=== PATIENT | female | born 1940 | race Caucasian/White ===

== ENCOUNTER → 2020-07-12 09:18 | Outpatient (BNVA) | payer MEDICARE, SELFPAY | PROVIDERS: PCP Internal Medicine; Visit Provider Surgery | DX: E11.622 Type 2 diabetes mellitus with other skin ulcer (principal); E11.69 Type 2 diabetes mellitus with other specified complication; L89.154 Pressure ulcer of sacral region, stage 4; M86.9 Osteomyelitis, unspecified; D64.9 Anemia, unspecified; Z79.84 Long term (current) use of oral hypoglycemic drugs; Z79.899 Other long term (current) drug therapy | CPT/HCPCS: 99213 ==

== ENCOUNTER 2020-07-18 14:15 | Outpatient (RCR) | payer MEDICARE, SELFPAY | END 2020-11-01 13:23 | disposition home or self-care (01) | LOC: HO.WCC 14:15 | PROVIDERS: PCP Internal Medicine; Visit Provider Physician Assistant Surgical | DX: E11.622 Type 2 diabetes mellitus with other skin ulcer (principal); L89.154 Pressure ulcer of sacral region, stage 4; E11.69 Type 2 diabetes mellitus with other specified complication; M86.18 Other acute osteomyelitis, other site; I10 Essential (primary) hypertension; Z86.19 Personal history of other infectious and parasitic diseases; Z79.899 Other long term (current) drug therapy; Z79.891 Long term (current) use of opiate analgesic | CPT/HCPCS: 11042; 11043; 11044; 11045; 11046; 11047; 87071; 87077; 87147; 87186; 87205; 88304; 88305; 88311 ==

== ENCOUNTER 2020-09-11 15:32 | Inpatient (IN) | payer MEDICARE, SELFPAY ==
[2020-09-11] VITALS (7 sets, daily range): BP systolic 89–106; BP diastolic 41–62; PULSE 74–90; RESP 12–17; TEMP 36.4–36.7; O2SAT 99–100; BMI 19.5
--- NOTE | 2020-09-11 15:38 | ECG_ITS ---
Test Reason : SOB Blood Pressure : / mmHG Vent. Rate : 075 BPM Atrial Rate : 075 BPM P-R Int : 142 ms QRS Dur : 076 ms QT Int : 418 ms P-R-T Axes : 068 066 073 degrees QTc Int : 466 ms Normal sinus rhythm Normal ECG When compared with ECG of 22-FEB-2020 16:03, T wave amplitude has increased in Inferior leads Nonspecific T wave abnormality no longer evident in Lateral leads Referred By: Haley Mcmahon Electronically Signed By:MAURICE HERNANDEZ MD
--- NOTE | 2020-09-11 15:39 | XR_ITS ---
EXAMINATION: CHEST AND PELVIS CLINICAL INFORMATION: Pneumonia. Weakness. Wound. Evaluate for osteo COMPARISON: None TECHNIQUE: AP portable chest. Single limited oblique view of the pelvis. FINDINGS: Rotated AP view of the chest demonstrates some parenchymal disease within the mid right lung. No pneumothorax or pleural effusion. Heart normal size. No evidence of pulmonary edema. Limited AP view of the pelvis which is oblique demonstrate patient be status post what appears to be previous instrumentation L5-S1 with pedicle screw and van fixation. On the provided views no definite acute fracture or diastases is seen. Evaluation for possible osteomyelitis is extremely limited and if better evaluation is necessary CT to look for bony destruction or MRI or tagged white blood cell nuclear medicine study may give more information. XR/XR chest 1V IMPRESSION: Right lung disease. Extremely limited pelvic view as described.
--- NOTE | 2020-09-11 15:41 | ED.RECABL ---
HPI - Recheck/Abnormal Lab/Rx General Chief Complaint: Recheck/Abnormal Lab/Rx <Haley Mcmahon NP - Last Filed: 09/11/20 21:23> Stated Complaint: sepsis <Haley Mcmahon NP - Last Filed: 09/11/20 21:23> Time Seen by Provider: 09/11/20 15:38 <Haley Mcmahon NP - Last Filed: 09/11/20 21:23> Source: EMS <Haley Mcmahon NP - Last Filed: 09/11/20 21:23> Mode of arrival: EMS <Haley Mcmahon NP - Last Filed: 09/11/20 21:23> Limitations: no limitations <Haley Mcmahon NP - Last Filed: 09/11/20 21:23> History of Present Illness HPI narrative: 80-year-old female coming from [facility] with a past medical history of stage IV pressure ulcer with history of osteomyelitis (02/09/20, MRSA/enterococcal) followed by the [facility] and surgery, diabetes, high cholesterol, hypertension, anemia, DJD, chronic venous stasis ulcers dermatitis, CAD, anxiety here with abnormal WBC count. Per report from EMS patient had labs drawn today which showed a white blood cell count of 16,000. Per report the patient has been more confused from baseline. EMS who knows the patient well as a transfer her weekly to her wound care appointment tell me that it to them her mental status seems to be at baseline. Patient complaining of some abdominal upset, and nausea. She denies any vomiting, diarrhea, cough, shortness of breath, chest pain, fevers, chills, body aches <Haley Mcmahon NP - Last Filed: 09/11/20 21:23> MD complaint: abnormal lab <Haley Mcmahon NP - Last Filed: 09/11/20 21:23> Returns today for: called because of abnormal lab/test <Haley Mcmahon NP - Last Filed: 09/11/20 21:23> Symptoms since prior visit: no new symptoms <Haley Mcmahon NP - Last Filed: 09/11/20 21:23> Related Data Home Medications: Home Medications Medication Instructions Recorded Confirmed Lactobacillus rhamnosus GG 10 1 cap PO BID PRN 07/12/20 09/11/20 billion cell capsule acetaminophen 325 mg capsule 650 mg PO Q6H PRN 07/12/20 09/11/20 ammonium lactate 12 % lotion 1 applic TOPICAL DAILY 07/12/20 09/11/20 bisacodyl 5 mg tablet,delayed 5 mg PO BEDTIME PRN 07/12/20 09/11/20 release diclofenac sodium 1 % topical gel 4 g TOPICAL BID g 07/12/20 09/11/20 metformin 1,000 mg tablet,extended 1,000 mg PO DAILY 07/12/20 09/11/20 release 24hr metoprolol tartrate 50 mg tablet 50 mg PO BID 07/12/20 09/11/20 oxycodone 10 mg tablet 10 mg PO TID PRN 07/12/20 09/11/20 oxycodone 15 mg tablet,crush 15 mg PO Q12H 07/12/20 09/11/20 resistant,extended release 12 hr pantoprazole 40 mg tablet,delayed 40 mg PO DAILY 07/12/20 09/11/20 release polyethylene glycol 3350 17 gram 17 g PO DAILY 07/12/20 09/11/20 oral powder packet sennosides 8.6 mg tablet 8.6 mg PO BEDTIME PRN 07/12/20 09/11/20 <Haley Mcmahon NP - Last Filed: 09/11/20 21:23> Allergies/Adverse Reactions: Allergies Allergy/AdvReac Type Severity Reaction Status Date / Time Clindamycin Allergy Unknown Rash Uncoded 05/10/20 00:00 <Haley Mcmahon NP - Last Filed: 09/11/20 21:23> Review of Systems Review of Systems: Yes all other systems are reviewed and are negative <Haley Mcmahon NP - Last Filed: 09/11/20 21:23> Constitutional: Constitutional: Reports no additional constitutional complaints, Denies body ache(s), Denies chills, Denies fever(s), Denies headache(s) and Denies weakness <Haley Mcmahon NP - Last Filed: 09/11/20 21:23> Eyes: Eyes: Reports no additional eye complaints and Denies change in vision <Haley Mcmahon [employer] - Last Filed: 09/11/20 21:23> ENT: Reports system reviewed and no additional complaints, except as documented, Denies dizziness, Denies headache(s), Denies nasal congestion, Denies nasal discharge and Denies neck pain <Haley Mcmahon [employer] - Last Filed: 09/11/20 21:23> Cardiovascular: Cardiovascular: Reports no additional cardiovascular complaints, Denies chest pain, Denies leg edema and Denies dyspnea <Haley Mcmahon [employer] - Last Filed: 09/11/20 21:23> Respiratory: Respiratory: Reports no additional respiratory complaints, Denies cough and Denies dyspnea <Haley Mcmahon [employer]ST[employer] - Last Filed: 09/11/20 21:23> Gastrointestinal: Gastrointestinal: Reports no additional gastrointestinal complaints, Reports abdominal pain, Denies diarrhea, Reports nausea and Denies vomiting <Haley Mcmahon [employer]ST[employer] - Last Filed: 09/11/20 21:23> Genitourinary: Genitourinary: Reports no additional female genitourinary complaints and Denies urinary incontinence <Haley Mcmahon [employer] - Last Filed: 09/11/20 21:23> Musculoskeletal: Musculoskeletal: Reports no additional musculoskeletal complaints, Denies back pain, Denies arthralgias, Denies joint swelling, Denies neck pain, Denies numbness and Denies tingling <Haley Mcmahon [employer]ST[employer]ER - Last Filed: 09/11/20 21:23> Integumentary/Breasts: Skin/Breast: Reports system reviewed and no additional complaints, except as docu and Denies rash <Haley Mcmahon [employer] - Last Filed: 09/11/20 21:23> Neurologic: Reports system reviewed and no additional complaints, except as documented, Denies Abnormal speech present, Denies dizziness, Denies headache(s), Denies numbness, Denies tingling and Denies weakness <Haley Mcmahon [employer] - Last Filed: 09/11/20 21:23> PMFSH Past Medical History Attestation statement: The following information was validated with the patient. <Haley Mcmahon [employer] - Last Filed: 09/11/20 21:23> Source: old records reviewed and nursing notes reviewed <Haley Mcmahon NP - Last Filed: 09/11/20 21:23> Medical History: Medical History Anemia Anxiety disorder Chondrocostal junction syndrome [tietze] COVID-19 Hyperlipidemia Lymphedema Osteomyelitis of sacrum Type 2 diabetes mellitus <Haley Mcmahon NP - Last Filed: 09/11/20 21:23> Surgical History: Surgical History H/O lumbosacral spine surgery Sacral decubitus ulcer, stage IV <Haley Mcmahon NP - Last Filed: 09/11/20 21:23> Social History Social History: Social History Alcohol intake: never Smoking Status: Never smoker Use of substances other than those prescribed or required for medical reasons: No Advance Directives: No Advance Directives Information Provided: No <Haley Mcmahon NP - Last Filed: 09/11/20 21:23> Physical Exam Vital Signs: Vital Signs: Last Vital Signs Temp 97.6 F 09/11/20 21:28 Pulse 88 09/11/20 21:47 Resp 16 09/11/20 21:47 BP 106/61 09/11/20 21:47 Pulse Ox 100 09/11/20 21:47 Body Mass Index 19.5 <Haley Mcmahon NP - Last Filed: 09/11/20 21:23> Vital Signs: Last Vital Signs Temp 97.6 F 09/11/20 21:28 Pulse 88 09/11/20 21:47 Resp 16 09/11/20 21:47 BP 106/61 09/11/20 21:47 Pulse Ox 100 09/11/20 21:47 Body Mass Index 19.5 <Eduar Barahona MD - Last Filed: 09/11/20 22:30> Const: Other: thin appearing, tacky mucous membranes <Haley Mcmahon NP - Last Filed: 09/11/20 21:23> General: cooperative and no acute distress <Haley Mcmahon [employer]ST[employer] - Last Filed: 09/11/20 21:23> Orientation/consciousness: patient oriented x3 <Haley Mcmahon [employer] - Last Filed: 09/11/20 21:23> Limitations: no limitations <Haley Mcmahon NP - Last Filed: 09/11/20 21:23> HENMT: Head: Yes normal to inspection <Haley Mcmahon [employer]ER - Last Filed: 09/11/20 21:23> Ears: hearing grossly normal bilaterally <Haley Mcmahon [employer]ST[employer]ER - Last Filed: 09/11/20 21:23> General nose exam: Normal external nose present <Haley Mcmahon [employer]ER - Last Filed: 09/11/20 21:23> Face and sinus: Yes normal facial exam <Haley Mcmahon [employer]ST[employer]ER - Last Filed: 09/11/20 21:23> Mouth: Normal oral and palatal mucosa present <Haley Mcmahon [employer]ST[employer]ER - Last Filed: 09/11/20 21:23> Throat: Yes posterior oropharynx normal <Haley Mcmahon [employer]ST[employer]ER - Last Filed: 09/11/20 21:23> Eyes: General: appearance normal, both eyes and all related structures <Haley Mcmahon [employer]ST[employer]ER - Last Filed: 09/11/20 21:23> Pupils: Equal, round and reactive pupils present <Haley Mcmahon [employer]STALLER - Last Filed: 09/11/20 21:23> Neck: Neck: Yes normal visual inspection <Haley Mcmahon [employer]STALLER - Last Filed: 09/11/20 21:23> Chest: Chest palpation & inspection: normal inspection of the chest <Haley Mcmahon NP - Last Filed: 09/11/20 21:23> Resp: Effort & Inspection: normal respiratory effort <Haley Mcmahon [employer] INSTALLER - Last Filed: 09/11/20 21:23> Auscultation: clear to auscultation bilaterally <Haley Mcmahon [employer]ER INSTALLER - Last Filed: 09/11/20 21:23> Cardio: Rate: regular rate <Haley Mcmahon NP - Last Filed: 09/11/20 21:23> Rhythm: regular rhythm <Haley Mcmahon NP - Last Filed: 09/11/20:23> Peripheral pulses: Peripheral pulses 2+ throughout <Haley Mcmahon NP - Last Filed: 09/11/20 21:23> GI: Other: Mild diffuse tenderness. No focal tenderness, rebound or guarding <Haley Mcmahon NP - Last Filed: 09/11/20:23> Inspection: Yes normal to inspection <Haley Mcmahon NP - Last Filed: 09/11/20 21:23> Palpation (GI): Soft to palpation <Haley Mcmahon NP - Last Filed: 09/11/20:23> Auscultation: normal bowel sounds <Haley Mcmahon NP - Last Filed: 09/11/20 21:23> Back/Spine/Pelvis: Thoracic/Lumbar Spine: thoracic and lumbar spine normal to inspection <Haley Mcmahon NP - Last Filed: 09/11/20:23> Skin: Other: Stage IV pressure ulcer noted over the sacrum. Dressing removed with purulent drainage noted on the dressing and partially over the wound bed with a foul odor. Unable to completely evaluate the wound. <Haley Mcmahon NP - Last Filed: 09/11/20 21:23> General skin exam: no rashes or lesions noted <Haley Mcmahon NP - Last Filed: 09/11/20 21:23> Neuro: General: patient oriented x3, no focal motor deficits, normal sensation to monofilament and Unable to assess gait <Haley Mcmahon NP - Last Filed: 09/11/20 21:23> Cranial nerves: Yes Equal, round and reactive pupils present <Haley cMmahon NP - Last Filed: 09/11/20 21:23> Cognition (Neuro): normal cognition <Haley Mcmahon NP - Last Filed: 09/11/20 21:23> Speech: No Abnormal speech present <Haley Mcmahon NP - Last Filed: 09/11/20 21:23> Gait exam (Neuro): Unable to assess gait <Haley Mcmahon NP - Last Filed: 09/11/20 21:23> Motor exam (neuro): 5/5 motor strength present throughout <Haley Mcmahon NP - Last Filed: 09/11/20 21:23> Sensory Exam: Normal double simultaneous stimulation for sensation <Haley Mcmahon NP - Last Filed: 09/11/20 21:23> Extrem: General: Yes normal to inspection <Haley Mcmahon NP - Last Filed: 09/11/20 21:23> Course Course Course Narrative: 80 yo female from [facility] sent for leukocytosis and AMS. On arrival the patient is alert and oriented x3. Per EMS who know patient very well she is at her baseline. She was noted to be tachycardic and hypotensive on per EMS (HR 130, bp 82/43 and received 500ml NS, 4mg IV zofran) and c/o generalized abdominal discomfort and nausea. On arrival here she has a heart rate of 74 and a blood pressure of 91/43. Afebrile. On exam she does have some mild diffuse abdominal pain with no focal tenderness. Of note, she has a known stage 4 pressure ulcer with a h/o osteomyelitis not currently on antibiotics. The wound is noted stage 4 on the sacrum with foul odor, purulent drainage, tunneling. No surround erythema outside of the wound bed. Will need labs including blood cultures and lactic acid, chest x-ray, UA, EKG, COVID testing, imaging of the sacral wound. At this time infection is suspected. Normal saline 30 cc/kilos ordered. Antibiotics ordered. 1814-reviewed labs which show leukocytosis, anemia unchanged from baseline, elevated lactic acid, acute renal failure with hyperkalemia 7.2 with a bicarb 14. Metabolic acidosis likely contributing to hyperkalemia likely secondary to sepsis. EKG shows normal sinus rhythm. No EKG changes noted. Patient given insulin IV, dextrose IV, Kayexalate p.o. and calcium gluconate for cardiac protection. Edwards catheter ordered and placed by nursing. Purulent urine output of 50 cc noted. Patient on case monitor. CT A/P ordered. Will discuss with nephrology. 1899-Discussed with Evangelist Lema from nephrology. Recommended sodium bicarb 150meq in D5W bolus x1, re-check chem 7, start 2nd liter same at maintenance. Call back with update. If not diuresising and no change in potassium patient may need emergent dialysis and ICU admission. Discussed with the patient and she is aware of plan of care. I did speak to her Andrei and he is aware of plan of care. She is a full code and agreeable to dialysis if needed. Called pharmacy to order fluids. 2014-Delay in receiving fluids d/t pharmacy having to prepare it. Started now by nursing. 2100-After 30cc/kg bolus patient has a blood pressure of 89/41. Focused exam done. She is alert and oriented. Discussed with nephrology about starting pressers vs fluid resuscitation. They recommended aggressive fluid resuscitation as patient is likely volume depleted, hold on pressers until bolus of bicarb/D5W done then re-evaluate. Repeat lung sounds clear, stable saturations. Pharmacy assisted with vancomycin dosed. CT shows changes in the sacrum and buttocks consistent with ulcer with associated bony destructive changes with soft tissue swelling and air suggesting osteomyelitis. Sign out to Dr Barahona pending repeat labs, discussion with nephrology, admission. <Haley Mcmahon NP - Last Filed: 09/11/20 21:23> Reevaluation(s) Reevaluation #1: Patient repeat labs showed potassium of 5.8 creatinine of 4.09 bicarb improved to 19 will admit patient for urosepsis and acute renal failure <Eduar Barahona MD - Last Filed: 09/11/20 22:30> Time: 22:29 <Eduar Barahona MD - Last Filed: 09/11/20 22:30> MDM - Recheck/Abnormal Lab/Rx MDM Narrative Medical decision making narrative: Viral syndrome, COVID-19, pneumonia, UTI, ischemic colitis, osteomyelitis <Haley Mcmahon NP - Last Filed: 09/11/20 21:23> Medical Records Attestation: I reviewed the patient's medical records. <Haley Mcmahon NP - Last Filed: 09/11/20 21:23> Lab Data Attestation: I reviewed the patient's lab results. <Haley Mcmahon NP - Last Filed: 09/11/20 21:23> Result diagrams: : 09/11/20 16:33 09/11/20 21:34 <Haley Mcmahon NP - Last Filed: 09/11/20 21:23> Labs: Lab Results 09/11/20 09/11/20 09/11/20 Range/Units 16:32 16:32 16:32 WBC (4.8-10.8) X10*3/uL RBC (4.20-5.50) X10*6/uL Hgb (12.0-16.0) g/dl Hct (37-47) % MCV (80-98) fL MCH (27.0-33.0) pg MCHC (31.0-35.0) g/dl RDW (11.0-16.0) % Plt Count (160-400) X10*3/uL MPV (9.4-12.3) fL Immature Gran % (Auto) (0.0-0.4) % Neut % (Auto) (45-73) % Lymph % (Auto) (20-40) % Haines % (Auto) (2-11) % Eos % (Auto) (0-4) % Baso % (Auto) (0-2) % Lymph # (Auto) (1.2-4.9) X10*3/uL Haines # (Auto) (0.1-1.2) X10*3/uL Eos # (Auto) (0.0-0.4) X10*3/uL Baso # (Auto) (0.0-0.2) X10*3/uL Abs Immat Gran (auto) (0.00-0.03) X10*3/uL Absolute Neuts (auto) (2.0-8.3) X10*3/uL Absolute Nucleated RBC (0.0-0.012) X10*3/uL Nucleated RBC % (auto) (0.0-0.2) /100WBC PT (10.8-13.0) SEC INR (0.9-1.1) Sodium 137 (135-145) mmol/L Potassium 7.2 H* (3.3-5.1) mmol/l Chloride 103 (96-108) mmol/L Carbon Dioxide 14 L (22-29) mmol/L Anion Gap 27 H (12-20) BUN 115 H* (9-16) mg/dL Creatinine 4.18 H* (0.5-1.4) mg/dL Estim Creat Clear Calc 9.6 Estimated GFR 10 Random Glucose 89 (60-115) mg/dL Lactic Acid 3.8 H* (0.5-2.0) mmol/L Lactic Acid Fup @ 2Hr (0.5-2.0) mmol/L Calcium 8.4 (8.4-10.2) mg/dL Magnesium 2.2 (1.6-2.6) mg/dL Total Bilirubin 0.5 (0.0-1.0) mg/dL Direct Bilirubin 0.2 (0.0-0.5) mg/dL AST 18 (5-31) U/L ALT 7 (0-31) U/L Alkaline Phosphatase 96 (39-117) U/L Troponin I High Sens 5.1 (<3.5-17.0) ng/L Total Protein 6.7 (6.5-8.0) g/dL Albumin 2.4 L (3.5-5.0) g/dL Urine Color Urine Appearance Urine pH (5.0-8.0) Ur Specific Blaine (1.005-1.025) Urine Protein (NEG-TRACE) MG/DL Urine Glucose (UA) (NEG) MG/DL Urine Ketones (NEG) MG/DL Urine Blood (NEG) Urine Nitrite (NEG) Ur Leukocyte Esterase (NEG) Urine RBC (0) /HPF Urine WBC (0-4) /HPF Ur Squamous Epith Cells /LPF Urine Bacteria /LPF Coronavirus (PCR) (Negative) Influenza Type A (PCR) (Negative) Influenza Type B (PCR) (Negative) RSV RNA Qual (PCR) (Negative) 09/11/20 09/11/20 09/11/20 Range/Units 16:32 16:33 16:33 WBC 16.1 H (4.8-10.8) X10*3/uL RBC 3.54 L (4.20-5.50) X10*6/uL Hgb 8.7 L (12.0-16.0) g/dl Hct 29.6 L (37-47) % MCV 83.6 (80-98) fL MCH 24.6 L (27.0-33.0) pg MCHC 29.4 L (31.0-35.0) g/dl RDW 15.4 (11.0-16.0) % Plt Count 378 (160-400) X10*3/uL MPV 9.2 L (9.4-12.3) fL Immature Gran % (Auto) 1.0 H (0.0-0.4) % Neut % (Auto) 90.7 H (45-73) % Lymph % (Auto) 5.2 L (20-40) % Haines % (Auto) 3.0 (2-11) % Eos % (Auto) 0.0 (0-4) % Baso % (Auto) 0.1 (0-2) % Lymph # (Auto) 0.8 L (1.2-4.9) X10*3/uL Haines # (Auto) 0.5 (0.1-1.2) X10*3/uL Eos # (Auto) 0.0 (0.0-0.4) X10*3/uL Baso # (Auto) 0.0 (0.0-0.2) X10*3/uL Abs Immat Gran (auto) 0.16 H (0.00-0.03) X10*3/uL Absolute Neuts (auto) 14.6 H (2.0-8.3) X10*3/uL Absolute Nucleated RBC 0.000 (0.0-0.012) X10*3/uL Nucleated RBC % (auto) 0.0 (0.0-0.2) /100WBC PT 14.7 H (10.8-13.0) SEC INR 1.2 H (0.9-1.1) Sodium (135-145) mmol/L Potassium (3.3-5.1) mmol/l Chloride (96-108) mmol/L Carbon Dioxide (22-29) mmol/L Anion Gap (12-20) BUN (9-16) mg/dL Creatinine (0.5-1.4) mg/dL Estim Creat Clear Calc Estimated GFR Random Glucose (60-115) mg/dL Lactic Acid (0.5-2.0) mmol/L Lactic Acid Fup @ 2Hr (0.5-2.0) mmol/L Calcium (8.4-10.2) mg/dL Magnesium (1.6-2.6) mg/dL Total Bilirubin (0.0-1.0) mg/dL Direct Bilirubin (0.0-0.5) mg/dL AST (5-31) U/L ALT (0-31) U/L Alkaline Phosphatase (39-117) U/L Troponin I High Sens (<3.5-17.0) ng/L Total Protein (6.5-8.0) g/dL Albumin (3.5-5.0) g/dL Urine Color Urine Appearance Urine pH (5.0-8.0) Ur Specific Blaine (1.005-1.025) Urine Protein (NEG-TRACE) MG/DL Urine Glucose (UA) (NEG) MG/DL Urine Ketones (NEG) MG/DL Urine Blood (NEG) Urine Nitrite (NEG) Ur Leukocyte Esterase (NEG) Urine RBC (0) /HPF Urine WBC (0-4) /HPF Ur Squamous Epith Cells /LPF Urine Bacteria /LPF Coronavirus (PCR) NEGATIVE (Negative) Influenza Type A (PCR) NEGATIVE (Negative) Influenza Type B (PCR) NEGATIVE (Negative) RSV RNA Qual (PCR) NEGATIVE (Negative) 09/11/20 09/11/20 09/11/20 Range/Units 18:26 20:28 21:34 WBC (4.8-10.8) X10*3/uL RBC (4.20-5.50) X10*6/uL Hgb (12.0-16.0) g/dl Hct (37-47) % MCV (80-98) fL MCH (27.0-33.0) pg MCHC (31.0-35.0) g/dl RDW (11.0-16.0) % Plt Count (160-400) X10*3/uL MPV (9.4-12.3) fL Immature Gran % (Auto) (0.0-0.4) % Neut % (Auto) (45-73) % Lymph % (Auto) (20-40) % Haines % (Auto) (2-11) % Eos % (Auto) (0-4) % Baso % (Auto) (0-2) % Lymph # (Auto) (1.2-4.9) X10*3/uL Haines # (Auto) (0.1-1.2) X10*3/uL Eos # (Auto) (0.0-0.4) X10*3/uL Baso # (Auto) (0.0-0.2) X10*3/uL Abs Immat Gran (auto) (0.00-0.03) X10*3/uL Absolute Neuts (auto) (2.0-8.3) X10*3/uL Absolute Nucleated RBC (0.0-0.012) X10*3/uL Nucleated RBC % (auto) (0.0-0.2) /100WBC PT (10.8-13.0) SEC INR (0.9-1.1) Sodium 138 (135-145) mmol/L Potassium 5.8 H (3.3-5.1) mmol/l Chloride 101 (96-108) mmol/L Carbon Dioxide 19 L (22-29) mmol/L Anion Gap 24 H (12-20) BUN 110 H* (9-16) mg/dL Creatinine 4.09 H* (0.5-1.4) mg/dL Estim Creat Clear Calc 9.8 Estimated GFR 11 Random Glucose 278 H D (60-115) mg/dL Lactic Acid (0.5-2.0) mmol/L Lactic Acid Fup @ 2Hr 7.5 H* (0.5-2.0) mmol/L Calcium 7.9 L (8.4-10.2) mg/dL Magnesium (1.6-2.6) mg/dL Total Bilirubin (0.0-1.0) mg/dL Direct Bilirubin (0.0-0.5) mg/dL AST (5-31) U/L ALT (0-31) U/L Alkaline Phosphatase (39-117) U/L Troponin I High Sens (<3.5-17.0) ng/L Total Protein (6.5-8.0) g/dL Albumin (3.5-5.0) g/dL Urine Color YELLOW Urine Appearance TURBID Urine pH 7.0 (5.0-8.0) Ur Specific Blaine 1.025 (1.005-1.025) Urine Protein 2+ H (NEG-TRACE) MG/DL Urine Glucose (UA) 100 H (NEG) MG/DL Urine Ketones 5 (NEG) MG/DL Urine Blood 2+ H (NEG) Urine Nitrite POS H (NEG) Ur Leukocyte Esterase 3+ H (NEG) Urine RBC 10-14 H (0) /HPF Urine WBC TNTC H (0-4) /HPF Ur Squamous Epith Cells NONE /LPF Urine Bacteria 4+ /LPF Coronavirus (PCR) (Negative) Influenza Type A (PCR) (Negative) Influenza Type B (PCR) (Negative) RSV RNA Qual (PCR) (Negative) 09/11/20 Range/Units 21:34 WBC (4.8-10.8) X10*3/uL RBC (4.20-5.50) X10*6/uL Hgb (12.0-16.0) g/dl Hct (37-47) % MCV (80-98) fL MCH (27.0-33.0) pg MCHC (31.0-35.0) g/dl RDW (11.0-16.0) % Plt Count (160-400) X10*3/uL MPV (9.4-12.3) fL Immature Gran % (Auto) (0.0-0.4) % Neut % (Auto) (45-73) % Lymph % (Auto) (20-40) % Haines % (Auto) (2-11) % Eos % (Auto) (0-4) % Baso % (Auto) (0-2) % Lymph # (Auto) (1.2-4.9) X10*3/uL Haines # (Auto) (0.1-1.2) X10*3/uL Eos # (Auto) (0.0-0.4) X10*3/uL Baso # (Auto) (0.0-0.2) X10*3/uL Abs Immat Gran (auto) (0.00-0.03) X10*3/uL Absolute Neuts (auto) (2.0-8.3) X10*3/uL Absolute Nucleated RBC (0.0-0.012) X10*3/uL Nucleated RBC % (auto) (0.0-0.2) /100WBC PT (10.8-13.0) SEC INR (0.9-1.1) Sodium (135-145) mmol/L Potassium (3.3-5.1) mmol/l Chloride (96-108) mmol/L Carbon Dioxide (22-29) mmol/L Anion Gap (12-20) BUN (9-16) mg/dL Creatinine (0.5-1.4) mg/dL Estim Creat Clear Calc Estimated GFR Random Glucose (60-115) mg/dL Lactic Acid (0.5-2.0) mmol/L Lactic Acid Fup @ 2Hr (0.5-2.0) mmol/L Calcium (8.4-10.2) mg/dL Magnesium (1.6-2.6) mg/dL Total Bilirubin (0.0-1.0) mg/dL Direct Bilirubin (0.0-0.5) mg/dL AST (5-31) U/L ALT (0-31) U/L Alkaline Phosphatase (39-117) U/L Troponin I High Sens 5.7 (<3.5-17.0) ng/L Total Protein (6.5-8.0) g/dL Albumin (3.5-5.0) g/dL Urine Color Urine Appearance Urine pH (5.0-8.0) Ur Specific Blaine (1.005-1.025) Urine Protein (NEG-TRACE) MG/DL Urine Glucose (UA) (NEG) MG/DL Urine Ketones (NEG) MG/DL Urine Blood (NEG) Urine Nitrite (NEG) Ur Leukocyte Esterase (NEG) Urine RBC (0) /HPF Urine WBC (0-4) /HPF Ur Squamous Epith Cells /LPF Urine Bacteria /LPF Coronavirus (PCR) (Negative) Influenza Type A (PCR) (Negative) Influenza Type B (PCR) (Negative) RSV RNA Qual (PCR) (Negative) <Haley Mcmahon, ALLIE - Last Filed: 09/11/20 21:23> Lab Results 09/11/20 09/11/20 09/11/20 Range/Units 16:32 16:32 16:32 WBC (4.8-10.8) X10*3/uL RBC (4.20-5.50) X10*6/uL Hgb (12.0-16.0) g/dl Hct (37-47) % MCV (80-98) fL MCH (27.0-33.0) pg MCHC (31.0-35.0) g/dl RDW (11.0-16.0) % Plt Count (160-400) X10*3/uL MPV (9.4-12.3) fL Immature Gran % (Auto) (0.0-0.4) % Neut % (Auto) (45-73) % Lymph % (Auto) (20-40) % Haines % (Auto) (2-11) % Eos % (Auto) (0-4) % Baso % (Auto) (0-2) % Lymph # (Auto) (1.2-4.9) X10*3/uL Haines # (Auto) (0.1-1.2) X10*3/uL Eos # (Auto) (0.0-0.4) X10*3/uL Baso # (Auto) (0.0-0.2) X10*3/uL Abs Immat Gran (auto) (0.00-0.03) X10*3/uL Absolute Neuts (auto) (2.0-8.3) X10*3/uL Absolute Nucleated RBC (0.0-0.012) X10*3/uL Nucleated RBC % (auto) (0.0-0.2) /100WBC PT (10.8-13.0) SEC INR (0.9-1.1) Sodium 137 (135-145) mmol/L Potassium 7.2 H* (3.3-5.1) mmol/l Chloride 103 (96-108) mmol/L Carbon Dioxide 14 L (22-29) mmol/L Anion Gap 27 H (12-20) BUN 115 H* (9-16) mg/dL Creatinine 4.18 H* (0.5-1.4) mg/dL Estim Creat Clear Calc 9.6 Estimated GFR 10 Random Glucose 89 (60-115) mg/dL Lactic Acid 3.8 H* (0.5-2.0) mmol/L Lactic Acid Fup @ 2Hr (0.5-2.0) mmol/L Calcium 8.4 (8.4-10.2) mg/dL Magnesium 2.2 (1.6-2.6) mg/dL Total Bilirubin 0.5 (0.0-1.0) mg/dL Direct Bilirubin 0.2 (0.0-0.5) mg/dL AST 18 (5-31) U/L ALT 7 (0-31) U/L Alkaline Phosphatase 96 (39-117) U/L Troponin I High Sens 5.1 (<3.5-17.0) ng/L Total Protein 6.7 (6.5-8.0) g/dL Albumin 2.4 L (3.5-5.0) g/dL Urine Color Urine Appearance Urine pH (5.0-8.0) Ur Specific Blaine (1.005-1.025) Urine Protein (NEG-TRACE) MG/DL Urine Glucose (UA) (NEG) MG/DL Urine Ketones (NEG) MG/DL Urine Blood (NEG) Urine Nitrite (NEG) Ur Leukocyte Esterase (NEG) Urine RBC (0) /HPF Urine WBC (0-4) /HPF Ur Squamous Epith Cells /LPF Urine Bacteria /LPF Coronavirus (PCR) (Negative) Influenza Type A (PCR) (Negative) Influenza Type B (PCR) (Negative) RSV RNA Qual (PCR) (Negative) 09/11/20 09/11/20 09/11/20 Range/Units 16:32 16:33 16:33 WBC 16.1 H (4.8-10.8) X10*3/uL RBC 3.54 L (4.20-5.50) X10*6/uL Hgb 8.7 L (12.0-16.0) g/dl Hct 29.6 L (37-47) % MCV 83.6 (80-98) fL MCH 24.6 L (27.0-33.0) pg MCHC 29.4 L (31.0-35.0) g/dl RDW 15.4 (11.0-16.0) % Plt Count 378 (160-400) X10*3/uL MPV 9.2 L (9.4-12.3) fL Immature Gran % (Auto) 1.0 H (0.0-0.4) % Neut % (Auto) 90.7 H (45-73) % Lymph % (Auto) 5.2 L (20-40) % Haines % (Auto) 3.0 (2-11) % Eos % (Auto) 0.0 (0-4) % Baso % (Auto) 0.1 (0-2) % Lymph # (Auto) 0.8 L (1.2-4.9) X10*3/uL Haines # (Auto) 0.5 (0.1-1.2) X10*3/uL Eos # (Auto) 0.0 (0.0-0.4) X10*3/uL Baso # (Auto) 0.0 (0.0-0.2) X10*3/uL Abs Immat Gran (auto) 0.16 H (0.00-0.03) X10*3/uL Absolute Neuts (auto) 14.6 H (2.0-8.3) X10*3/uL Absolute Nucleated RBC 0.000 (0.0-0.012) X10*3/uL Nucleated RBC % (auto) 0.0 (0.0-0.2) /100WBC PT 14.7 H (10.8-13.0) SEC INR 1.2 H (0.9-1.1) Sodium (135-145) mmol/L Potassium (3.3-5.1) mmol/l Chloride (96-108) mmol/L Carbon Dioxide (22-29) mmol/L Anion Gap (12-20) BUN (9-16) mg/dL Creatinine (0.5-1.4) mg/dL Estim Creat Clear Calc Estimated GFR Random Glucose (60-115) mg/dL Lactic Acid (0.5-2.0) mmol/L Lactic Acid Fup @ 2Hr (0.5-2.0) mmol/L Calcium (8.4-10.2) mg/dL Magnesium (1.6-2.6) mg/dL Total Bilirubin (0.0-1.0) mg/dL Direct Bilirubin (0.0-0.5) mg/dL AST (5-31) U/L ALT (0-31) U/L Alkaline Phosphatase (39-117) U/L Troponin I High Sens (<3.5-17.0) ng/L Total Protein (6.5-8.0) g/dL Albumin (3.5-5.0) g/dL Urine Color Urine Appearance Urine pH (5.0-8.0) Ur Specific Blaine (1.005-1.025) Urine Protein (NEG-TRACE) MG/DL Urine Glucose (UA) (NEG) MG/DL Urine Ketones (NEG) MG/DL Urine Blood (NEG) Urine Nitrite (NEG) Ur Leukocyte Esterase (NEG) Urine RBC (0) /HPF Urine WBC (0-4) /HPF Ur Squamous Epith Cells /LPF Urine Bacteria /LPF Coronavirus (PCR) NEGATIVE (Negative) Influenza Type A (PCR) NEGATIVE (Negative) Influenza Type B (PCR) NEGATIVE (Negative) RSV RNA Qual (PCR) NEGATIVE (Negative) 09/11/20 09/11/20 09/11/20 Range/Units 18:26 20:28 21:34 WBC (4.8-10.8) X10*3/uL RBC (4.20-5.50) X10*6/uL Hgb (12.0-16.0) g/dl Hct (37-47) % MCV (80-98) fL MCH (27.0-33.0) pg MCHC (31.0-35.0) g/dl RDW (11.0-16.0) % Plt Count (160-400) X10*3/uL MPV (9.4-12.3) fL Immature Gran % (Auto) (0.0-0.4) % Neut % (Auto) (45-73) % Lymph % (Auto) (20-40) % Haines % (Auto) (2-11) % Eos % (Auto) (0-4) % Baso % (Auto) (0-2) % Lymph # (Auto) (1.2-4.9) X10*3/uL Haines # (Auto) (0.1-1.2) X10*3/uL Eos # (Auto) (0.0-0.4) X10*3/uL Baso # (Auto) (0.0-0.2) X10*3/uL Abs Immat Gran (auto) (0.00-0.03) X10*3/uL Absolute Neuts (auto) (2.0-8.3) X10*3/uL Absolute Nucleated RBC (0.0-0.012) X10*3/uL Nucleated RBC % (auto) (0.0-0.2) /100WBC PT (10.8-13.0) SEC INR (0.9-1.1) Sodium 138 (135-145) mmol/L Potassium 5.8 H (3.3-5.1) mmol/l Chloride 101 (96-108) mmol/L Carbon Dioxide 19 L (22-29) mmol/L Anion Gap 24 H (12-20) BUN 110 H* (9-16) mg/dL Creatinine 4.09 H* (0.5-1.4) mg/dL Estim Creat Clear Calc 9.8 Estimated GFR 11 Random Glucose 278 H D (60-115) mg/dL Lactic Acid (0.5-2.0) mmol/L Lactic Acid Fup @ 2Hr 7.5 H* (0.5-2.0) mmol/L Calcium 7.9 L (8.4-10.2) mg/dL Magnesium (1.6-2.6) mg/dL Total Bilirubin (0.0-1.0) mg/dL Direct Bilirubin (0.0-0.5) mg/dL AST (5-31) U/L ALT (0-31) U/L Alkaline Phosphatase (39-117) U/L Troponin I High Sens (<3.5-17.0) ng/L Total Protein (6.5-8.0) g/dL Albumin (3.5-5.0) g/dL Urine Color YELLOW Urine Appearance TURBID Urine pH 7.0 (5.0-8.0) Ur Specific Blaine 1.025 (1.005-1.025) Urine Protein 2+ H (NEG-TRACE) MG/DL Urine Glucose (UA) 100 H (NEG) MG/DL Urine Ketones 5 (NEG) MG/DL Urine Blood 2+ H (NEG) Urine Nitrite POS H (NEG) Ur Leukocyte Esterase 3+ H (NEG) Urine RBC 10-14 H (0) /HPF Urine WBC TNTC H (0-4) /HPF Ur Squamous Epith Cells NONE /LPF Urine Bacteria 4+ /LPF Coronavirus (PCR) (Negative) Influenza Type A (PCR) (Negative) Influenza Type B (PCR) (Negative) RSV RNA Qual (PCR) (Negative) 12/21/20 Range/Units 21:34 WBC (4.8-10.8) X10*3/uL RBC (4.20-5.50) X10*6/uL Hgb (12.0-16.0) g/dl Hct (37-47) % MCV (80-98) fL MCH (27.0-33.0) pg MCHC (31.0-35.0) g/dl RDW (11.0-16.0) % Plt Count (160-400) X10*3/uL MPV (9.4-12.3) fL Immature Gran % (Auto) (0.0-0.4) % Neut % (Auto) (45-73) % Lymph % (Auto) (20-40) % Haines % (Auto) (2-11) % Eos % (Auto) (0-4) % Baso % (Auto) (0-2) % Lymph # (Auto) (1.2-4.9) X10*3/uL Haines # (Auto) (0.1-1.2) X10*3/uL Eos # (Auto) (0.0-0.4) X10*3/uL Baso # (Auto) (0.0-0.2) X10*3/uL Abs Immat Gran (auto) (0.00-0.03) X10*3/uL Absolute Neuts (auto) (2.0-8.3) X10*3/uL Absolute Nucleated RBC (0.0-0.012) X10*3/uL Nucleated RBC % (auto) (0.0-0.2) /100WBC PT (10.8-13.0) SEC INR (0.9-1.1) Sodium (135-145) mmol/L Potassium (3.3-5.1) mmol/l Chloride (96-108) mmol/L Carbon Dioxide (22-29) mmol/L Anion Gap (12-20) BUN (9-16) mg/dL Creatinine (0.5-1.4) mg/dL Estim Creat Clear Calc Estimated GFR Random Glucose (60-115) mg/dL Lactic Acid (0.5-2.0) mmol/L Lactic Acid Fup @ 2Hr (0.5-2.0) mmol/L Calcium (8.4-10.2) mg/dL Magnesium (1.6-2.6) mg/dL Total Bilirubin (0.0-1.0) mg/dL Direct Bilirubin (0.0-0.5) mg/dL AST (5-31) U/L ALT (0-31) U/L Alkaline Phosphatase (39-117) U/L Troponin I High Sens 5.7 (<3.5-17.0) ng/L Total Protein (6.5-8.0) g/dL Albumin (3.5-5.0) g/dL Urine Color Urine Appearance Urine pH (5.0-8.0) Ur Specific Blaine (1.005-1.025) Urine Protein (NEG-TRACE) MG/DL Urine Glucose (UA) (NEG) MG/DL Urine Ketones (NEG) MG/DL Urine Blood (NEG) Urine Nitrite (NEG) Ur Leukocyte Esterase (NEG) Urine RBC (0) /HPF Urine WBC (0-4) /HPF Ur Squamous Epith Cells /LPF Urine Bacteria /LPF Coronavirus (PCR) (Negative) Influenza Type A (PCR) (Negative) Influenza Type B (PCR) (Negative) RSV RNA Qual (PCR) (Negative) <Eduar Barahona MD - Last Filed: 09/11/20 22:30> Imaging Data Chest x-ray: Attestation: I personally reviewed and interpreted this imaging study as follows: <Haley Mcmahon NP - Last Filed: 09/11/20 21:23> Radiologist's impression: FINDINGS: Rotated AP view of the chest demonstrates some parenchymal disease within the mid right lung. No pneumothorax or pleural effusion. Heart normal size. No evidence of pulmonary edema. <Haley Mcmahon NP - Last Filed: 09/11/20 21:23> pelvis xray: Attestation: I personally reviewed and interpreted this imaging study as follows: <Haley Mcmahon NP - Last Filed: 09/11/20 21:23> Radiologist's impression: Limited AP view of the pelvis which is oblique demonstrate patient be status post what appears to be previous instrumentation L5-S1 with pedicle screw and van fixation. On the provided views no definite acute fracture or diastases is seen. Evaluation for possible osteomyelitis is extremely limited and if better evaluation is necessary CT to look for bony destruction or MRI or tagged white blood cell nuclear medicine study may give more information. <Haley Mcmahon NP - Last Filed: 09/11/20 21:23> ECG Data Attestation: I personally reviewed and interpreted this ECG as follows: <Haley Mcmahon NP - Last Filed: 09/11/20 21:23> ECG interpretation date: 09/11/20 <Haley Mcmahon NP - Last Filed: 09/11/20 21:23> ECG interpretation time: 18:01 <Haley Mcmahon NP - Last Filed: 09/11/20 21:23> Interpretation: NSR rate 75, normal pr, normal pr, normal qrs, normal st <Haley Mcmahon NP - Last Filed: 09/11/20 21:23> Critical Care Time Critical Care Time Critical Care Time: Yes <Haley Mcmahon NP - Last Filed: 09/11/20 21:23> Total Critical Care Time: 60 <Haley Mcmahon NP - Last Filed: 09/11/20 21:23> Attestation: Multiple re-evaluations, acute renal failure, sepsis, fluid management, antibiotic management, discussion with specialists, discussion with family <Haley Mcmahon NP - Last Filed: 09/11/20 21:23> Discharge Plan Discharge Clinical Impression: Sacral decubitus ulcer, stage IV, Osteomyelitis of sacrum, Acute UTI, Anemia Sepsis Qualifiers: Sepsis type: sepsis due to unspecified organism Sepsis acute organ dysfunction status: with acute organ dysfunction Severe sepsis acute organ dysfunction type: acute renal failure Acute renal failure type: with other specified pathological lesion Severe sepsis shock status: with septic shock Qualified Code(s): A41.9 - Sepsis, unspecified organism Leukocytosis Qualifiers: Leukocytosis type: unspecified Qualified Code(s): D72.829 - Elevated white blood cell count, unspecified Acute renal failure Qualifiers: Acute renal failure type: unspecified Qualified Code(s): N17.9 - Acute kidney failure, unspecified <Haley Mcmahon NP - Last Filed: 09/11/20 21:23> Patient Disposition: Admitted As Inpatient <Haley Mcmahon NP - Last Filed: 09/11/20 21:23>
--- NOTE | 2020-09-11 16:04 | XR_ITS ---
EXAMINATION: CHEST AND PELVIS CLINICAL INFORMATION: Pneumonia. Weakness. Wound. Evaluate for osteo COMPARISON: None TECHNIQUE: AP portable chest. Single limited oblique view of the pelvis. FINDINGS: Rotated AP view of the chest demonstrates some parenchymal disease within the mid right lung. No pneumothorax or pleural effusion. Heart normal size. No evidence of pulmonary edema. Limited AP view of the pelvis which is oblique demonstrate patient be status post what appears to be previous instrumentation L5-S1 with pedicle screw and van fixation. On the provided views no definite acute fracture or diastases is seen. Evaluation for possible osteomyelitis is extremely limited and if better evaluation is necessary CT to look for bony destruction or MRI or tagged white blood cell nuclear medicine study may give more information. XR/XR pelvis 1-2V IMPRESSION: Right lung disease. Extremely limited pelvic view as described.
[2020-09-11] MEDS: 0.9 % Sodium Chloride 1,650 ML 999 ML IV (16:37)
[2020-09-11 16:56] LABS: Basophils Percent Auto 0.1 % (0-2); Hematocrit 29.6 % (37-47); Hemoglobin 8.7 g/dl (12.0-16.0); Imm Gran Abs Auto 0.16 X10*3/uL (0.00-0.03); Lymphocytes Absolute Auto 0.8 X10*3/uL (1.2-4.9); Lymphocytes Percent Auto 5.2 % (20-40); Mean Corpuscular HGB Conc 29.4 g/dl (31.0-35.0); Mean Corpuscular Hemoglobin 24.6 pg (27.0-33.0); Mean Corpuscular Volume 83.6 fL (80-98); Mean Platelet Volume 9.2 fL (9.4-12.3); Monocytes Absolute Auto 0.5 X10*3/uL (0.1-1.2); Neutrophils Absolute Auto 14.6 X10*3/uL (2.0-8.3); Neutrophils Percent Auto 90.7 % (45-73); Platelet Count 378 X10*3/uL (160-400); Red Blood Count 3.54 X10*6/uL (4.20-5.50); Red Cell Distribution Width 15.4 % (11.0-16.0); SCAN SMEAR FLAG 1; White Blood Count 16.1 X10*3/uL (4.8-10.8)
[2020-09-11 16:58] LABS: MANUAL DIFF FLAG NO
[2020-09-11 17:01] LABS: INTERNATIONAL NORM RATIO 1.2 (0.9-1.1); Prothrombin Time 14.7 SEC (10.8-13.0)
[2020-09-11] MEDS: Piperacillin Sodium/Tazobactam 3.375 GM in 0.9 % Sodium Chloride 50 ML IV (17:11)
[2020-09-11 17:33] LABS: Lactic Acid 3.8 mmol/L (0.5-2.0)
[2020-09-11 17:35] LABS: Troponin-I High Sensitivity 5.1 ng/L (<3.5-17.0)
[2020-09-11 17:50] LABS: Alanine Aminotransferase 7 U/L (0-31); Albumin Level 2.4 g/dL (3.5-5.0); Alkaline Phosphatase 96 U/L (39-117); Aspartate Amino Transferase 18 U/L (5-31); Bilirubin Direct 0.2 mg/dL (0.0-0.5); Bilirubin Total 0.5 mg/dL (0.0-1.0); Blood Urea Nitrogen 115 mg/dL (9-16); Calcium 8.4 mg/dL (8.4-10.2); Creatinine Clr Calc Pharmacy 9.6; Estimated Glomerular Filt Rate 10; Glucose Random 89 mg/dL (60-115); Magnesium 2.2 mg/dL (1.6-2.6); Total Protein 6.7 g/dL (6.5-8.0)
[2020-09-11 17:51] LABS: Anion Gap 27 (12-20); Carbon Dioxide 14 mmol/L (22-29); Chloride 103 mmol/L (96-108); Potassium 7.2 mmol/l (3.3-5.1); Sodium 137 mmol/L (135-145)
--- NOTE | 2020-09-11 18:19 | CT_ITS ---
EXAMINATION: CT ABDOMEN AND PELVIS WITHOUT CONTRAST CLINICAL INFORMATION: Diffuse abdominal pain, sepsis, known pressure ulcer, buttock. COMPARISON: None TECHNIQUE: Multidetector volumetric imaging was performed from the superior aspect of the liver through the pubic symphysis. Sagittal and coronal reformatted images were obtained on the technologist's workstation. This CT examination was performed using dose optimization techniques as appropriate, variously including the following: *Automated exposure control. *Adjustment of mA and/or kV according to patient size (this includes techniques or standardized protocols for targeted exams where dose is matched to indication/reason for exam; i.e. extremities or head). *Use of iterative reconstruction technique. DLP: 349 mGy-cm FINDINGS: LUNG BASES: The visualized lung bases are unremarkable. LIVER, GALLBLADDER, AND BILIARY TREE: The liver is normal in size, shape, and attenuation. No focal hepatic lesion or biliary ductal dilatation is present. The gallbladder contains multiple small layering gallstones. No wall thickening or pericholecystic fluid. PANCREAS: Unremarkable. SPLEEN: Unremarkable. ADRENAL GLANDS: Unremarkable. KIDNEYS AND URETERS: There is fullness of the renal collecting system on the left but no clear obstructing lesion is seen. A mildly prominent iliac artery crosses the ureter which may be causing this. Some small punctate calcifications are present in the kidneys which could be vascular. BLADDER: Edwards catheter is present in a decompressed bladder. GASTROINTESTINAL TRACT: The rectum is significantly distended with stool. Some mild wall thickening is present in the rectum. No bowel obstruction is seen. The small and large bowel are unremarkable. The appendix is not not seen seen. ABDOMINAL WALL: No significant hernia is appreciated. LYMPH NODES: No retroperitoneal lymphadenopathy. VASCULAR: Calcific plaque present in the aorta and iliofemoral vessels. Stents appear to be present in the superficial femoral arteries. PELVIC VISCERA: A retroflexed uterus is present. An abnormal adnexal mass is not seen. No free intrapelvic fluid is present. OSSEOUS STRUCTURES: Degenerative changes are present in the spine with pedicular screws present at L5-S1. There is evidence of bony destructive changes in the right hemisacrum with associated soft tissue swelling and prominence. In addition, some small air collections are seen in this region bilaterally indicative of deep ulcers/fistula. CT/CT abdomen pelvis wo con IMPRESSION: 1. Changes in sacrum and buttocks consistent with ulcer with associated bony destructive changes in the right hemisacrum and some soft tissue swelling and air within the tissues suggesting osteomyelitis. 2. Cholelithiasis without cholecystitis. 3. Rectal distention with stool may be indicative of impaction. No evidence of bowel obstruction. 4. Mild fullness in the left renal collecting system could be secondary to crossing iliac vessel. No gross hydronephrosis.
[2020-09-11 18:22] LABS: Influenza A PCR NEGATIVE (Negative); Influenza B PCR NEGATIVE (Negative); Resp Syncy Virus RNA Qual PCR NEGATIVE (Negative); SARS COV2 PCR INHOUSE NEGATIVE (Negative)
[2020-09-11 18:36] LABS: Glucose Urine UA 100 MG/DL (NEG); Nitrite Urine POS (NEG); Specific Gravity - Urine 1.025 (1.005-1.025); Urine Blood 2+ (NEG); Urine Ketones 5 MG/DL (NEG); Urine Protein 2+ MG/DL (NEG-TRACE)
[2020-09-11 18:39] LABS: Appearance Urine TURBID; Color Urine YELLOW
[2020-09-11 18:40] LABS: Leukocyte Esterase Urine 3+ (NEG)
[2020-09-11 18:45] LABS: Bacteria Urine 4+ /LPF; WBC Urine TNTC /HPF (0-4)
[2020-09-11 18:53] LABS: Reflex Lactate? Lactic Acid Added
[2020-09-11] MEDS: Insulin Regular, Human 100 UNIT/ML 3 ML VIAL IVPUSH (19:10)
[2020-09-11] MEDS: Calcium Gluconate/NaCl,Iso-Osm 1 GM/50 ML PLAST..BAG IV (19:10)
[2020-09-11] MEDS: Sodium Polystyrene Sulfon/Sorb 15 GM/60 ML ORAL.SUSP 30 GM PO (19:10)
--- NOTE | 2020-09-11 20:12 | PC.NURSE ---
PT CLEANED OF STOOL, LINENS CHANGES. LARGE COCCYX WOUND NOTED, DRESSING SOILED AND SATURATED, REMOVED ATT, WILL FIND APPROPRIATE DRESSING TO BE APPLIED. PT OFFERS NO ACUTE COMPLAINTS ATT.
[2020-09-11] MEDS: Sodium Bicarbonate 8.4% 150 MEQ in Dextrose 5 % 850 ML 999 MEQ IV (20:30)
[2020-09-11 21:01] LABS: ~Lactic Acid-LAB USE ONLY 7.5 mmol/L (0.5-2.0)
[2020-09-11] MEDS: vancomycin HCL 750 MG in 0.9 % Sodium Chloride 250 ML 265 MG IV (21:57)
[2020-09-11 22:16] LABS: Troponin-I High Sensitivity 5.7 ng/L (<3.5-17.0)
[2020-09-11 22:18] LABS: Anion Gap 24 (12-20); Blood Urea Nitrogen 110 mg/dL (9-16); Calcium 7.9 mg/dL (8.4-10.2); Carbon Dioxide 19 mmol/L (22-29); Chloride 101 mmol/L (96-108); Creatinine Clr Calc Pharmacy 9.8; Estimated Glomerular Filt Rate 11; Glucose Random 278 mg/dL (60-115); Potassium 5.8 mmol/l (3.3-5.1); Sodium 138 mmol/L (135-145)
[2020-09-11 22:36] LABS: Reflex Lactate? 2 Y
[2020-09-11] MEDS: Sodium Bicarbonate 8.4% 150 MEQ in Dextrose 5 % 850 ML IV (22:36)
[2020-09-11 23:09] LABS: ~Lactic Acid-LAB USE ONLY 10.3 mmol/L (0.5-2.0)
[2020-09-12] VITALS (7 sets, daily range): BP systolic 102–137; BP diastolic 47–58; PULSE 90–118; RESP 16–18; TEMP 36.2–36.8; O2SAT 97–100; BMI 18.6
[2020-09-12] MEDS: cefTRIAXone sodium 1 GM in 0.9 % Sodium Chloride 50 ML IV (00:39)
[2020-09-12 03:15] LABS: C Reactive Protein 16.35 mg/dL (< or = 0.50)
[2020-09-12] MEDS: Heparin Sodium,Porcine 5,000 UNIT/ML VIAL 5000 UNIT SUBCUT ×2 (03:26→17:10)
[2020-09-12] MEDS: 0.9 % Sodium Chloride Flush 3 ML SYRINGE IVFLUSH (03:27)
[2020-09-12 03:34] LABS: Erythrocyte Sedimentation Rate 80 MM/HR (0-20)
[2020-09-12 04:37] LABS: Basophils Percent Auto 0.1 % (0-2); Hematocrit 27.2 % (37-47); Hemoglobin 8.1 g/dl (12.0-16.0); Imm Gran Abs Auto 0.13 X10*3/uL (0.00-0.03); Imm Gran Pct Auto 1.1 % (0.0-0.4); Lymphocytes Absolute Auto 0.7 X10*3/uL (1.2-4.9); Lymphocytes Percent Auto 5.6 % (20-40); MANUAL DIFF FLAG SCAN; Mean Corpuscular HGB Conc 29.8 g/dl (31.0-35.0); Mean Corpuscular Hemoglobin 24.8 pg (27.0-33.0); Mean Corpuscular Volume 83.4 fL (80-98); Mean Platelet Volume 8.9 fL (9.4-12.3); Monocytes Absolute Auto 0.3 X10*3/uL (0.1-1.2); Monocytes Percent Auto 2.1 % (2-11); Neutrophils Absolute Auto 11.1 X10*3/uL (2.0-8.3); Neutrophils Percent Auto 91.1 % (45-73); Platelet Count 321 X10*3/uL (160-400); Red Blood Count 3.26 X10*6/uL (4.20-5.50); Red Cell Distribution Width 15.6 % (11.0-16.0); SCAN SMEAR FLAG 1; White Blood Count 12.2 X10*3/uL (4.8-10.8)
[2020-09-12 04:57] LABS: Anion Gap 29 (12-20); Blood Urea Nitrogen 106 mg/dL (9-16); Calcium 7.7 mg/dL (8.4-10.2); Carbon Dioxide 18 mmol/L (22-29); Chloride 98 mmol/L (96-108); Creatinine Clr Calc Pharmacy 10.3; Estimated Glomerular Filt Rate 11; Glucose Random 166 mg/dL (60-115); Potassium 4.4 mmol/l (3.3-5.1); Sodium 141 mmol/L (135-145)
[2020-09-12 04:58] LABS: SLIDE REVIEW VERIFIED
--- NOTE | 2020-09-12 05:10 | PM.IMHP ---
History of Present Illness Date of Service: 09/11/20 Chief Complaint: Elevated WBC count, increased AMS This is a 80-year-old female with past medical history of type 2 diabetes, HLD, history of osteomyelitis, CAD, hypertension of the sacrum, anemia, who presents to the hospital from [facility] with increased WBC and increased altered mentation Patient is awake, alert, oriented to self and place, but is not sure while she was brought into the hospital. She is able to answer questions appropriately with yes or no, but is not a great historian. Therefore history is obtained mostly from ED physician. It appears that patient had lab drawn today [place] [address]. Per report the patient has been more confused from baseline. She does complain of abdominal discomfort which is generalized, some nausea with no vomiting, she denies any fever, no chills, no chest pain or shortness of breath. No diarrhea or constipation. Unable to time she has any urinary symptoms. Otherwise review of system negative as patient answers no to most of my questions. On arrival to the ED hemodynamically stable With no significant abnormal vitals. Labs are significant for WBC count of 12.2, hemoglobin of 8.1 which is around her baseline, BUN of 115, creatinine of 4.18, has now increased to 10.3, and C-reactive protein of 16.3 with an ESR of 80. UA that is positive for leukocyte Estrace, nitrates, WBC, COVID-19 negative, Abdominal/pelvic CT shows changes in the sacrum and buttocks consistent with ulcer with associated bony destruction changes in the right eugenia sacrum and some soft tissue swelling and air within the tissues suggestive of osteomyelitis Cholelithiasis without cholecystitis and rectal distention with stool History is obtained mostly from chart as patient is confused and is unable to give full history. Past medical history: Diabetes, hyperlipidemia, CAD, hypertension, osteomyelitis Surgical history: Unknown Family history: Unknown Social history: Comes from [facility], unclear if she ambulates, denies tobacco alcohol or illicit drugs Review of Systems Review of Systems: Yes all other systems are reviewed and are negative and Unobtainable due to mental condition Neurologic: Reports system reviewed and no additional complaints, except as documented [facility] Medical History Anemia Anxiety disorder Chondrocostal junction syndrome [tietze] COVID-19 Hyperlipidemia Lymphedema Osteomyelitis of sacrum Type 2 diabetes mellitus Surgical History H/O lumbosacral spine surgery Sacral decubitus ulcer, stage IV Social History Household Members: Other Alcohol intake: never Smoking Status: Never smoker Use of substances other than those prescribed or required for medical reasons: No Do you feel safe in your current relationship?: No Current Relationship Advance Directives: No Advance Directives Information Provided: No Do you have thoughts of harming others: None Do you have a plan to hurt others: No Plan Recently lost weight without trying: Unsure Meds Allergies Allergy/AdvReac Type Severity Reaction Status Date / Time clindamycin Allergy Rash Verified 09/12/20 03:19 Home Medications Medication Instructions Recorded Confirmed Type Lactobacillus rhamnosus GG 10 1 cap PO BID PRN 07/12/20 09/11/20 History billion cell capsule acetaminophen 325 mg capsule 650 mg PO Q6H PRN 07/12/20 09/11/20 History ammonium lactate 12 % lotion 1 applic TOPICAL DAILY 07/12/20 09/11/20 History bisacodyl 5 mg tablet,delayed 5 mg PO BEDTIME PRN 07/12/20 09/11/20 History release diclofenac sodium 1 % topical gel 4 g TOPICAL BID g 07/12/20 09/11/20 History metformin 1,000 mg tablet,extended 1,000 mg PO DAILY 07/12/20 09/11/20 History release 24hr metoprolol tartrate 50 mg tablet 50 mg PO BID 07/12/20 09/11/20 History oxycodone 10 mg tablet 10 mg PO TID PRN 07/12/20 09/11/20 History oxycodone 15 mg tablet,crush 15 mg PO Q12H 07/12/20 09/11/20 History resistant,extended release 12 hr pantoprazole 40 mg tablet,delayed 40 mg PO DAILY 07/12/20 09/11/20 History release polyethylene glycol 3350 17 gram 17 g PO DAILY 07/12/20 09/11/20 History oral powder packet sennosides 8.6 mg tablet 8.6 mg PO BEDTIME PRN 07/12/20 09/11/20 History Physical Exam Vital Signs and Narrative: Vital Signs: Last Vital Signs Temp 98.0 F 09/12/20 02:32 Pulse 92 09/12/20 02:32 Resp 18 09/12/20 02:32 BP 102/52 L 09/12/20 02:32 Pulse Ox 100 09/12/20 02:32 Body Mass Index 19.5 Const: Other: Alert and oriented, but slightly confused confused General: no acute distress Orientation/consciousness: oriented to person and oriented to place Eyes: General: appearance normal, both eyes and all related structures Pupils: Equal, round and reactive pupils present Resp: Effort & Inspection: normal respiratory effort and able to speak in complete sentences Auscultation: clear to auscultation bilaterally Cardio: Rate: regular rate Rhythm: regular rhythm GI: Palpation (GI): Soft to palpation Auscultation: normal bowel sounds Skin: Other: Large decubitus ulcer with exposed bone Neuro: General: oriented to person and oriented to place Cranial nerves: Yes Equal, round and reactive pupils present Cognition (Neuro): normal cognition Extrem: General: Yes no pedal edema Results Labs CBC and Chem 7: 09/12/20 04:08 09/12/20 04:08 Labs: Laboratory Results - last 24 hr 09/11/20 09/11/20 09/11/20 16:32 16:32 16:32 MCV MCH MCHC RDW Plt Count MPV Immature Gran % (Auto) Neut % (Auto) Lymph % (Auto) [place] % (Auto) Eos % (Auto) Baso % (Auto) Lymph # (Auto) [place] # (Auto) Eos # (Auto) Baso # (Auto) Abs Immat Gran (auto) Absolute Neuts (auto) Absolute Nucleated RBC Nucleated RBC % (auto) Smear Tech's Comments ESR PT INR Anion Gap 27 H Estim Creat Clear Calc 9.6 Estimated GFR 10 Random Glucose 89 Lactic Acid 3.8 H* Lactic Acid Fup @ 2Hr Lactic Acid Fup @ 4Hr Calcium 8.4 Magnesium 2.2 Total Bilirubin 0.5 Direct Bilirubin 0.2 AST 18 ALT 7 Alkaline Phosphatase 96 Troponin I High Sens 5.1 C-Reactive Protein Total Protein 6.7 Albumin 2.4 L Urine Color Urine Appearance Urine pH Ur Specific Center Urine Protein Urine Glucose (UA) Urine Ketones Urine Blood Urine Nitrite Ur Leukocyte Esterase Urine RBC Urine WBC Ur Squamous Epith Cells Urine Bacteria Coronavirus (PCR) Influenza Type A (PCR) Influenza Type B (PCR) RSV RNA Qual (PCR) 09/11/20 09/11/20 09/11/20 16:32 16:33 16:33 MCV 83.6 MCH 24.6 L MCHC 29.4 L RDW 15.4 Plt Count 378 MPV 9.2 L Immature Gran % (Auto) 1.0 H Neut % (Auto) 90.7 H Lymph % (Auto) 5.2 L [place] % (Auto) 3.0 Eos % (Auto) 0.0 Baso % (Auto) 0.1 Lymph # (Auto) 0.8 L [place] # (Auto) 0.5 Eos # (Auto) 0.0 Baso # (Auto) 0.0 Abs Immat Gran (auto) 0.16 H Absolute Neuts (auto) 14.6 H Absolute Nucleated RBC 0.000 Nucleated RBC % (auto) 0.0 Smear Tech's Comments ESR PT 14.7 H INR 1.2 H Anion Gap Estim Creat Clear Calc Estimated GFR Random Glucose Lactic Acid Lactic Acid Fup @ 2Hr Lactic Acid Fup @ 4Hr Calcium Magnesium Total Bilirubin Direct Bilirubin AST ALT Alkaline Phosphatase Troponin I High Sens C-Reactive Protein Total Protein Albumin Urine Color Urine Appearance Urine pH Ur Specific Center Urine Protein Urine Glucose (UA) Urine Ketones Urine Blood Urine Nitrite Ur Leukocyte Esterase Urine RBC Urine WBC Ur Squamous Epith Cells Urine Bacteria Coronavirus (PCR) NEGATIVE Influenza Type A (PCR) NEGATIVE Influenza Type B (PCR) NEGATIVE RSV RNA Qual (PCR) NEGATIVE 09/11/20 09/11/20 09/11/20 18:26 20:28 21:34 MCV MCH MCHC RDW Plt Count MPV Immature Gran % (Auto) Neut % (Auto) Lymph % (Auto) [place] % (Auto) Eos % (Auto) Baso % (Auto) Lymph # (Auto) [place] # (Auto) Eos # (Auto) Baso # (Auto) Abs Immat Gran (auto) Absolute Neuts (auto) Absolute Nucleated RBC Nucleated RBC % (auto) Smear Tech's Comments ESR PT INR Anion Gap 24 H Estim Creat Clear Calc 9.8 Estimated GFR 11 Random Glucose 278 H D Lactic Acid Lactic Acid Fup @ 2Hr 7.5 H* Lactic Acid Fup @ 4Hr Calcium 7.9 L Magnesium Total Bilirubin Direct Bilirubin AST ALT Alkaline Phosphatase Troponin I High Sens C-Reactive Protein Total Protein Albumin Urine Color YELLOW Urine Appearance TURBID Urine pH 7.0 Ur Specific Center 1.025 Urine Protein 2+ H Urine Glucose (UA) 100 H Urine Ketones 5 Urine Blood 2+ H Urine Nitrite POS H Ur Leukocyte Esterase 3+ H Urine RBC 10-14 H Urine WBC TNTC H Ur Squamous Epith Cells NONE Urine Bacteria 4+ Coronavirus (PCR) Influenza Type A (PCR) Influenza Type B (PCR) RSV RNA Qual (PCR) 09/11/20 09/11/20 09/12/20 21:34 22:43 02:50 MCV MCH MCHC RDW Plt Count MPV Immature Gran % (Auto) Neut % (Auto) Lymph % (Auto) [place] % (Auto) Eos % (Auto) Baso % (Auto) Lymph # (Auto) [place] # (Auto) Eos # (Auto) Baso # (Auto) Abs Immat Gran (auto) Absolute Neuts (auto) Absolute Nucleated RBC Nucleated RBC % (auto) Smear Tech's Comments ESR 80 H PT INR Anion Gap Estim Creat Clear Calc Estimated GFR Random Glucose Lactic Acid Lactic Acid Fup @ 2Hr Lactic Acid Fup @ 4Hr 10.3 H* Calcium Magnesium Total Bilirubin Direct Bilirubin AST ALT Alkaline Phosphatase Troponin I High Sens 5.7 C-Reactive Protein Total Protein Albumin Urine Color Urine Appearance Urine pH Ur Specific Center Urine Protein Urine Glucose (UA) Urine Ketones Urine Blood Urine Nitrite Ur Leukocyte Esterase Urine RBC Urine WBC Ur Squamous Epith Cells Urine Bacteria Coronavirus (PCR) Influenza Type A (PCR) Influenza Type B (PCR) RSV RNA Qual (PCR) 09/12/20 09/12/20 09/12/20 02:50 04:08 04:08 MCV 83.4 MCH 24.8 L MCHC 29.8 L RDW 15.6 Plt Count 321 MPV 8.9 L Immature Gran % (Auto) 1.1 H Neut % (Auto) 91.1 H Lymph % (Auto) 5.6 L [place] % (Auto) 2.1 Eos % (Auto) 0.0 Baso % (Auto) 0.1 Lymph # (Auto) 0.7 L [place] # (Auto) 0.3 Eos # (Auto) 0.0 Baso # (Auto) 0.0 Abs Immat Gran (auto) 0.13 H Absolute Neuts (auto) 11.1 H Absolute Nucleated RBC 0.000 Nucleated RBC % (auto) 0.0 Smear Tech's Comments VERIFIED ESR PT INR Anion Gap 29 H Estim Creat Clear Calc 10.3 Estimated GFR 11 Random Glucose 166 H D Lactic Acid Lactic Acid Fup @ 2Hr Lactic Acid Fup @ 4Hr Calcium 7.7 L Magnesium Total Bilirubin Direct Bilirubin AST ALT Alkaline Phosphatase Troponin I High Sens C-Reactive Protein 16.35 H Total Protein Albumin Urine Color Urine Appearance Urine pH Ur Specific Center Urine Protein Urine Glucose (UA) Urine Ketones Urine Blood Urine Nitrite Ur Leukocyte Esterase Urine RBC Urine WBC Ur Squamous Epith Cells Urine Bacteria Coronavirus (PCR) Influenza Type A (PCR) Influenza Type B (PCR) RSV RNA Qual (PCR) Imaging Radiologist's Impressions: Impressions Chest X-Ray 09/11/20 15:39 IMPRESSION: Right lung disease. Extremely limited pelvic view as described. Pelvis X-Ray 09/11/20 16:04 IMPRESSION: Right lung disease. Extremely limited pelvic view as described. Abdomen/Pelvis CT 09/11/20 18:19 IMPRESSION: 1. Changes in sacrum and buttocks consistent with ulcer with associated bony destructive changes in the right hemisacrum and some soft tissue swelling and air within the tissues suggesting osteomyelitis. 2. Cholelithiasis without cholecystitis. 3. Rectal distention with stool may be indicative of impaction. No evidence of bowel obstruction. 4. Mild fullness in the left renal collecting system could be secondary to crossing iliac vessel. No gross hydronephrosis. Assessment and Plan (1) Sepsis: Qualifiers: Acute renal failure type: with other specified pathological lesion Sepsis acute organ dysfunction status: with acute organ dysfunction Sepsis type: sepsis due to unspecified organism Severe sepsis acute organ dysfunction type: acute renal failure Severe sepsis shock status: with septic shock Qualified Code(s): A41.9 - Sepsis, unspecified organism; R65.21 - Severe sepsis with septic shock; N17.8 - Other acute kidney failure Status: Acute (2) Acute UTI: Status: Acute (3) Anemia: Qualifiers: Anemia type: unspecified type Qualified Code(s): D64.9 - Anemia, unspecified Status: Acute (4) Acute renal failure: Qualifiers: Acute renal failure type: unspecified Qualified Code(s): N17.9 - Acute kidney failure, unspecified Status: Acute (5) Acute hyperkalemia: Status: Acute (6) Sacral decubitus ulcer, stage IV: Status: Acute (7) Lactic acidosis: Status: Acute 80-year-old female with both medical history as above who presents to the hospital with increased leukocytosis as well as altered mentation # encephalopathy - most likely metabolic secondary to acute infection, PRIYANKA -patient is oriented to self and place, but is slightly confused otherwise, answers questions appropriately Plan: - treat underlying etiology such as PRIYANKA, infection, lactic acidosis - follow mentation # sepsis - secondary to UTI/osteomyelitis - patient has a urinary tract infection as well as a stage IV decubitus ulcer that is concerning for osteomyelitis Plan: - broad-spectrum antibiotics - consult infectious disease - follow blood cultures, and continue IV fluids # stage IV decubitus ulcer - concerning for osteomyelitis although patient did have osteomyelitis in that region in January - acute versus chronic osteomyelitis - both ESR and CRP are elevated - CT of the pelvis showed gas and concern for osteomyelitis Plan: - broad-spectrum antibiotics - will consult ID - follow cultures - hold off on ordering MRI pending ID consultation # UTI - positive UA, patient denies symptoms - will treat with antibiotics given her confusion, sepsis - will follow urine cultures # lactic acidosis - most likely secondary to infection - will start IV fluids - will follow to trend # PRIYANKA - secondary to infection/dehydration - will start IV fluids - follow BMP # leukocytosis - secondary to above - follow CBC DVT prophylaxis: Heparin subQ
[2020-09-12] MEDS: Sodium Bicarbonate 8.4% 150 MEQ in Dextrose 5 % 850 ML IV ×2 (06:01→13:00)
[2020-09-12 07:22] LABS: Glucose, Whole Blood 140 mg/dL (60-115)
[2020-09-12 07:45] LABS: Lactic Acid 14.3 mmol/L (0.5-2.0)
[2020-09-12 08:12] LABS: Reflex Lactate? Lactic Acid Added
[2020-09-12] MEDS: Piperacillin Sodium/Tazobactam 2.25 GM in 0.9 % Sodium Chloride 50 ML IV (09:03)
[2020-09-12] MEDS: polyethylene glycoL 3350 17 GM POWD.PACK PO (09:03)
[2020-09-12 09:11] LABS: Vancomycin Random 11.4 mcg/mL (15-20)
[2020-09-12 09:26] LABS: ~Lactic Acid-LAB USE ONLY 13.8 mmol/L (0.5-2.0)
--- NOTE | 2020-09-12 10:09 | MHC.CM.PN ---
spoke wi th pts who explins that pt is from [facility] in [place] where she has been since december ,pt has been private pay plan is for pt to return to [facility] whenn dcd
--- NOTE | 2020-09-12 10:20 | P.CDIC_ITS ---
CDI Concurrent Query Service Date: 09/12/20 Documentation Clarification: Please clarify if you are treating a proba ble/suspected/likely or confirmed: Moderate Protein Calorie Malnutrition Severe Protein Calorie Malnutrition Provider Response: Mild Protein-Calorie Malnutrition PLEASE DO NOT DELETE/MODIFY EXISTING CONTENT Additional information is needed in order to code to the highest accuracy and appropriate Severity of Illness (SOI). Please clarify the information noted below in your progress notes and discharge summary. Risk Factors/Clinical Indicators/Treatments 80 year old female admitted with Sepsis, PRIYANKA, UTI, Anemia, Acute Hyperkalemia, Sacral Decubitus stage 4, Metabolic Encephalopathy, Osteomyelitis HT 5'6 WT 52.2 kg BMI 18.6 Total Protein 6.7 Albumin 2.4 No Nutritional Assessment in EMR CDS: Jess Thomson RN Contact Number: [phone] Please Review the information above and exercise your independent professional judgment in responding to the query. If you concur, pleas document in the PROGRESS NOTES and DISCHARGE SUMMARY. If you do not agree with the query, please document in the query above. THIS QUERY IS PART OF THE PERMANENT MEDICAL RECORD
[2020-09-12 10:30] LABS: Reflex Lactate? 2 Y
[2020-09-12 12:05] LABS: ~Lactic Acid-LAB USE ONLY 12.7 mmol/L (0.5-2.0)
--- NOTE | 2020-09-12 12:32 | MHC.CLN ---
PT IS SEVERELY MALNOURISHED RECOMMEND STARTING ENSURE BID AND EMPERATRIZ TO INCREASE KCALS AND PROMOTE WOUND HEALING SEE ALSO CLINICAL NUTRITION ASSESSMENT MONITOR PO INTAKE, WEIGHTS AND WOUND HEALING
[2020-09-12] MEDS: 0.9 % Sodium Chloride 1,000 ML 999 ML IVCONT (13:00)
[2020-09-12] MEDS: Doxycycline Hyclate 100 MG in 0.9 % Sodium Chloride 250 ML 166.67 MG IV (13:15)
--- NOTE | 2020-09-12 13:32 | P.CNID_ITS ---
History of Present Illness Data of Consult Service Date: 09/12/20 Requesting physician: Iain Rios Primary Care Provider: Unknown Physician HPI Reason for consult: leukocytosis She was sent to hospital because of leukocytosis of 16,000. She was reportedly more confused at times There was reported odor and discharge from sacral area. Prior MRSA wound There is Cdiff seen in February and COVID in January Review of Systems Review of Systems: Yes Unobtainable due to mental condition Constitutional: Constitutional: Denies headache(s) and Denies weakness ENT: Denies dizziness and Denies headache(s) Musculoskeletal: Musculoskeletal: Denies numbness and Denies tingling Neurologic: Reports system reviewed and no additional complaints, except as documented, Denies Abnormal speech present, Denies dizziness, Denies headache(s), Denies numbness, Denies tingling and Denies weakness PMFSH Past Medical History Medical History Anemia Anxiety disorder Chondrocostal junction syndrome [tietze] COVID-19 Hyperlipidemia Lymphedema Osteomyelitis of sacrum Type 2 diabetes mellitus Family History Family history: reviewed and not pertinent Surgical History Surgical History H/O lumbosacral spine surgery Sacral decubitus ulcer, stage IV Social History Social History Household Members: Other Alcohol intake: never Smoking Status: Never smoker Use of substances other than those prescribed or required for medical reasons: No Do you feel safe in your current relationship?: No Current Relationship Advance Directives: No Advance Directives Information Provided: No Do you have thoughts of harming others: None Do you have a plan to hurt others: No Plan Recently lost weight without trying: Unsure service: No Meds Allergies Allergy/AdvReac Type Severity Reaction Status Date / Time clindamycin Allergy Rash Verified 09/12/20 03:19 Home Medications Medication Instructions Recorded Confirmed Type Lactobacillus rhamnosus GG 10 1 cap PO BID PRN 07/12/20 09/11/20 History billion cell capsule acetaminophen 325 mg capsule 650 mg PO Q6H PRN 07/12/20 09/11/20 History ammonium lactate 12 % lotion 1 applic TOPICAL DAILY 07/12/20 09/11/20 History bisacodyl 5 mg tablet,delayed 5 mg PO BEDTIME PRN 07/12/20 09/11/20 History release diclofenac sodium 1 % topical gel 4 g TOPICAL BID g 07/12/20 09/11/20 History metformin 1,000 mg tablet,extended 1,000 mg PO DAILY 07/12/20 09/11/20 History release 24hr metoprolol tartrate 50 mg tablet 50 mg PO BID 07/12/20 09/11/20 History oxycodone 10 mg tablet 10 mg PO TID PRN 07/12/20 09/11/20 History oxycodone 15 mg tablet,crush 15 mg PO Q12H 07/12/20 09/11/20 History resistant,extended release 12 hr pantoprazole 40 mg tablet,delayed 40 mg PO DAILY 07/12/20 09/11/20 History release polyethylene glycol 3350 17 gram 17 g PO DAILY 07/12/20 09/11/20 History oral powder packet sennosides 8.6 mg tablet 8.6 mg PO BEDTIME PRN 07/12/20 09/11/20 History Physical Exam Vital Signs: Vital Signs: Last Vital Signs Temp 97.9 F 09/12/20 11:37 Pulse 118 H 09/12/20 11:37 Resp 18 09/12/20 11:37 BP 114/55 L 09/12/20 11:37 Pulse Ox 97 09/12/20 11:37 Body Mass Index 18.6 Const: General: cooperative HENMT: Head: Yes normal to inspection Mouth: Normal oral and palatal mucosa present Resp: Effort & Inspection: normal respiratory effort Cardio: Rate: regular rate Rhythm: regular rhythm GI: Inspection: Yes normal to inspection Back/Spine/Pelvis: Other: clear sacral area with open wound there is no purulence Neuro: Speech: No Abnormal speech present Assessment and Plan (1) Leukocytosis: Qualifiers: Leukocytosis type: unspecified Qualified Code(s): D72.829 - Elevated white blood cell count, unspecified Problem details: She has long standing osteomyelitis which is chronic of sacrum There is concern over MRSA and other organisms She has had Cdiff in past and COVID in past Stool looks formed today She may have viral syndrome causing some GI distress Possibly osteomyelitic flare Status: Acute Stop broadspectrum antibiotics Continue Doxycycline for now Wound Care followup Check Cdiff again if diarrhea Results Labs CBC & Chem 7: 09/12/20 04:08 09/12/20 04:08 Labs: Short CBC 09/11/20 09/12/20 Range/Units 16:33 04:08 WBC 16.1 H 12.2 H (4.8-10.8) X10*3/uL Hgb 8.7 L 8.1 L (12.0-16.0) g/dl Hct 29.6 L 27.2 L (37-47) % Plt Count 378 321 (160-400) X10*3/uL BMP 09/11/20 09/11/20 09/12/20 16:32 21:34 04:08 Sodium 137 138 141 Potassium 7.2 H* 5.8 H 4.4 D Chloride 103 101 98 Carbon Dioxide 14 L 19 L 18 L BUN 115 H* 110 H* 106 H* Creatinine 4.18 H* 4.09 H* 3.91 H Calcium 8.4 7.9 L 7.7 L Liver Function 09/11/20 Range/Units 16:32 Total Bilirubin 0.5 (0.0-1.0) mg/dL Direct Bilirubin 0.2 (0.0-0.5) mg/dL AST 18 (5-31) U/L ALT 7 (0-31) U/L Alkaline Phosphatase 96 (39-117) U/L Albumin 2.4 L (3.5-5.0) g/dL Urine 09/11/20 Range/Units 18:26 Urine Color YELLOW Urine Appearance TURBID Urine pH 7.0 (5.0-8.0) Ur Specific [place] 1.025 (1.005-1.025) Urine Protein 2+ H (NEG-TRACE) MG/DL Urine Glucose (UA) 100 H (NEG) MG/DL Microbiology Microbiology Results: Microbiology 09/11/20 16:32 Blood - Venous Blood Culture - Preliminary 09/11/20 17:10 Blood - Venous Blood Culture - Preliminary 09/11/20 18:42 Urine clean catch - Clean Catch Midstream Urine Culture - Preliminary Proteus species
--- NOTE | 2020-09-12 15:02 | P.PNIM_ITS ---
Subjective Subjective Date of Service: 09/12/20 Interval History: the patient was seen and evaluated this morning Laying in bed, feels lethargic and mildly confused Denies any fever, chills or shortness of breath No reported other overnight events. Not making much of urine Has significantly elevated lactic acid levels Systemic review: No fever, chills but reports significant weakness No chest pain, palpitation No shortness of breath or coughing No abdominal pain, nausea or vomiting No urinary symptoms No any rash or wounds Physical Exam Vital Signs: Vital Signs: Last Vital Signs Temp 97.9 F 09/12/20 11:37 Pulse 118 H 09/12/20 11:37 Resp 18 09/12/20 11:37 BP 114/55 L 09/12/20 11:37 Pulse Ox 97 09/12/20 11:37 Body Mass Index 18.6 Constitutional : Alert, oriented to self time and place, looks weak and tired Neck : Normal inspection, Supple Cardiovascular : RRR, S1 S2, no lower extremity edema Respiratory : Fair bilateral air entry, no crackles, wheezes or rhonchi Gastrointestinal: soft, lax, Normal bowel sounds, Non tender Skin : Warm/Dry, sacral ulcer Neurological : Alert & oriented x3, No focal deficit Objective Data Current Medications Generic Name Dose Route Start Last Admin Trade Name Freq PRN Reason Stop Dose Admin Acetaminophen 650 mg 09/12/20 02:22 Acetaminophen 325 Mg Tablet PO Q6H PRN Pain, Mild (Pain Scale 1-3) Docusate Sodium 100 mg 09/12/20 02:22 Docusate Sodium 100 Mg Capsule PO DAILY PRN Constipation Heparin Sodium (Porcine) 5,000 unit 09/12/20 04:00 09/12/20 03:26 Heparin Sodium,Porcine 5,000 Unit/Ml Vial SUBCUT 5,000 unit Q12H MARQUES Administration Sodium Bicarbonate 150 meq/ 1,000 mls @ 150 mls/hr 09/11/20 21:00 09/12/20 13:00 Dextrose IV 150 mls/hr .Q6H40M MARQUES Administration Doxycycline Hyclate 100 mg/ 250 mls @ 166.67 mls/hr 09/12/20 12:00 09/12/20 13:15 Sodium Chloride IV 166.67 mls/hr Q12H MARQUES Administration Sodium Chloride 1,000 mls @ 100 mls/hr 09/12/20 14:15 Ns IVCONT .Q10H [facility] Insulin Human Lispro 0 unit 09/12/20 07:30 09/12/20 13:02 Insulin Lispro 100 Unit/Ml 3 Ml Vial SUBCUT Not Given QIDACHS [facility] Protocol Magnesium Hydroxide 15 ml 09/12/20 05:17 Milk Of Magnesia 30 Ml Oral.Susp PO BEDTIME PRN Constipation Ondansetron HCl 4 mg 09/12/20 02:22 Ondansetron Hcl 4 Mg/2 Ml Vial IVPUSH Q8H PRN Nausea and Vomiting Pharmacy Consult 1 each 09/11/20 19:23 Consult Rx Perform Med Rec MISCELLANE ONCE PRN Consult order Pharmacy Consult 1 each 09/12/20 00:47 Consult Rx Vancomycin Dosing MISCELLANE DAILY PRN Consult order Polyethylene Glycol 17 gm 09/12/20 09:00 09/12/20 09:03 Polyethylene Glycol 3350 17 Gm Powd.Pack PO 17 gm DAILY MARQUES Administration Sodium Chloride 3 ml 09/12/20 02:22 09/12/20 09:03 0.9 % Sodium Chloride Flush 3 Ml Syringe IVFLUSH Not Given QSHIFT [facility] Labs CBC & Chem 7: 09/12/20 04:08 09/12/20 04:08 Microbiology Microbiology Results: Microbiology 09/11/20 16:32 Blood - Venous Blood Culture - Preliminary 09/11/20 17:10 Blood - Venous Blood Culture - Preliminary 09/11/20 18:42 Urine clean catch - Clean Catch Midstream Urine Culture - Preliminary Proteus species Assessment and Plan (1) Acute UTI: Status: Acute (2) Severe sepsis: Status: Acute (3) Lactic acidosis: Status: Acute (4) Osteomyelitis of sacrum: Status: Acute (5) Acute renal failure: Status: Acute Assessment and Plan: 80-year-old female with both medical history as above who presents to the hospital with increased leukocytosis as well as altered mentation Acute metabolic encephalopathy secondary to sepsis, PRIYANKA Treat underlying problems Avoid medications that might worsen her mental status Severe sepsis Likely secondary to UTI/sacral osteomyelitis Continue doxycycline for now DC vancomycin for acute renal failure Zosyn discontinued by ID Id input appreciated CT of the pelvis showed gas and concern for osteomyelitis To get surgery evaluation UTI Urine growing Proteus Pending urine cultures On IV antibiotics, consider ceftriaxone lactic acidosis Secondary to sepsis and using metformin To give IV fluid boluses Acute renal failure Likely a result of sepsis, dehydration Continue IV fluid Pending nephro evaluation Monitor intake and output DVT prophylaxis: Heparin subQ
--- NOTE | 2020-09-12 15:11 | P.PNNP_ITS ---
Subjective Subjective Date of Service: 09/12/20 Interval history: Patient seen and examined consult dictated Physical Exam Vital Signs: Vital Signs: Last Vital Signs Temp 97.9 F 09/12/20 11:37 Pulse 118 H 09/12/20 11:37 Resp 18 09/12/20 11:37 BP 114/55 L 09/12/20 11:37 Pulse Ox 97 09/12/20 11:37 Body Mass Index 18.6 Objective Data Labs CBC & Chem 7: 09/12/20 04:08 09/12/20 04:08 Labs: Laboratory Results - last 24 hr 09/11/20 09/11/20 09/11/20 16:32 16:32 16:32 WBC RBC Hgb Hct MCV MCH MCHC RDW Plt Count MPV Immature Gran % (Auto) Neut % (Auto) Lymph % (Auto) [place] % (Auto) Eos % (Auto) Baso % (Auto) Lymph # (Auto) [place] # (Auto) Eos # (Auto) Baso # (Auto) Abs Immat Gran (auto) Absolute Neuts (auto) Absolute Nucleated RBC Nucleated RBC % (auto) Smear Tech's Comments ESR PT INR Sodium 137 Potassium 7.2 H* Chloride 103 Carbon Dioxide 14 L Anion Gap 27 H BUN 115 H* Creatinine 4.18 H* Estim Creat Clear Calc 9.6 Estimated GFR 10 POC Glucose Random Glucose 89 Lactic Acid 3.8 H* Lactic Acid Fup @ 2Hr Lactic Acid Fup @ 4Hr Calcium 8.4 Magnesium 2.2 Total Bilirubin 0.5 Direct Bilirubin 0.2 AST 18 ALT 7 Alkaline Phosphatase 96 Troponin I High Sens 5.1 C-Reactive Protein Total Protein 6.7 Albumin 2.4 L Urine Color Urine Appearance Urine pH Ur Specific [place] Urine Protein Urine Glucose (UA) Urine Ketones Urine Blood Urine Nitrite Ur Leukocyte Esterase Urine RBC Urine WBC Ur Squamous Epith Cells Urine Bacteria Random Vancomycin Coronavirus (PCR) Influenza Type A (PCR) Influenza Type B (PCR) RSV RNA Qual (PCR) 09/11/20 09/11/20 09/11/20 16:32 16:33 16:33 WBC 16.1 H RBC 3.54 L Hgb 8.7 L Hct 29.6 L MCV 83.6 MCH 24.6 L MCHC 29.4 L RDW 15.4 Plt Count 378 MPV 9.2 L Immature Gran % (Auto) 1.0 H Neut % (Auto) 90.7 H Lymph % (Auto) 5.2 L [place] % (Auto) 3.0 Eos % (Auto) 0.0 Baso % (Auto) 0.1 Lymph # (Auto) 0.8 L [place] # (Auto) 0.5 Eos # (Auto) 0.0 Baso # (Auto) 0.0 Abs Immat Gran (auto) 0.16 H Absolute Neuts (auto) 14.6 H Absolute Nucleated RBC 0.000 Nucleated RBC % (auto) 0.0 Smear Tech's Comments ESR PT 14.7 H INR 1.2 H Sodium Potassium Chloride Carbon Dioxide Anion Gap BUN Creatinine Estim Creat Clear Calc Estimated GFR POC Glucose Random Glucose Lactic Acid Lactic Acid Fup @ 2Hr Lactic Acid Fup @ 4Hr Calcium Magnesium Total Bilirubin Direct Bilirubin AST ALT Alkaline Phosphatase Troponin I High Sens C-Reactive Protein Total Protein Albumin Urine Color Urine Appearance Urine pH Ur Specific [place] Urine Protein Urine Glucose (UA) Urine Ketones Urine Blood Urine Nitrite Ur Leukocyte Esterase Urine RBC Urine WBC Ur Squamous Epith Cells Urine Bacteria Random Vancomycin Coronavirus (PCR) NEGATIVE Influenza Type A (PCR) NEGATIVE Influenza Type B (PCR) NEGATIVE RSV RNA Qual (PCR) NEGATIVE 09/11/20 09/11/20 09/11/20 18:26 20:28 21:34 WBC RBC Hgb Hct MCV MCH MCHC RDW Plt Count MPV Immature Gran % (Auto) Neut % (Auto) Lymph % (Auto) [place] % (Auto) Eos % (Auto) Baso % (Auto) Lymph # (Auto) [place] # (Auto) Eos # (Auto) Baso # (Auto) Abs Immat Gran (auto) Absolute Neuts (auto) Absolute Nucleated RBC Nucleated RBC % (auto) Smear Tech's Comments ESR PT INR Sodium 138 Potassium 5.8 H Chloride 101 Carbon Dioxide 19 L Anion Gap 24 H BUN 110 H* Creatinine 4.09 H* Estim Creat Clear Calc 9.8 Estimated GFR 11 POC Glucose Random Glucose 278 H D Lactic Acid Lactic Acid Fup @ 2Hr 7.5 H* Lactic Acid Fup @ 4Hr Calcium 7.9 L Magnesium Total Bilirubin Direct Bilirubin AST ALT Alkaline Phosphatase Troponin I High Sens C-Reactive Protein Total Protein Albumin Urine Color YELLOW Urine Appearance TURBID Urine pH 7.0 Ur Specific [place] 1.025 Urine Protein 2+ H Urine Glucose (UA) 100 H Urine Ketones 5 Urine Blood 2+ H Urine Nitrite POS H Ur Leukocyte Esterase 3+ H Urine RBC 10-14 H Urine WBC TNTC H Ur Squamous Epith Cells NONE Urine Bacteria 4+ Random Vancomycin Coronavirus (PCR) Influenza Type A (PCR) Influenza Type B (PCR) RSV RNA Qual (PCR) 09/11/20 09/11/20 09/12/20 21:34 22:43 02:50 WBC RBC Hgb Hct MCV MCH MCHC RDW Plt Count MPV Immature Gran % (Auto) Neut % (Auto) Lymph % (Auto) [place] % (Auto) Eos % (Auto) Baso % (Auto) Lymph # (Auto) [place] # (Auto) Eos # (Auto) Baso # (Auto) Abs Immat Gran (auto) Absolute Neuts (auto) Absolute Nucleated RBC Nucleated RBC % (auto) Smear Tech's Comments ESR 80 H PT INR Sodium Potassium Chloride Carbon Dioxide Anion Gap BUN Creatinine Estim Creat Clear Calc Estimated GFR POC Glucose Random Glucose Lactic Acid Lactic Acid Fup @ 2Hr Lactic Acid Fup @ 4Hr 10.3 H* Calcium Magnesium Total Bilirubin Direct Bilirubin AST ALT Alkaline Phosphatase Troponin I High Sens 5.7 C-Reactive Protein Total Protein Albumin Urine Color Urine Appearance Urine pH Ur Specific [place] Urine Protein Urine Glucose (UA) Urine Ketones Urine Blood Urine Nitrite Ur Leukocyte Esterase Urine RBC Urine WBC Ur Squamous Epith Cells Urine Bacteria Random Vancomycin Coronavirus (PCR) Influenza Type A (PCR) Influenza Type B (PCR) RSV RNA Qual (PCR) 09/12/20 09/12/20 09/12/20 02:50 04:08 04:08 WBC 12.2 H RBC 3.26 L Hgb 8.1 L Hct 27.2 L MCV 83.4 MCH 24.8 L MCHC 29.8 L RDW 15.6 Plt Count 321 MPV 8.9 L Immature Gran % (Auto) 1.1 H Neut % (Auto) 91.1 H Lymph % (Auto) 5.6 L [place] % (Auto) 2.1 Eos % (Auto) 0.0 Baso % (Auto) 0.1 Lymph # (Auto) 0.7 L [place] # (Auto) 0.3 Eos # (Auto) 0.0 Baso # (Auto) 0.0 Abs Immat Gran (auto) 0.13 H Absolute Neuts (auto) 11.1 H Absolute Nucleated RBC 0.000 Nucleated RBC % (auto) 0.0 Smear Tech's Comments VERIFIED ESR PT INR Sodium 141 Potassium 4.4 D Chloride 98 Carbon Dioxide 18 L Anion Gap 29 H BUN 106 H* Creatinine 3.91 H Estim Creat Clear Calc 10.3 Estimated GFR 11 POC Glucose Random Glucose 166 H D Lactic Acid Lactic Acid Fup @ 2Hr Lactic Acid Fup @ 4Hr Calcium 7.7 L Magnesium Total Bilirubin Direct Bilirubin AST ALT Alkaline Phosphatase Troponin I High Sens C-Reactive Protein 16.35 H Total Protein Albumin Urine Color Urine Appearance Urine pH Ur Specific [place] Urine Protein Urine Glucose (UA) Urine Ketones Urine Blood Urine Nitrite Ur Leukocyte Esterase Urine RBC Urine WBC Ur Squamous Epith Cells Urine Bacteria Random Vancomycin Coronavirus (PCR) Influenza Type A (PCR) Influenza Type B (PCR) RSV RNA Qual (PCR) 09/12/20 09/12/20 09/12/20 05:47 07:19 08:03 WBC RBC Hgb Hct MCV MCH MCHC RDW Plt Count MPV Immature Gran % (Auto) Neut % (Auto) Lymph % (Auto) [place] % (Auto) Eos % (Auto) Baso % (Auto) Lymph # (Auto) [place] # (Auto) Eos # (Auto) Baso # (Auto) Abs Immat Gran (auto) Absolute Neuts (auto) Absolute Nucleated RBC Nucleated RBC % (auto) Smear Tech's Comments ESR PT INR Sodium Potassium Chloride Carbon Dioxide Anion Gap BUN Creatinine Estim Creat Clear Calc Estimated GFR POC Glucose 140 H Random Glucose Lactic Acid 14.3 H* Lactic Acid Fup @ 2Hr Lactic Acid Fup @ 4Hr Calcium Magnesium Total Bilirubin Direct Bilirubin AST ALT Alkaline Phosphatase Troponin I High Sens C-Reactive Protein Total Protein Albumin Urine Color Urine Appearance Urine pH Ur Specific [place] Urine Protein Urine Glucose (UA) Urine Ketones Urine Blood Urine Nitrite Ur Leukocyte Esterase Urine RBC Urine WBC Ur Squamous Epith Cells Urine Bacteria Random Vancomycin 11.4 L Coronavirus (PCR) Influenza Type A (PCR) Influenza Type B (PCR) RSV RNA Qual (PCR) 09/12/20 09/12/20 08:17 10:58 WBC RBC Hgb Hct MCV MCH MCHC RDW Plt Count MPV Immature Gran % (Auto) Neut % (Auto) Lymph % (Auto) [place] % (Auto) Eos % (Auto) Baso % (Auto) Lymph # (Auto) [place] # (Auto) Eos # (Auto) Baso # (Auto) Abs Immat Gran (auto) Absolute Neuts (auto) Absolute Nucleated RBC Nucleated RBC % (auto) Smear Tech's Comments ESR PT INR Sodium Potassium Chloride Carbon Dioxide Anion Gap BUN Creatinine Estim Creat Clear Calc Estimated GFR POC Glucose Random Glucose Lactic Acid Lactic Acid Fup @ 2Hr 13.8 H* Lactic Acid Fup @ 4Hr 12.7 H* Calcium Magnesium Total Bilirubin Direct Bilirubin AST ALT Alkaline Phosphatase Troponin I High Sens C-Reactive Protein Total Protein Albumin Urine Color Urine Appearance Urine pH Ur Specific [place] Urine Protein Urine Glucose (UA) Urine Ketones Urine Blood Urine Nitrite Ur Leukocyte Esterase Urine RBC Urine WBC Ur Squamous Epith Cells Urine Bacteria Random Vancomycin Coronavirus (PCR) Influenza Type A (PCR) Influenza Type B (PCR) RSV RNA Qual (PCR) Microbiology Microbiology Results: Microbiology 09/11/20 16:32 Blood - Venous Blood Culture - Preliminary 09/11/20 17:10 Blood - Venous Blood Culture - Preliminary 09/11/20 18:42 Urine clean catch - Clean Catch Midstream Urine Culture - Preliminary Proteus species Assessment & Plan Assessment and plan (1) PRIYANKA (acute kidney injury): Status: Acute (2) Metabolic acidosis: Status: Acute Assessment and Plan: PRIYANKA due to septic and ischemic acute tubular injury hypotensive CT scan negative for type A lactic acidosis due to poor tissue perfusion normal baseline kidney function REC random urine sodium continue bicarbonate drip no indication for emergent dialysis follow kidney function and electrolytes Thank you Time Spent With Patient Time: Total time spent is greater than 50% in coordination of care (as documented) at patient's floor/unit and/or counseling patient:
[2020-09-12] MEDS: 0.9 % Sodium Chloride 1,000 ML 100 ML IVCONT (15:24)
[2020-09-12 15:27] LABS: Anion Gap 23 (12-20); Blood Urea Nitrogen 97 mg/dL (9-16); Calcium 7.1 mg/dL (8.4-10.2); Carbon Dioxide 26 mmol/L (22-29); Chloride 97 mmol/L (96-108); Creatinine Clr Calc Pharmacy 11.4; Estimated Glomerular Filt Rate 13; Glucose Random 151 mg/dL (60-115); Potassium 4.2 mmol/l (3.3-5.1); Sodium 142 mmol/L (135-145)
[2020-09-12] MEDS: oxyCODONE HCl Immed Release 5 MG TABLET 2.5 MG PO (17:11)
[2020-09-12 17:15] LABS: Glucose, Whole Blood 115 mg/dL (60-115)
--- NOTE | 2020-09-12 19:08 | P.CONGS_ITS ---
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 In the emergency department, she was noted to have multiple electrolyte abnormalities and acute kidney injury as well as sepsis possibly secondary to urinary tract infection. Currently, she is awake and cooperative but is not oriented. She reports bilateral leg pain. She has been under the care of the [facility] for management of her sacral decubitus ulcer. She also has been treated by Dr. Helms, who performed a d ebridement of the ulcer in February of 2020 and applied a wound VAC. she had been receiving wound VAC therapy until recently. CT scan of the abdomen and pelvis obtained last night was consistent with known stage IV sacral decubitus ulcer. Review of Systems Review of Systems: Unreliable [facility] Past Medical History Medical History Anemia Anxiety disorder Chondrocostal junction syndrome [tietze] COVID-19 Hyperlipidemia Lymphedema Osteomyelitis of sacrum Type 2 diabetes mellitus Family History Family history: reviewed and not pertinent Surgical History Surgical History H/O lumbosacral spine surgery Sacral decubitus ulcer, stage IV Social History Social History Household Members: Other Alcohol intake: never Smoking Status: Never smoker Use of substances other than those prescribed or required for medical reasons: No Do you feel safe in your current relationship?: No Current Relationship Advance Directives: No Advance Directives Information Provided: No Do you have thoughts of harming others: None Do you have a plan to hurt others: No Plan Recently lost weight without trying: Unsure service: No Meds Allergies Allergy/AdvReac Type Severity Reaction Status Date / Time clindamycin Allergy Rash Verified 09/12/20 03:19 Home Medications Medication Instructions Recorded Confirmed Type Lactobacillus rhamnosus GG 10 1 cap PO BID PRN 07/12/20 09/11/20 History billion cell capsule acetaminophen 325 mg capsule 650 mg PO Q6H PRN 07/12/20 09/11/20 History ammonium lactate 12 % lotion 1 applic TOPICAL DAILY 07/12/20 09/11/20 History bisacodyl 5 mg tablet,delayed 5 mg PO BEDTIME PRN 07/12/20 09/11/20 History release diclofenac sodium 1 % topical gel 4 g TOPICAL BID g 07/12/20 09/11/20 History metformin 1,000 mg tablet,extended 1,000 mg PO DAILY 07/12/20 09/11/20 History release 24hr metoprolol tartrate 50 mg tablet 50 mg PO BID 07/12/20 09/11/20 History oxycodone 10 mg tablet 10 mg PO TID PRN 07/12/20 09/11/20 History oxycodone 15 mg tablet,crush 15 mg PO Q12H 07/12/20 09/11/20 History resistant,extended release 12 hr pantoprazole 40 mg tablet,delayed 40 mg PO DAILY 07/12/20 09/11/20 History release polyethylene glycol 3350 17 gram 17 g PO DAILY 07/12/20 09/11/20 History oral powder packet sennosides 8.6 mg tablet 8.6 mg PO BEDTIME PRN 07/12/20 09/11/20 History Physical Exam Vital Signs: Vital Signs: Last Vital Signs Temp 98.2 F 09/12/20 15:45 Pulse 108 H 09/12/20 15:45 Resp 18 09/12/20 15:45 BP 116/55 L 09/12/20 15:45 Pulse Ox 98 09/12/20 15:45 Body Mass Index 18.6 Const: General: cooperative, awake and ill appearing Skin: Other: Sacral decubitus ulcer approximately 12 x 8 cm with granulating base and patchy areas of exposed bone Results Labs Result diagrams: 09/12/20 04:08 09/12/20 14:52 Labs: Abnormal lab results 09/11/20 09/11/20 09/11/20 Range/Units 20:28 21:34 22:43 WBC (4.8-10.8) X10*3/uL RBC (4.20-5.50) X10*6/uL Hgb (12.0-16.0) g/dl Hct (37-47) % MCH (27.0-33.0) pg MCHC (31.0-35.0) g/dl MPV (9.4-12.3) fL Immature Gran % (Auto) (0.0-0.4) % Neut % (Auto) (45-73) % Lymph % (Auto) (20-40) % Lymph # (Auto) (1.2-4.9) X10*3/uL Abs Immat Gran (auto) (0.00-0.03) X10*3/uL Absolute Neuts (auto) (2.0-8.3) X10*3/uL ESR (0-20) MM/HR Potassium 5.8 H (3.3-5.1) mmol/l Carbon Dioxide 19 L (22-29) mmol/L Anion Gap 24 H (12-20) BUN 110 H* (9-16) mg/dL Creatinine 4.09 H* (0.5-1.4) mg/dL POC Glucose (60-115) mg/dL Random Glucose 278 H D (60-115) mg/dL Lactic Acid (0.5-2.0) mmol/L Lactic Acid Fup @ 2Hr 7.5 H* (0.5-2.0) mmol/L Lactic Acid Fup @ 4Hr 10.3 H* (0.5-2.0) mmol/L Calcium 7.9 L (8.4-10.2) mg/dL C-Reactive Protein (< or = 0.50) mg/dL Random Vancomycin (15-20) mcg/mL 09/12/20 09/12/20 09/12/20 Range/Units 02:50 02:50 04:08 WBC 12.2 H (4.8-10.8) X10*3/uL RBC 3.26 L (4.20-5.50) X10*6/uL Hgb 8.1 L (12.0-16.0) g/dl Hct 27.2 L (37-47) % MCH 24.8 L (27.0-33.0) pg MCHC 29.8 L (31.0-35.0) g/dl MPV 8.9 L (9.4-12.3) fL Immature Gran % (Auto) 1.1 H (0.0-0.4) % Neut % (Auto) 91.1 H (45-73) % Lymph % (Auto) 5.6 L (20-40) % Lymph # (Auto) 0.7 L (1.2-4.9) X10*3/uL Abs Immat Gran (auto) 0.13 H (0.00-0.03) X10*3/uL Absolute Neuts (auto) 11.1 H (2.0-8.3) X10*3/uL ESR 80 H (0-20) MM/HR Potassium (3.3-5.1) mmol/l Carbon Dioxide (22-29) mmol/L Anion Gap (12-20) BUN (9-16) mg/dL Creatinine (0.5-1.4) mg/dL POC Glucose (60-115) mg/dL Random Glucose (60-115) mg/dL Lactic Acid (0.5-2.0) mmol/L Lactic Acid Fup @ 2Hr (0.5-2.0) mmol/L Lactic Acid Fup @ 4Hr (0.5-2.0) mmol/L Calcium (8.4-10.2) mg/dL C-Reactive Protein 16.35 H (< or = 0.50) mg/dL Random Vancomycin (15-20) mcg/mL 09/12/20 09/12/20 09/12/20 Range/Units 04:08 05:47 07:19 WBC (4.8-10.8) X10*3/uL RBC (4.20-5.50) X10*6/uL Hgb (12.0-16.0) g/dl Hct (37-47) % MCH (27.0-33.0) pg MCHC (31.0-35.0) g/dl MPV (9.4-12.3) fL Immature Gran % (Auto) (0.0-0.4) % Neut % (Auto) (45-73) % Lymph % (Auto) (20-40) % Lymph # (Auto) (1.2-4.9) X10*3/uL Abs Immat Gran (auto) (0.00-0.03) X10*3/uL Absolute Neuts (auto) (2.0-8.3) X10*3/uL ESR (0-20) MM/HR Potassium (3.3-5.1) mmol/l Carbon Dioxide 18 L (22-29) mmol/L Anion Gap 29 H (12-20) BUN 106 H* (9-16) mg/dL Creatinine 3.91 H (0.5-1.4) mg/dL POC Glucose 140 H (60-115) mg/dL Random Glucose 166 H D (60-115) mg/dL Lactic Acid 14.3 H* (0.5-2.0) mmol/L Lactic Acid Fup @ 2Hr (0.5-2.0) mmol/L Lactic Acid Fup @ 4Hr (0.5-2.0) mmol/L Calcium 7.7 L (8.4-10.2) mg/dL C-Reactive Protein (< or = 0.50) mg/dL Random Vancomycin (15-20) mcg/mL 09/12/20 09/12/20 09/12/20 Range/Units 08:03 08:17 10:58 WBC (4.8-10.8) X10*3/uL RBC (4.20-5.50) X10*6/uL Hgb (12.0-16.0) g/dl Hct (37-47) % MCH (27.0-33.0) pg MCHC (31.0-35.0) g/dl MPV (9.4-12.3) fL Immature Gran % (Auto) (0.0-0.4) % Neut % (Auto) (45-73) % Lymph % (Auto) (20-40) % Lymph # (Auto) (1.2-4.9) X10*3/uL Abs Immat Gran (auto) (0.00-0.03) X10*3/uL Absolute Neuts (auto) (2.0-8.3) X10*3/uL ESR (0-20) MM/HR Potassium (3.3-5.1) mmol/l Carbon Dioxide (22-29) mmol/L Anion Gap (12-20) BUN (9-16) mg/dL Creatinine (0.5-1.4) mg/dL POC Glucose (60-115) mg/dL Random Glucose (60-115) mg/dL Lactic Acid (0.5-2.0) mmol/L Lactic Acid Fup @ 2Hr 13.8 H* (0.5-2.0) mmol/L Lactic Acid Fup @ 4Hr 12.7 H* (0.5-2.0) mmol/L Calcium (8.4-10.2) mg/dL C-Reactive Protein (< or = 0.50) mg/dL Random Vancomycin 11.4 L (15-20) mcg/mL 09/12/20 Range/Units 14:52 WBC (4.8-10.8) X10*3/uL RBC (4.20-5.50) X10*6/uL Hgb (12.0-16.0) g/dl Hct (37-47) % MCH (27.0-33.0) pg MCHC (31.0-35.0) g/dl MPV (9.4-12.3) fL Immature Gran % (Auto) (0.0-0.4) % Neut % (Auto) (45-73) % Lymph % (Auto) (20-40) % Lymph # (Auto) (1.2-4.9) X10*3/uL Abs Immat Gran (auto) (0.00-0.03) X10*3/uL Absolute Neuts (auto) (2.0-8.3) X10*3/uL ESR (0-20) MM/HR Potassium (3.3-5.1) mmol/l Carbon Dioxide (22-29) mmol/L Anion Gap 23 H (12-20) BUN 97 H* (9-16) mg/dL Creatinine 3.34 H (0.5-1.4) mg/dL POC Glucose (60-115) mg/dL Random Glucose 151 H (60-115) mg/dL Lactic Acid (0.5-2.0) mmol/L Lactic Acid Fup @ 2Hr (0.5-2.0) mmol/L Lactic Acid Fup @ 4Hr (0.5-2.0) mmol/L Calcium 7.1 L D (8.4-10.2) mg/dL C-Reactive Protein (< or = 0.50) mg/dL Random Vancomycin (15-20) mcg/mL Short CBC 09/12/20 Range/Units 04:08 WBC 12.2 H (4.8-10.8) X10*3/uL Hgb 8.1 L (12.0-16.0) g/dl Hct 27.2 L (37-47) % Plt Count 321 (160-400) X10*3/uL BMP 09/11/20 09/12/20 09/12/20 21:34 04:08 14:52 Sodium 138 141 142 Potassium 5.8 H 4.4 D 4.2 Chloride 101 98 97 Carbon Dioxide 19 L 18 L 26 BUN 110 H* 106 H* 97 H* Creatinine 4.09 H* 3.91 H 3.34 H Calcium 7.9 L 7.7 L 7.1 L D Urine 09/11/20 Range/Units 18:26 Urine Color YELLOW Urine Appearance TURBID Urine pH 7.0 (5.0-8.0) Ur Specific [place] 1.025 (1.005-1.025) Urine Protein 2+ H (NEG-TRACE) MG/DL Urine Glucose (UA) 100 H (NEG) MG/DL All other labs normal. Assessment and Plan (1) Sacral decubitus ulcer, stage IV: Problem details: Chronic. Status: Acute Continue local care, saline gauze dressings for now. Obtain wound clinic notes. Low air loss bed (2) Osteomyelitis of sacrum: Problem details: Secondary to stage IV sacral decubitus ulcer Status: Acute (3) Malnutrition of moderate degree: Status: Acute Add dietary supplements per recommendations of dietitian.
[2020-09-12 20:25] LABS: Glucose, Whole Blood 104 mg/dL (60-115)
[2020-09-13] MEDS: 0.9 % Sodium Chloride Flush 3 ML SYRINGE IVFLUSH ×3 (00:35→16:36)
[2020-09-13] MEDS: Doxycycline Hyclate 100 MG in 0.9 % Sodium Chloride 250 ML 166.67 MG IV ×2 (00:35→12:07)
[2020-09-13] MEDS: 0.9 % Sodium Chloride 1,000 ML 100 ML IVCONT ×3 (00:47→21:15)
[2020-09-13] MEDS: Heparin Sodium,Porcine 5,000 UNIT/ML VIAL 5000 UNIT SUBCUT ×2 (03:51→16:36)
[2020-09-13 04:00] VITALS: BP 119/60; PULSE 98; RESP 18; TEMP 36.7; O2SAT 97
[2020-09-13 06:00] VITALS: BMI 19.8
[2020-09-13 06:51] LABS: Hematocrit 23.2 % (37-47); Hemoglobin 7.1 g/dl (12.0-16.0); Mean Corpuscular HGB Conc 30.6 g/dl (31.0-35.0); Mean Corpuscular Hemoglobin 24.5 pg (27.0-33.0); Platelet Count 244 X10*3/uL (160-400); Red Cell Distribution Width 15.4 % (11.0-16.0); White Blood Count 9.8 X10*3/uL (4.8-10.8)
[2020-09-13 07:35] LABS: Creatinine Clr Calc Pharmacy 14.2; Estimated Glomerular Filt Rate 16
[2020-09-13 07:37] LABS: Alanine Aminotransferase 8 U/L (0-31); Anion Gap 13 (12-20); Aspartate Amino Transferase 18 U/L (5-31); Bilirubin Direct 0.3 mg/dL (0.0-0.5); Bilirubin Total 0.4 mg/dL (0.0-1.0); Carbon Dioxide 33 mmol/L (22-29); Chloride 100 mmol/L (96-108); Potassium 3.9 mmol/l (3.3-5.1); Sodium 142 mmol/L (135-145)
[2020-09-13 07:47] VITALS: BP 123/65; PULSE 94; RESP 18; TEMP 36.6; O2SAT 97
[2020-09-13 07:53] LABS: Glucose, Whole Blood 87 mg/dL (60-115)
[2020-09-13] MEDS: polyethylene glycoL 3350 17 GM POWD.PACK PO (07:56)
[2020-09-13 08:03] LABS: Albumin Level 1.9 g/dL (3.5-5.0); Alkaline Phosphatase 66 U/L (39-117); Calcium 7.1 mg/dL (8.4-10.2); Glucose Random 96 mg/dL (60-115)
[2020-09-13 08:27] LABS: Blood Urea Nitrogen 88 mg/dL (9-16)
[2020-09-13 11:12] LABS: Glucose, Whole Blood 98 mg/dL (60-115)
[2020-09-13 11:34] VITALS: BP 136/67; PULSE 93; RESP 18; TEMP 36.7; O2SAT 99
--- NOTE | 2020-09-13 11:42 | PM.PNNEP ---
Subjective Subjective Date of Service: 09/13/20 Interval history: Patient seen and examined no complaints Physical Exam Vital Signs: Vital Signs: Last Vital Signs Temp 98.0 F 09/13/20 11:34 Pulse 93 09/13/20 11:34 Resp 18 09/13/20 11:34 BP 136/67 09/13/20 11:34 Pulse Ox 99 09/13/20 11:34 Body Mass Index 19.8 Const: General: no acute distress HENMT: Head: Yes normocephalic and Yes atraumatic Neck: Neck: Yes supple Resp: Auscultation: diminished lung sounds Cardio: Heart sounds: S1 normal heart sound present and S2 normal heart sound present GI: Palpation (GI): Soft to palpation and no guarding Extrem: General: No edema Objective Data Labs CBC & Chem 7: 09/13/20 06:08 09/13/20 06:08 Labs: Laboratory Results - last 24 hr 09/12/20 09/12/20 09/12/20 10:58 14:52 17:12 WBC RBC Hgb Hct MCV MCH MCHC RDW Plt Count MPV Absolute Nucleated RBC Nucleated RBC % (auto) Sodium 142 Potassium 4.2 Chloride 97 Carbon Dioxide 26 Anion Gap 23 H BUN 97 H* Creatinine 3.34 H Estim Creat Clear Calc 11.4 Estimated GFR 13 POC Glucose 115 Random Glucose 151 H Lactic Acid Fup @ 4Hr 12.7 H* Calcium 7.1 L D Total Bilirubin Direct Bilirubin AST ALT Alkaline Phosphatase Total Protein Albumin 09/12/20 09/13/20 09/13/20 20:22 06:08 06:08 WBC 9.8 RBC 2.90 L Hgb 7.1 L Hct 23.2 L MCV 80.0 MCH 24.5 L MCHC 30.6 L RDW 15.4 Plt Count 244 MPV 9.0 L Absolute Nucleated RBC 0.000 Nucleated RBC % (auto) 0.0 Sodium 142 Potassium 3.9 Chloride 100 Carbon Dioxide 33 H Anion Gap 13 BUN 88 H* Creatinine 2.86 H Estim Creat Clear Calc 14.2 Estimated GFR 16 POC Glucose 104 Random Glucose 96 D Lactic Acid Fup @ 4Hr Calcium 7.1 L Total Bilirubin 0.4 Direct Bilirubin 0.3 AST 18 ALT 8 Alkaline Phosphatase 66 D Total Protein 5.0 L D Albumin 1.9 L D 09/13/20 09/13/20 07:46 11:08 WBC RBC Hgb Hct MCV MCH MCHC RDW Plt Count MPV Absolute Nucleated RBC Nucleated RBC % (auto) Sodium Potassium Chloride Carbon Dioxide Anion Gap BUN Creatinine Estim Creat Clear Calc Estimated GFR POC Glucose 87 98 Random Glucose Lactic Acid Fup @ 4Hr Calcium Total Bilirubin Direct Bilirubin AST ALT Alkaline Phosphatase Total Protein Albumin Microbiology Microbiology Results: Microbiology 09/11/20 18:42 Urine clean catch - Clean Catch Midstream Urine Culture - Final Proteus species 09/11/20 17:10 Blood - Venous Blood Culture - Preliminary Proteus species 09/11/20 16:32 Blood - Venous Blood Culture - Preliminary Proteus species Assessment & Plan Assessment and plan (1) PRIYANKA (acute kidney injury): Status: Acute (2) Metabolic acidosis: Status: Acute Assessment and Plan: kidney function better PRIYANKA due to septic and ischemic acute tubular injury hypotensive earlier CT scan negative for obstruction type A lactic acidosis due to poor tissue perfusion improved normal baseline kidney function REC discontinue bicarbonate drip change IVF to NS follow kidney function and electrolytes Time Spent With Patient Time: Total time spent is greater than 50% in coordination of care (as documented) at patient's floor/unit and/or counseling patient:
--- NOTE | 2020-09-13 12:25 | CONS_ITS ---
DATE OF SERVICE: 09/12/2020 HISTORY OF PRESENT ILLNESS: I was asked to assist in the management of this 80-year-old patient, who has a normal baseline kidney function, presented to the hospital with altered mental status, currently with worsening kidney function. The patient noted to have an elevated white count in the setting of urinary tract infection and osteomyelitis. The patient reports abdominal discomfort with nausea, but no vomiting. There is no report of fever or chills. She denies any chest pain or shortness of breath. CT scan of the abdomen did not show any evidence for obstruction, and review of her vital signs show hypotension with systolic blood pressure down to the 80s. PAST MEDICAL HISTORY: Remarkable for dyslipidemia, diabetes mellitus, anxiety, anemia, history of COVID-19, and sacral osteomyelitis. PAST SURGICAL HISTORY: Notable for history of lumbosacral spine surgery. MEDICATIONS: Include IV fluid, doxycycline, heparin, and insulin. ALLERGIES: REVIEWED. SOCIAL HISTORY: She does not smoke. FAMILY HISTORY: Negative for kidney disease. REVIEW OF SYSTEMS: A 10-point review of system is negative, except pertinent in history of present illness. PHYSICAL EXAMINATION: VITAL SIGNS: Blood pressure 114/55, heart rate 118, respiratory rate 18, and temperature 97.9. CONSTITUTIONAL: She looks her stated age, in no acute distress. NEUROLOGIC: Alert and awake. HEENT: Head: Atraumatic and normocephalic. NECK: Supple. LUNGS: Decreased breath sounds. CARDIOVASCULAR: S1, S2. Tachy. ABDOMEN: Soft. Mildly tender on deep palpation. EXTREMITIES: With no peripheral edema. LABORATORY DATA: Labs showed a white count 12.2, hemoglobin 8.1, platelet count 321. Sodium 141, potassium 4.4, chloride 98, CO2 of 18, BUN 106, creatinine 3.91. Lactic acid is 12.7. Urine, 2+ protein, too numerous to count white blood cell, 10 to 14 rbc. IMPRESSION AND PLAN: 1. Acute kidney injury. 2. Metabolic acidosis. This is a patient who presents with acute kidney injury, most likely due to a septic and ischemic acute tubular injury. There is no evidence for obstruction. The clinical history is not consistent with acute of injury. She has normal baseline kidney function. She has an elevated lactic acid, which is due to poor tissue perfusion. RECOMMENDATIONS: My recommendation would be, 1. Random urine sodium. 2. Continue IV fluid with sodium bicarbonate. 3. No indication for emergent dialysis. 4. Follow kidney function and electrolytes. Gabino Eubanks MD GF/MODL / [id number]
--- NOTE | 2020-09-13 12:26 | P.PNIM_ITS ---
Subjective Subjective Date of Service: 09/13/20 Interval History: the patient was seen and evaluated this morning Laying in bed, feels lethargic and tired, mildly confused Denies any fever, chills or shortness of breath Report pain all over her body No reported other overnight events. Systemic review: No fever, chills but reports generalized weakness No chest pain, palpitation No shortness of breath or coughing No abdominal pain, nausea or vomiting No urinary symptoms No any rash or wounds Physical Exam Vital Signs: Vital Signs: Last Vital Signs Temp 98.0 F 09/13/20 11:34 Pulse 93 09/13/20 11:34 Resp 18 09/13/20 11:34 BP 136/67 09/13/20 11:34 Pulse Ox 99 09/13/20 11:34 Body Mass Index 19.8 Constitutional : Alert, oriented to self and place, in mild distress Neck : Normal inspection, Supple Cardiovascular : RRR, S1 S2, no lower extremity edema Respiratory : Good bilateral air entry, no crackles, wheezes or rhonchi Gastrointestinal: soft, lax, Normal bowel sounds, Non tender Skin : Warm/Dry, No rash Neurological : Alert & oriented to place and self, No focal deficit Objective Data Current Medications Generic Name Dose Route Start Last Admin Trade Name Freq PRN Reason Stop Dose Admin Acetaminophen 650 mg 09/12/20 02:22 Acetaminophen 325 Mg Tablet PO Q6H PRN Pain, Mild (Pain Scale 1-3) Docusate Sodium 100 mg 09/12/20 02:22 Docusate Sodium 100 Mg Capsule PO DAILY PRN Constipation Heparin Sodium (Porcine) 5,000 unit 09/12/20 04:00 09/13/20 03:51 Heparin Sodium,Porcine 5,000 Unit/Ml Vial SUBCUT 5,000 unit Q12H [facility] Administration Doxycycline Hyclate 100 mg/ 250 mls @ 166.67 mls/hr 09/12/20 12:00 09/13/20 12:07 Sodium Chloride IV 166.67 mls/hr Q12H [facility] Administration Sodium Chloride 1,000 mls @ 100 mls/hr 09/12/20 14:15 09/13/20 09:35 Ns IVCONT 100 mls/hr .Q10H [facility] Administration Ceftriaxone Sodium 1 gm/ 50 mls @ 100 mls/hr 09/14/20 00:00 Sodium Chloride IV Q24H [facility] Insulin Human Lispro 0 unit 09/12/20 07:30 09/13/20 12:01 Insulin Lispro 100 Unit/Ml 3 Ml Vial SUBCUT Not Given QIDACHS [facility] Protocol Magnesium Hydroxide 15 ml 09/12/20 05:17 Milk Of Magnesia 30 Ml Oral.Susp PO BEDTIME PRN Constipation Ondansetron HCl 4 mg 09/12/20 02:22 Ondansetron Hcl 4 Mg/2 Ml Vial IVPUSH Q8H PRN Nausea and Vomiting Oxycodone HCl 2.5 mg 09/12/20 16:37 09/12/20 17:11 Oxycodone Hcl Immed Release 5 Mg Tablet PO 2.5 mg Q4H PRN Administration Pain, Severe (Pain Scale 7-10) Pharmacy Consult 1 each 09/11/20 19:23 Consult Rx Perform Med Rec MISCELLANE ONCE PRN Consult order Pharmacy Consult 1 each 09/12/20 00:47 Consult Rx Vancomycin Dosing MISCELLANE DAILY PRN Consult order Polyethylene Glycol 17 gm 09/12/20 09:00 09/13/20 07:56 Polyethylene Glycol 3350 17 Gm Powd.Pack PO 17 gm DAILY [facility] Administration Senna 8.6 mg 09/12/20 16:38 Sennosides 8.6 Mg Tablet PO BEDTIME PRN constipation Sodium Chloride 3 ml 09/12/20 02:22 09/13/20 07:56 0.9 % Sodium Chloride Flush 3 Ml Syringe IVFLUSH 3 ml QSHIFT [facility] Administration Labs CBC & Chem 7: 09/13/20 06:08 09/13/20 06:08 Microbiology Microbiology Results: Microbiology 09/11/20 18:42 Urine clean catch - Clean Catch Midstream Urine Culture - Final Proteus species 09/11/20 17:10 Blood - Venous Blood Culture - Preliminary Proteus species 09/11/20 16:32 Blood - Venous Blood Culture - Preliminary Proteus species Assessment and Plan (1) Acute UTI: Status: Acute (2) Severe sepsis: Status: Acute (3) Lactic acidosis: Status: Acute (4) Osteomyelitis of sacrum: Status: Acute (5) Acute renal failure: Status: Acute Assessment and Plan: 80-year-old female with both medical history as above who presents to the hospital with increased leukocytosis as well as altered mentation Acute metabolic encephalopathy Improving secondary to sepsis, PRIYANKA Treat underlying problems Avoid medications that might worsen her mental status Severe sepsis Likely secondary to sacral osteomyelitis Continue doxycycline for now DC vancomycin for acute renal failure Zosyn discontinued by ID Id input appreciated CT of the pelvis showed gas and concern for osteomyelitis Surgery input appreciated, local care with dressing UTI Urine growing Proteus, pending final sensitivity On IV antibiotics, consider ceftriaxone lactic acidosis Secondary to sepsis and using metformin Received IV fluid boluses Acute renal failure Likely a result of sepsis, dehydration Continue IV fluid Pending nephro evaluation Monitor intake and output Moderate protein malnutrition Add supplement per dietitian recommendation Acute on chronic anemia Hemoglobin to 7.1 from baseline of around 9 Likely dilution with using IV fluid continue to monitor, no source of bleeding identified DVT prophylaxis: Heparin subQ
--- NOTE | 2020-09-13 13:30 | MHC.CM.PN ---
Returning to [facility] is the goal for dc and CM will continue to follow for possible need to adjust the dc plan.Patient is receiving IV Ceftriaxone and IV Doxycycline r/t Sepsis/UTI.
[2020-09-13 15:15] VITALS: BP 139/66; PULSE 103; RESP 18; TEMP 36.8; O2SAT 99
[2020-09-13 16:25] LABS: Glucose, Whole Blood 96 mg/dL (60-115)
[2020-09-13 19:58] VITALS: BP 146/77; PULSE 106; RESP 18; TEMP 36.5; O2SAT 99
[2020-09-13 21:16] LABS: Glucose, Whole Blood 96 mg/dL (60-115)
[2020-09-13 23:57] VITALS: BP 121/65; PULSE 92; RESP 18; TEMP 36.5; O2SAT 100
[2020-09-14] VITALS (10 sets, daily range): BP systolic 130–153; BP diastolic 73–88; PULSE 94–111; RESP 18–20; TEMP 36.4–37.3; O2SAT 97–99; BMI 20.4
[2020-09-14] MEDS: cefTRIAXone sodium 1 GM in 0.9 % Sodium Chloride 50 ML IV ×2 (01:27→23:29)
[2020-09-14] MEDS: Doxycycline Hyclate 100 MG in 0.9 % Sodium Chloride 250 ML 166.67 MG IV ×2 (02:06→12:32)
[2020-09-14] MEDS: Heparin Sodium,Porcine 5,000 UNIT/ML VIAL 5000 UNIT SUBCUT ×2 (06:05→18:25)
[2020-09-14 06:22] LABS: Hematocrit 22.6 % (37-47); Mean Corpuscular HGB Conc 30.1 g/dl (31.0-35.0); Mean Corpuscular Hemoglobin 24.5 pg (27.0-33.0); Mean Corpuscular Volume 81.3 fL (80-98); Mean Platelet Volume 9.2 fL (9.4-12.3); Platelet Count 205 X10*3/uL (160-400); Red Blood Count 2.78 X10*6/uL (4.20-5.50); Red Cell Distribution Width 15.5 % (11.0-16.0); White Blood Count 8.6 X10*3/uL (4.8-10.8)
[2020-09-14 06:28] LABS: INTERNATIONAL NORM RATIO 1.3 (0.9-1.1); Prothrombin Time 14.9 SEC (10.8-13.0)
[2020-09-14 06:37] LABS: Hemoglobin 6.8 g/dl (12.0-16.0)
--- NOTE | 2020-09-14 06:43 | PM.EVENT ---
Event Note Date of Service: 09/14/20 Event Note: Hgb 6.8, with no acute source of bleeding. Will transfuse 1 unit
[2020-09-14 07:09] LABS: Alanine Aminotransferase 7 U/L (0-31); Albumin Level 1.8 g/dL (3.5-5.0); Alkaline Phosphatase 66 U/L (39-117); Anion Gap 16 (12-20); Aspartate Amino Transferase 20 U/L (5-31); Bilirubin Direct 0.2 mg/dL (0.0-0.5); Bilirubin Total 0.3 mg/dL (0.0-1.0); Blood Urea Nitrogen 70 mg/dL (9-16); Carbon Dioxide 27 mmol/L (22-29); Chloride 105 mmol/L (96-108); Creatinine Clr Calc Pharmacy 18.4; Estimated Glomerular Filt Rate 21; Glucose Random 75 mg/dL (60-115); Potassium 3.5 mmol/l (3.3-5.1); Sodium 144 mmol/L (135-145)
[2020-09-14 07:34] LABS: Glucose, Whole Blood 77 mg/dL (60-115)
[2020-09-14 11:32] LABS: Glucose, Whole Blood 118 mg/dL (60-115)
[2020-09-14] MEDS: 0.9 % Sodium Chloride 1,000 ML 100 ML IVCONT ×2 (12:36→21:11)
--- NOTE | 2020-09-14 13:56 | PM.PNNEP ---
Subjective Subjective Date of Service: 09/14/20 Interval history: seen and examined no complaints Physical Exam Vital Signs: Vital Signs: Last Vital Signs Temp 98.1 F 09/14/20 12:07 Pulse 105 H 09/14/20 12:07 Resp 20 09/14/20 12:07 BP 145/85 H 09/14/20 12:07 Pulse Ox 97 09/14/20 08:00 Body Mass Index 20.4 Const: General: no acute distress HENMT: Head: Yes normocephalic and Yes atraumatic Neck: Neck: Yes supple Resp: Auscultation: diminished lung sounds Cardio: Heart sounds: S1 normal heart sound present and S2 normal heart sound present GI: Palpation (GI): Soft to palpation and no guarding Extrem: General: No edema Objective Data Labs CBC & Chem 7: 09/14/20 05:25 09/14/20 05:25 Labs: Laboratory Results - last 24 hr 09/13/20 09/13/20 09/14/20 16:20 21:12 05:25 WBC 8.6 RBC 2.78 L Hgb 6.8 L* Hct 22.6 L MCV 81.3 MCH 24.5 L MCHC 30.1 L RDW 15.5 Plt Count 205 MPV 9.2 L Absolute Nucleated RBC 0.000 Nucleated RBC % (auto) 0.0 PT INR Sodium Potassium Chloride Carbon Dioxide Anion Gap BUN Creatinine Estim Creat Clear Calc Estimated GFR POC Glucose 96 96 Random Glucose Calcium Total Bilirubin Direct Bilirubin AST ALT Alkaline Phosphatase Total Protein Albumin Blood Type Antibody Screen Crossmatch 09/14/20 09/14/20 09/14/20 05:25 05:25 07:11 WBC RBC Hgb Hct MCV MCH MCHC RDW Plt Count MPV Absolute Nucleated RBC Nucleated RBC % (auto) PT 14.9 H INR 1.3 H Sodium 144 Potassium 3.5 Chloride 105 Carbon Dioxide 27 Anion Gap 16 BUN 70 H Creatinine 2.28 H Estim Creat Clear Calc 18.4 Estimated GFR 21 POC Glucose Random Glucose 75 Calcium 7.0 L Total Bilirubin 0.3 Direct Bilirubin 0.2 AST 20 ALT 7 Alkaline Phosphatase 66 Total Protein 5.0 L Albumin 1.8 L Blood Type O Positive Antibody Screen NEGATIVE Crossmatch See Detail 09/14/20 09/14/20 07:22 11:25 WBC RBC Hgb Hct MCV MCH MCHC RDW Plt Count MPV Absolute Nucleated RBC Nucleated RBC % (auto) PT INR Sodium Potassium Chloride Carbon Dioxide Anion Gap BUN Creatinine Estim Creat Clear Calc Estimated GFR POC Glucose 77 118 H Random Glucose Calcium Total Bilirubin Direct Bilirubin AST ALT Alkaline Phosphatase Total Protein Albumin Blood Type Antibody Screen Crossmatch Microbiology Microbiology Results: Microbiology 09/11/20 17:10 Blood - Venous Blood Culture - Final Proteus mirabilis 09/11/20 16:32 Blood - Venous Blood Culture - Final Proteus mirabilis 09/11/20 18:42 Urine clean catch - Clean Catch Midstream Urine Culture - Final Proteus species Assessment & Plan Assessment and plan (1) PRIYANKA (acute kidney injury): Status: Acute (2) Metabolic acidosis: Status: Acute Assessment and Plan: kidney function continues to improve PRIYANKA due to septic and ischemic acute tubular injury hypotensive earlier CT scan negative for obstruction type A lactic acidosis due to poor tissue perfusion improved normal baseline kidney function REC continue IVF transfuse blood for Hb < 7 follow kidney function and electrolytes Time Spent With Patient Time: Total time spent is greater than 50% in coordination of care (as documented) at patient's floor/unit and/or counseling patient:
--- NOTE | 2020-09-14 14:23 | HO.PM.IMPN ---
Subjective Subjective Date of Service: 09/14/20 Interval History: the patient was seen and evaluated this morning Laying in bed, complaining of being tired and weak Hemoglobin dropped overnight to 6.8 Blood cultures growing Proteus Denies any fever, chills or shortness of breath No reported other overnight events. Systemic review: No fever, chills but reports significant weakness and lethargy No chest pain, palpitation No shortness of breath or coughing No abdominal pain, nausea or vomiting No urinary symptoms No any rash or wounds Physical Exam Vital Signs: Vital Signs: Last Vital Signs Temp 98.1 F 09/14/20 12:07 Pulse 105 H 09/14/20 12:07 Resp 20 09/14/20 12:07 BP 145/85 H 09/14/20 12:07 Pulse Ox 97 09/14/20 08:00 Body Mass Index 20.4 Constitutional : Alert, oriented to self and place, in mild distress Neck : Normal inspection, Supple Cardiovascular : RRR, S1 S2, no lower extremity edema Respiratory : Good bilateral air entry, no crackles, wheezes or rhonchi Gastrointestinal: soft, lax, Normal bowel sounds, Non tender Skin : Warm/Dry, No rash Neurological : Alert & oriented to place and self, No focal deficit Objective Data Current Medications Generic Name Dose Route Start Last Admin Trade Name Freq PRN Reason Stop Dose Admin Acetaminophen 650 mg 09/12/20 02:22 Acetaminophen 325 Mg Tablet PO Q6H PRN Pain, Mild (Pain Scale 1-3) Docusate Sodium 100 mg 09/12/20 02:22 Docusate Sodium 100 Mg Capsule PO DAILY PRN Constipation Heparin Sodium (Porcine) 5,000 unit 09/12/20 04:00 09/14/20 06:05 Heparin Sodium,Porcine 5,000 Unit/Ml Vial SUBCUT 5,000 unit Q12H [facility] Administration Doxycycline Hyclate 100 mg/ 250 mls @ 166.67 mls/hr 09/12/20 12:00 09/14/20 12:32 Sodium Chloride IV 166.67 mls/hr Q12H [facility] Administration Sodium Chloride 1,000 mls @ 100 mls/hr 09/12/20 14:15 09/14/20 12:36 Ns IVCONT 100 mls/hr .Q10H [facility] Administration Ceftriaxone Sodium 1 gm/ 50 mls @ 100 mls/hr 09/14/20 00:00 09/14/20 01:58 Sodium Chloride IV Infused Q24H [facility] Infusion Insulin Human Lispro 0 unit 09/12/20 07:30 09/14/20 12:13 Insulin Lispro 100 Unit/Ml 3 Ml Vial SUBCUT Not Given QIDACHS [facility] Protocol Magnesium Hydroxide 15 ml 09/12/20 05:17 Milk Of Magnesia 30 Ml Oral.Susp PO BEDTIME PRN Constipation Ondansetron HCl 4 mg 09/12/20 02:22 Ondansetron Hcl 4 Mg/2 Ml Vial IVPUSH Q8H PRN Nausea and Vomiting Oxycodone HCl 2.5 mg 09/12/20 16:37 09/12/20 17:11 Oxycodone Hcl Immed Release 5 Mg Tablet PO 2.5 mg Q4H PRN Administration Pain, Severe (Pain Scale 7-10) Pharmacy Consult 1 each 09/11/20 19:23 Consult Rx Perform Med Rec MISCELLANE ONCE PRN Consult order Pharmacy Consult 1 each 09/12/20 00:47 Consult Rx Vancomycin Dosing MISCELLANE DAILY PRN Consult order Polyethylene Glycol 17 gm 09/12/20 09:00 09/14/20 09:45 Polyethylene Glycol 3350 17 Gm Powd.Pack PO Not Given DAILY [facility] Senna 8.6 mg 09/12/20 16:38 Sennosides 8.6 Mg Tablet PO BEDTIME PRN constipation Sodium Chloride 3 ml 09/12/20 02:22 09/14/20 08:33 0.9 % Sodium Chloride Flush 3 Ml Syringe IVFLUSH Not Given QSHIFT [facility] Labs CBC & Chem 7: 09/14/20 05:25 09/14/20 05:25 Microbiology Microbiology Results: Microbiology 09/11/20 17:10 Blood - Venous Blood Culture - Final Proteus mirabilis 09/11/20 16:32 Blood - Venous Blood Culture - Final Proteus mirabilis 09/11/20 18:42 Urine clean catch - Clean Catch Midstream Urine Culture - Final Proteus species Assessment and Plan (1) Acute UTI: Status: Acute (2) Severe sepsis: Status: Acute (3) Lactic acidosis: Status: Acute (4) Osteomyelitis of sacrum: Status: Acute (5) Acute renal failure: Status: Acute (6) PRIYANKA (acute kidney injury): Status: Acute (7) Metabolic acidosis: Status: Acute (8) Malnutrition of moderate degree: Status: Acute (9) Sepsis: Status: Acute Assessment and Plan: 80-year-old female with both medical history as above who presents to the hospital with increased leukocytosis as well as altered mentation Severe sepsis Proteus bacteremia Likely secondary to sacral osteomyelitis/UTI Continue doxycycline and ceftriaxone Id input appreciated CT of the pelvis showed gas and concern for osteomyelitis Surgery input appreciated, local care with dressing UTI Urine growing Proteus Continue ceftriaxone lactic acidosis Secondary to sepsis and using metformin Received IV fluid boluses Acute renal failure Improving Likely a result of sepsis, dehydration Continue IV fluid Appreciate nephritis valuation Monitor intake and output Moderate protein malnutrition Add supplement per dietitian recommendation Acute on chronic anemia Hemoglobin dropped to 6.8 Transfuse a unit of blood monitor for any source of bleeding Likely dilution with using IV fluid Check occult blood DVT prophylaxis: Heparin
[2020-09-14 16:07] LABS: Glucose, Whole Blood 100 mg/dL (60-115)
[2020-09-14 19:53] LABS: Glucose, Whole Blood 97 mg/dL (60-115)
[2020-09-15] MEDS: Doxycycline Hyclate 100 MG in 0.9 % Sodium Chloride 250 ML 166.67 MG IV ×2 (00:50→11:28)
[2020-09-15 03:42] VITALS: BP 145/95; PULSE 112; RESP 18; TEMP 37.3; O2SAT 100
[2020-09-15] MEDS: Heparin Sodium,Porcine 5,000 UNIT/ML VIAL 5000 UNIT SUBCUT ×2 (05:48→15:26)
[2020-09-15] MEDS: 0.9 % Sodium Chloride 1,000 ML 100 ML IVCONT (05:48)
[2020-09-15 06:00] VITALS: BMI 20.6
[2020-09-15 06:57] LABS: Hematocrit 27.6 % (37-47); Hemoglobin 8.4 g/dl (12.0-16.0); Mean Corpuscular HGB Conc 30.4 g/dl (31.0-35.0); Mean Corpuscular Hemoglobin 25.8 pg (27.0-33.0); Mean Corpuscular Volume 84.9 fL (80-98); Platelet Count 193 X10*3/uL (160-400); Red Blood Count 3.25 X10*6/uL (4.20-5.50); Red Cell Distribution Width 17.2 % (11.0-16.0); White Blood Count 7.6 X10*3/uL (4.8-10.8)
[2020-09-15 07:19] LABS: Anion Gap 15 (12-20); Blood Urea Nitrogen 50 mg/dL (9-16); Carbon Dioxide 23 mmol/L (22-29); Chloride 109 mmol/L (96-108); Creatinine Clr Calc Pharmacy 26.9; Estimated Glomerular Filt Rate 32; Glucose Random 74 mg/dL (60-115); Sodium 144 mmol/L (135-145)
[2020-09-15 07:36] LABS: Glucose, Whole Blood 78 mg/dL (60-115)
[2020-09-15 08:00] VITALS: BP 133/79; PULSE 107; RESP 16; TEMP 35.7; O2SAT 98
[2020-09-15 09:03] LABS: Glucose, Whole Blood 79 mg/dL (60-115)
[2020-09-15 11:39] LABS: Glucose, Whole Blood 115 mg/dL (60-115)
[2020-09-15 12:00] VITALS: BP 137/86; PULSE 102; RESP 18; TEMP 36.1; O2SAT 97
--- NOTE | 2020-09-15 13:40 | HO.PM.IMPN ---
Subjective Subjective Date of Service: 09/15/20 Interval History: the patient was seen and evaluated this morning Laying in bed, complaining of being tired and weak Hemoglobin improved after transfusion Blood cultures growing sensitive Proteus Denies any fever, chills or shortness of breath No reported other overnight events. Systemic review: No fever, chills but reports significant weakness and lethargy No chest pain, palpitation No shortness of breath or coughing No abdominal pain, nausea or vomiting No urinary symptoms No any rash or wounds Physical Exam Vital Signs: Vital Signs: Last Vital Signs Temp 97.0 F 09/15/20 12:00 Pulse 102 H 09/15/20 12:00 Resp 18 09/15/20 12:00 BP 137/86 09/15/20 12:00 Pulse Ox 97 09/15/20 12:00 Body Mass Index 20.6 Constitutional : Alert, oriented to self and place, in mild distress Neck : Normal inspection, Supple Cardiovascular : RRR, S1 S2, no lower extremity edema Respiratory : Good bilateral air entry, no crackles, wheezes or rhonchi Gastrointestinal: soft, lax, Normal bowel sounds, Non tender Skin : Warm/Dry, No rash Neurological : Alert & oriented to place and self, No focal deficit Objective Data Current Medications Generic Name Dose Route Start Last Admin Trade Name Freq PRN Reason Stop Dose Admin Acetaminophen 650 mg 09/12/20 02:22 Acetaminophen 325 Mg Tablet PO Q6H PRN Pain, Mild (Pain Scale 1-3) Docusate Sodium 100 mg 09/12/20 02:22 Docusate Sodium 100 Mg Capsule PO DAILY PRN Constipation Heparin Sodium (Porcine) 5,000 unit 09/12/20 04:00 09/15/20 05:48 Heparin Sodium,Porcine 5,000 Unit/Ml Vial SUBCUT 5,000 unit Q12H [facility] Administration Doxycycline Hyclate 100 mg/ 250 mls @ 166.67 mls/hr 09/12/20 12:00 09/15/20 12:59 Sodium Chloride IV Infused Q12H [facility] Infusion Ceftriaxone Sodium 1 gm/ 50 mls @ 100 mls/hr 09/14/20 00:00 09/15/20 00:17 Sodium Chloride IV Infused Q24H [facility] Infusion Insulin Human Lispro 0 unit 09/12/20 07:30 09/15/20 11:37 Insulin Lispro 100 Unit/Ml 3 Ml Vial SUBCUT Not Given QIDACHS [facility] Protocol Magnesium Hydroxide 15 ml 09/12/20 05:17 Milk Of Magnesia 30 Ml Oral.Susp PO BEDTIME PRN Constipation Ondansetron HCl 4 mg 09/12/20 02:22 Ondansetron Hcl 4 Mg/2 Ml Vial IVPUSH Q8H PRN Nausea and Vomiting Oxycodone HCl 2.5 mg 09/12/20 16:37 09/12/20 17:11 Oxycodone Hcl Immed Release 5 Mg Tablet PO 2.5 mg Q4H PRN Administration Pain, Severe (Pain Scale 7-10) Pharmacy Consult 1 each 09/11/20 19:23 Consult Rx Perform Med Rec MISCELLANE ONCE PRN Consult order Pharmacy Consult 1 each 09/12/20 00:47 Consult Rx Vancomycin Dosing MISCELLANE DAILY PRN Consult order Polyethylene Glycol 17 gm 09/12/20 09:00 09/15/20 07:39 Polyethylene Glycol 3350 17 Gm Powd.Pack PO Not Given DAILY [facility] Senna 8.6 mg 09/12/20 16:38 Sennosides 8.6 Mg Tablet PO BEDTIME PRN constipation Sodium Chloride 3 ml 09/12/20 02:22 09/15/20 07:39 0.9 % Sodium Chloride Flush 3 Ml Syringe IVFLUSH Not Given QSHIFT [facility] Labs CBC & Chem 7: 09/15/20 06:09 09/15/20 06:09 Microbiology Microbiology Results: Microbiology 09/11/20 17:10 Blood - Venous Blood Culture - Final Proteus mirabilis 09/11/20 16:32 Blood - Venous Blood Culture - Final Proteus mirabilis 09/11/20 18:42 Urine clean catch - Clean Catch Midstream Urine Culture - Final Proteus species Assessment and Plan (1) Acute UTI: Status: Acute (2) Severe sepsis: Status: Acute (3) Lactic acidosis: Status: Acute (4) Osteomyelitis of sacrum: Status: Acute (5) Acute renal failure: Status: Acute (6) PRIYANKA (acute kidney injury): Status: Acute (7) Metabolic acidosis: Status: Acute (8) Malnutrition of moderate degree: Status: Acute (9) Sepsis: Status: Acute Assessment and Plan: 80-year-old female with both medical history as above who presents to the hospital with increased leukocytosis as well as altered mentation Severe sepsis, resolved Proteus bacteremia Likely secondary to sacral osteomyelitis/UTI Continue doxycycline and ceftriaxone Id input appreciated CT of the pelvis showed gas and concern for osteomyelitis Surgery input appreciated, local care with dressing UTI Urine growing Proteus Continue ceftriaxone lactic acidosis Secondary to sepsis and using metformin Acute renal failure Improving back to baseline Likely a result of sepsis, dehydration Discontinue IV fluid Appreciate Nephrology evaluation Monitor intake and output Moderate protein malnutrition Add supplement per dietitian recommendation Acute on chronic anemia Hemoglobin improved to 8.4 after 1 unit transfusion No reported source of bleeding Likely dilution with using IV fluid Negative occult blood DVT prophylaxis: Heparin
--- NOTE | 2020-09-15 14:34 | MHC.CM.PN ---
DP TO RETURN TO [facility] VIA BLS. CM WILL FOLLOW.
[2020-09-15] MEDS: 0.9 % Sodium Chloride Flush 3 ML SYRINGE IVFLUSH (15:27)
[2020-09-15 15:32] VITALS: BP 122/58; PULSE 117; RESP 18; TEMP 36.2; O2SAT 97
[2020-09-15 16:43] LABS: Glucose, Whole Blood 85 mg/dL (60-115)
--- NOTE | 2020-09-15 16:57 | P.PNNP_ITS ---
Subjective Subjective Date of Service: 09/15/20 Interval history: seen and examined. Events noted Scr cont to decr K low this am Physical Exam Vital Signs: Vital Signs: Last Vital Signs Temp 97.2 F 09/15/20 15:32 Pulse 117 H 09/15/20 15:32 Resp 18 09/15/20 15:32 BP 122/58 L 09/15/20 15:32 Pulse Ox 97 09/15/20 15:32 Body Mass Index 20.6 Const: General: no acute distress HENMT: Head: Yes normocephalic and Yes atraumatic Neck: Neck: Yes supple Resp: Auscultation: diminished lung sounds Cardio: Heart sounds: S1 normal heart sound present and S2 normal heart sound present GI: Palpation (GI): Soft to palpation and no guarding Extrem: General: No edema Objective Data Labs CBC & Chem 7: 09/15/20 06:09 09/15/20 06:09 Labs: Laboratory Results - last 24 hr 09/14/20 09/15/20 09/15/20 19:50 06:09 06:09 WBC 7.6 RBC 3.25 L Hgb 8.4 L D Hct 27.6 L D MCV 84.9 MCH 25.8 L MCHC 30.4 L RDW 17.2 H Plt Count 193 MPV 9.0 L Absolute Nucleated RBC 0.000 Nucleated RBC % (auto) 0.0 Sodium 144 Potassium 3.0 L Chloride 109 H Carbon Dioxide 23 Anion Gap 15 BUN 50 H Creatinine 1.58 H Estim Creat Clear Calc 26.9 Estimated GFR 32 POC Glucose 97 Random Glucose 74 Calcium 7.0 L 09/15/20 09/15/20 09/15/20 07:32 08:58 11:34 WBC RBC Hgb Hct MCV MCH MCHC RDW Plt Count MPV Absolute Nucleated RBC Nucleated RBC % (auto) Sodium Potassium Chloride Carbon Dioxide Anion Gap BUN Creatinine Estim Creat Clear Calc Estimated GFR POC Glucose 78 79 115 Random Glucose Calcium 09/15/20 16:38 WBC RBC Hgb Hct MCV MCH MCHC RDW Plt Count MPV Absolute Nucleated RBC Nucleated RBC % (auto) Sodium Potassium Chloride Carbon Dioxide Anion Gap BUN Creatinine Estim Creat Clear Calc Estimated GFR POC Glucose 85 Random Glucose Calcium Microbiology Microbiology Results: Microbiology 09/11/20 17:10 Blood - Venous Blood Culture - Final Proteus mirabilis 09/11/20 16:32 Blood - Venous Blood Culture - Final Proteus mirabilis 09/11/20 18:42 Urine clean catch - Clean Catch Midstream Urine Culture - F inal Proteus species Assessment & Plan Assessment and plan (1) PRIYANKA (acute kidney injury): Status: Acute (2) Metabolic acidosis: Status: Acute Assessment and Plan: 1. PRIYANKA: resolving w IVF c/w dehydration/pre-renal..peak Scr 4.1 2. hypok; getting replaced 3. anemia rec: cont to track renal func, k level and Hb; avoid NToxins Time Spent With Patient Time: Total time spent is greater than 50% in coordination of care (as documented) at patient's floor/unit and/or counseling patient:
[2020-09-15 19:21] VITALS: BP 132/75; PULSE 109; RESP 18; TEMP 36.6; O2SAT 98
[2020-09-15 21:07] LABS: Glucose, Whole Blood 84 mg/dL (60-115)
[2020-09-16 00:15] VITALS: BP 135/82; PULSE 104; RESP 18; TEMP 36.3; O2SAT 99
[2020-09-16] MEDS: cefTRIAXone sodium 1 GM in 0.9 % Sodium Chloride 50 ML IV ×2 (00:26→23:58)
[2020-09-16] MEDS: Doxycycline Hyclate 100 MG in 0.9 % Sodium Chloride 250 ML 166.67 MG IV ×3 (00:26→23:59)
[2020-09-16] MEDS: 0.9 % Sodium Chloride Flush 3 ML SYRINGE IVFLUSH ×4 (00:27→23:59)
[2020-09-16] MEDS: oxyCODONE HCl Immed Release 5 MG TABLET 2.5 MG PO ×3 (00:31→23:58)
[2020-09-16] MEDS: Heparin Sodium,Porcine 5,000 UNIT/ML VIAL 5000 UNIT SUBCUT ×2 (03:12→18:26)
[2020-09-16 05:57] VITALS: BP 120/58; PULSE 111; RESP 18; TEMP 36.4; O2SAT 96
[2020-09-16 06:00] VITALS: BMI 20.1
--- NOTE | 2020-09-16 06:23 | PC.NURSE ---
New area of redness noted to left buttocks on shift assessment. Area measures appx 4''x4'' and is still blanchable. Patient favors laying on left side. Hourly repo and pillows for position.
[2020-09-16 06:57] LABS: Hematocrit 28.7 % (37-47); Hemoglobin 8.7 g/dl (12.0-16.0); Mean Corpuscular HGB Conc 30.3 g/dl (31.0-35.0); Mean Corpuscular Hemoglobin 25.7 pg (27.0-33.0); Mean Corpuscular Volume 84.7 fL (80-98); Mean Platelet Volume 9.5 fL (9.4-12.3); Platelet Count 189 X10*3/uL (160-400); Red Blood Count 3.39 X10*6/uL (4.20-5.50); White Blood Count 9.1 X10*3/uL (4.8-10.8)
[2020-09-16 07:27] LABS: Anion Gap 16 (12-20); Blood Urea Nitrogen 40 mg/dL (9-16); Carbon Dioxide 23 mmol/L (22-29); Chloride 109 mmol/L (96-108); Creatinine Clr Calc Pharmacy 31.9; Estimated Glomerular Filt Rate 40; Glucose Random 65 mg/dL (60-115); Potassium 2.6 mmol/l (3.3-5.1); Sodium 145 mmol/L (135-145)
[2020-09-16 07:49] LABS: Glucose, Whole Blood 79 mg/dL (60-115)
[2020-09-16 08:00] VITALS: BP 131/74; PULSE 120; RESP 18; O2SAT 95
[2020-09-16 11:29] LABS: Glucose, Whole Blood 115 mg/dL (60-115)
--- NOTE | 2020-09-16 11:35 | MHC.CLN ---
F/U PO INTAKE REMAINS POOR 25% DIET RX: 1800 DM-APPROPRIATE AND WILL PROMOTE WT GAIN PT RECEIVING ENSURE BID AND EMPERATRIZ PROVIDES 700KCALS (45% EST KCALS NEEDS), 40G PROTEIN (59% EST PROTEIN NEEDS) WEIGHT UP 124# MONITOR CLOSELY FOLLOWING
[2020-09-16 12:00] VITALS: BP 157/89; PULSE 112; RESP 18; O2SAT 98
[2020-09-16] MEDS: Potassium Chloride Packet 20 MEQ PACKET 40 MEQ PO ×2 (12:44→14:39)
[2020-09-16] MEDS: ondansetron HCL 4 MG/2 ML VIAL IVPUSH (13:38)
[2020-09-16 16:00] VITALS: BP 117/75; PULSE 107; RESP 18; TEMP 36.8; O2SAT 99
[2020-09-16 16:47] LABS: Glucose, Whole Blood 109 mg/dL (60-115)
--- NOTE | 2020-09-16 17:00 | HO.PM.IMPN ---
Subjective Subjective Date of Service: 09/16/20 Interval History: the patient was seen and evaluated this morning Laying in bed, feels comfortable Denies any fever, chills or shortness of breath No reported other overnight events. Systemic review: No fever, chills or weakness No chest pain, palpitation No shortness of breath or coughing No abdominal pain, nausea or vomiting No urinary symptoms No any rash or wounds Physical Exam Vital Signs: Vital Signs: Last Vital Signs Temp 98.2 F 09/16/20 16:00 Pulse 107 H 09/16/20 16:00 Resp 18 09/16/20 16:00 BP 117/75 09/16/20 16:00 Pulse Ox 99 09/16/20 16:00 Body Mass Index 20.1 Constitutional : Alert, oriented to self and place, in mild distress Neck : Normal inspection, Supple Cardiovascular : RRR, S1 S2, no lower extremity edema Respiratory : Good bilateral air entry, no crackles, wheezes or rhonchi Gastrointestinal: soft, lax, Normal bowel sounds, Non tender Skin : Warm/Dry, No rash Neurological : Alert & oriented to place and self, No focal deficit Objective Data Current Medications Generic Name Dose Route Start Last Admin Trade Name Freq PRN Reason Stop Dose Admin Acetaminophen 650 mg 09/12/20 02:22 Acetaminophen 325 Mg Tablet PO Q6H PRN Pain, Mild (Pain Scale 1-3) Docusate Sodium 100 mg 09/12/20 02:22 Docusate Sodium 100 Mg Capsule PO DAILY PRN Constipation Heparin Sodium (Porcine) 5,000 unit 09/12/20 04:00 09/16/20 03:12 Heparin Sodium,Porcine 5,000 Unit/Ml Vial SUBCUT 5,000 unit Q12H MARQUES Administration Doxycycline Hyclate 100 mg/ 250 mls @ 166.67 mls/hr 09/12/20 12:00 09/16/20 13:34 Sodium Chloride IV 166.67 mls/hr Q12H MARQUES Administration Ceftriaxone Sodium 1 gm/ 50 mls @ 100 mls/hr 09/14/20 00:00 09/16/20 00:59 Sodium Chloride IV Infused Q24H MARQUES Infusion Insulin Human Lispro 0 unit 09/12/20 07:30 09/16/20 11:55 Insulin Lispro 100 Unit/Ml 3 Ml Vial SUBCUT Not Given [facility]ACHS [facility] Protocol Magnesium Hydroxide 15 ml 09/12/20 05:17 Milk Of Magnesia 30 Ml Oral.Susp PO BEDTIME PRN Constipation Ondansetron HCl 4 mg 09/12/20 02:22 09/16/20 13:38 Ondansetron Hcl 4 Mg/2 Ml Vial IVPUSH 4 mg Q8H PRN Administration Nausea and Vomiting Oxycodone HCl 2.5 mg 09/12/20 16:37 09/16/20 14:37 Oxycodone Hcl Immed Release 5 Mg Tablet PO 2.5 mg Q4H PRN Administration Pain, Severe (Pain Scale 7-10) Pharmacy Consult 1 each 09/11/20 19:23 Consult Rx Perform Med Rec MISCELLANE ONCE PRN Consult order Pharmacy Consult 1 each 09/12/20 00:47 Consult Rx Vancomycin Dosing MISCELLANE DAILY PRN Consult order Polyethylene Glycol 17 gm 09/12/20 09:00 09/16/20 10:00 Polyethylene Glycol 3350 17 Gm Powd.Pack PO Not Given DAILY MARQUES Senna 8.6 mg 09/12/20 16:38 Sennosides 8.6 Mg Tablet PO BEDTIME PRN constipation Sodium Chloride 3 ml 09/12/20 02:22 09/16/20 09:48 0.9 % Sodium Chloride Flush 3 Ml Syringe IVFLUSH 3 ml QSHIFT MARQUES Administration Labs CBC & Chem 7: 09/16/20 05:44 09/16/20 05:44 Microbiology Microbiology Results: Microbiology 09/11/20 17:10 Blood - Venous Blood Culture - Final Proteus mirabilis 09/11/20 16:32 Blood - Venous Blood Culture - Final Proteus mirabilis 09/11/20 18:42 Urine clean catch - Clean Catch Midstream Urine Culture - Final Proteus species Assessment and Plan (1) Acute UTI: Status: Acute (2) Severe sepsis: Status: Acute (3) Lactic acidosis: Status: Acute (4) Osteomyelitis of sacrum: Status: Acute (5) Acute renal failure: Status: Acute (6) PRIYANKA (acute kidney injury): Status: Acute (7) Metabolic acidosis: Status: Acute (8) Malnutrition of moderate degree: Status: Acute (9) Sepsis: Status: Acute Assessment and Plan: 80-year-old female with both medical history as above who presents to the hospital with increased leukocytosis as well as altered mentation Severe sepsis, resolved Proteus bacteremia Likely secondary to sacral osteomyelitis/UTI Continue doxycycline and ceftriaxone Id input appreciated CT of the pelvis showed gas and concern for osteomyelitis Surgery input appreciated, local care with dressing UTI Urine growing Proteus Continue ceftriaxone Hypokalemia Potassium of 2.6 this morning Replacement given, to follow BMP lactic acidosis Resolved, Secondary to sepsis and using metformin Acute renal failure Improving back to baseline Likely a result of sepsis, dehydration Discontinue IV fluid Appreciate Nephrology evaluation Monitor intake and output Moderate protein malnutrition Add supplement per dietitian recommendation Acute on chronic anemia Hemoglobin improved to 8.4 after 1 unit transfusion No reported source of bleeding Likely dilution with using IV fluid Negative occult blood DVT prophylaxis: Heparin
--- NOTE | 2020-09-16 18:52 | PM.PNNEP ---
Subjective Subjective Date of Service: 09/16/20 Interval history: seen and examiend. events noted Physical Exam Vital Signs: Vital Signs: Last Vital Signs Temp 98.2 F 09/16/20 16:00 Pulse 107 H 09/16/20 16:00 Resp 18 09/16/20 16:00 BP 117/75 09/16/20 16:00 Pulse Ox 99 09/16/20 16:00 Body Mass Index 20.1 Const: General: no acute distress HENMT: Head: Yes normocephalic and Yes atraumatic Neck: Neck: Yes supple Resp: Auscultation: diminished lung sounds Cardio: Heart sounds: S1 normal heart sound present and S2 normal heart sound present GI: Palpation (GI): Soft to palpation and no guarding Extrem: General: No edema Objective Data Labs CBC & Chem 7: 09/16/20 05:44 09/16/20 05:44 Labs: Laboratory Results - last 24 hr 09/15/20 09/16/20 09/16/20 21:03 05:44 05:44 WBC 9.1 RBC 3.39 L Hgb 8.7 L Hct 28.7 L MCV 84.7 MCH 25.7 L MCHC 30.3 L RDW 18.0 H Plt Count 189 MPV 9.5 Absolute Nucleated RBC 0.000 Nucleated RBC % (auto) 0.0 Sodium 145 Potassium 2.6 L Chloride 109 H Carbon Dioxide 23 Anion Gap 16 BUN 40 H Creatinine 1.30 Estim Creat Clear Calc 31.9 Estimated GFR 40 POC Glucose 84 Random Glucose 65 Calcium 7.0 L 09/16/20 09/16/20 09/16/20 07:43 11:22 16:43 WBC RBC Hgb Hct MCV MCH MCHC RDW Plt Count MPV Absolute Nucleated RBC Nucleated RBC % (auto) Sodium Potassium Chloride Carbon Dioxide Anion Gap BUN Creatinine Estim Creat Clear Calc Estimated GFR POC Glucose 79 115 109 Random Glucose Calcium Microbiology Microbiology Results: Microbiology 09/11/20 17:10 Blood - Venous Blood Culture - Final Proteus mirabilis 09/11/20 16:32 Blood - Venous Blood Culture - Final Proteus mirabilis 09/11/20 18:42 Urine clean catch - Clean Catch Midstream Urine Culture - Final Proteus species Assessment & Plan Assessment and plan (1) PRIYANKA (acute kidney injury): Status: Acute (2) Metabolic acidosis: Status: Acute Assessment and Plan: 1. PRIYANKA: resolving w IVF c/w dehydration/pre-renal..peak Scr 4.1 2. hypok; getting replaced 3. anemia rec: no new recs but cont to track renal func, replace k level and Hb; avoid NToxins Time Spent With Patient Time: Total time spent is greater than 50% in coordination of care (as documented) at patient's floor/unit and/or counseling patient:
[2020-09-16 19:43] VITALS: BP 126/70; PULSE 88; RESP 18; TEMP 36.8; O2SAT 98
[2020-09-16 21:20] LABS: Glucose, Whole Blood 179 mg/dL (60-115)
[2020-09-17] VITALS (9 sets, daily range): BP systolic 115–161; BP diastolic 67–89; PULSE 86–130; RESP 16–20; TEMP 36.1–37.1; O2SAT 97–99; BMI 20.2
[2020-09-17] MEDS: Heparin Sodium,Porcine 5,000 UNIT/ML VIAL 5000 UNIT SUBCUT ×2 (03:27→15:30)
[2020-09-17 07:40] LABS: Anion Gap 12 (12-20); Blood Urea Nitrogen 35 mg/dL (9-16); Calcium 7.1 mg/dL (8.4-10.2); Carbon Dioxide 27 mmol/L (22-29); Chloride 109 mmol/L (96-108); Creatinine Clr Calc Pharmacy 37.6; Estimated Glomerular Filt Rate 48; Glucose Random 93 mg/dL (60-115); Sodium 145 mmol/L (135-145)
[2020-09-17 08:34] LABS: Glucose, Whole Blood 112 mg/dL (60-115)
[2020-09-17] MEDS: 0.9 % Sodium Chloride Flush 3 ML SYRINGE IVFLUSH ×2 (11:02→21:50)
[2020-09-17] MEDS: polyethylene glycoL 3350 17 GM POWD.PACK PO (11:02)
[2020-09-17] MEDS: Potassium Chloride Packet 20 MEQ PACKET 40 MEQ PO ×2 (11:02→15:01)
[2020-09-17] MEDS: Doxycycline Hyclate 100 MG in 0.9 % Sodium Chloride 250 ML 166.67 MG IV (11:03)
--- NOTE | 2020-09-17 11:39 | PM.PNNEP ---
Subjective Subjective Date of Service: 09/17/20 Interval history: seen and examiend. events noted Physical Exam Vital Signs: Vital Signs: Last Vital Signs Temp 97.0 F 09/17/20 08:00 Pulse 130 H 09/17/20 08:00 Resp 16 09/17/20 08:00 BP 134/74 09/17/20 08:00 Pulse Ox 97 09/17/20 08:00 Body Mass Index 20.2 Const: General: no acute distress HENMT: Head: Yes normocephalic and Yes atraumatic Neck: Neck: Yes supple Resp: Auscultation: diminished lung sounds Cardio: Heart sounds: S1 normal heart sound present and S2 normal heart sound present GI: Palpation (GI): Soft to palpation and no guarding Extrem: General: No edema Objective Data Labs CBC & Chem 7: 09/16/20 05:44 09/17/20 05:42 Labs: Laboratory Results - last 24 hr 09/16/20 09/16/20 09/17/20 16:43 21:17 05:15 Sodium Potassium Chloride Carbon Dioxide Anion Gap BUN Creatinine Estim Creat Clear Calc Estimated GFR POC Glucose 109 179 H Random Glucose Calcium Ur Random Sodium 42.0 09/17/20 09/17/20 05:42 08:32 Sodium 145 Potassium 3.0 L Chloride 109 H Carbon Dioxide 27 Anion Gap 12 BUN 35 H Creatinine 1.11 Estim Creat Clear Calc 37.6 Estimated GFR 48 POC Glucose 112 Random Glucose 93 D Calcium 7.1 L Ur Random Sodium Microbiology Microbiology Results: Microbiology 09/11/20 17:10 Blood - Venous Blood Culture - Final Proteus mirabilis 09/11/20 16:32 Blood - Venous Blood Culture - Final Proteus mirabilis 09/11/20 18:42 Urine clean catch - Clean Catch Midstream Urine Culture - Final Proteus species Assessment & Plan Assessment and plan (1) PRIYANKA (acute kidney injury): Status: Acute (2) Metabolic acidosis: Status: Acute Assessment and Plan: 1. PRIYANKA: resolved w IVF c/w dehydration/pre-renal..peak Scr 4.1 2. hypok; getting replaced 3. anemia rec: replace k level and track Hb; check Fe stores; avoid NToxins Time Spent With Patient Time: Total time spent is greater than 50% in coordination of care (as documented) at patient's floor/unit and/or counseling patient:
[2020-09-17 11:42] LABS: Glucose, Whole Blood 148 mg/dL (60-115)
[2020-09-17] MEDS: Metoprolol Tartrate 50 MG TABLET PO ×2 (12:36→21:50)
[2020-09-17] MEDS: oxyCODONE HCl Immed Release 5 MG TABLET 2.5 MG PO (14:59)
[2020-09-17] MEDS: Acetaminophen 325 MG TABLET 650 MG PO (15:16)
--- NOTE | 2020-09-17 15:33 | P.PNIM_ITS ---
Subjective Subjective Date of Service: 09/17/20 Interval History: Interval History: the patient was seen and evaluated this morning Laying in bed, feels tired and weak Denies any fever, chills or shortness of breath No reported other overnight events. Systemic review: No fever, chills or weakness No chest pain, reports episodes of palpitations No shortness of breath or coughing No abdominal pain, nausea or vomiting No urinary symptoms No any rash or wounds Physical Exam Vital Signs: Vital Signs: Last Vital Signs Temp 97.4 F 09/17/20 11:49 Pulse 129 H 09/17/20 12:36 Resp 18 09/17/20 11:49 BP 156/89 H 09/17/20 12:36 Pulse Ox 98 09/17/20 11:49 Body Mass Index 20.2 Constitutional : Alert, oriented to self and place, in mild distress Neck : Normal inspection, Supple Cardiovascular : Tachycardia, RRR, S1 S2, no lower extremity edema Respiratory : Good bilateral air entry, no crackles, wheezes or rhonchi Gastrointestinal: soft, lax, Normal bowel sounds, Non tender Skin : Warm/Dry, No rash, sacral wound covered with dressing Neurological : Alert & oriented to place and self, No focal deficit Objective Data Current Medications Generic Name Dose Route Start Last Admin Trade Name Freq PRN Reason Stop Dose Admin Acetaminophen 650 mg 09/12/20 02:22 09/17/20 15:16 Acetaminophen 325 Mg Tablet PO 650 mg Q6H PRN Administration Pain, Mild (Pain Scale 1-3) Docusate Sodium 100 mg 09/12/20 02:22 Docusate Sodium 100 Mg Capsule PO DAILY PRN Constipation Heparin Sodium (Porcine) 5,000 unit 09/12/20 04:00 09/17/20 15:30 Heparin Sodium,Porcine 5,000 Unit/Ml Vial SUBCUT 5,000 unit Q12H MARQUES Administration Doxycycline Hyclate 100 mg/ 250 mls @ 166.67 mls/hr 09/12/20 12:00 09/17/20 12:36 Sodium Chloride IV Infused Q12H MARQUES Infusion Ceftriaxone Sodium 1 gm/ 50 mls @ 100 mls/hr 09/14/20 00:00 09/17/20 00:33 Sodium Chloride IV Infused Q24H MARQUES Infusion Potassium Chloride 40 meq/ 1,020 mls @ 60 mls/hr 09/17/20 12:02 09/17/20 12:33 Sodium Chloride IVCONT 09/18/20 11:00 100 mls/hr .Q17H MARQUES Administration Insulin Human Lispro 0 unit 09/12/20 07:30 09/17/20 12:28 Insulin Lispro 100 Unit/Ml 3 Ml Vial SUBCUT Not Given QIDACHS [facility] Protocol Magnesium Hydroxide 15 ml 09/12/20 05:17 Milk Of Magnesia 30 Ml Oral.Susp PO BEDTIME PRN Constipation Metoprolol Tartrate 50 mg 09/17/20 12:05 09/17/20 12:36 Metoprolol Tartrate 50 Mg Tablet PO 50 mg BID MARQUES Administration Protocol Ondansetron HCl 4 mg 09/12/20 02:22 09/16/20 13:38 Ondansetron Hcl 4 Mg/2 Ml Vial IVPUSH 4 mg Q8H PRN Administration Nausea and Vomiting Oxycodone HCl 2.5 mg 09/12/20 16:37 09/17/20 14:59 Oxycodone Hcl Immed Release 5 Mg Tablet PO 2.5 mg Q4H PRN Administration Pain, Severe (Pain Scale 7-10) Pharmacy Consult 1 each 09/11/20 19:23 Consult Rx Perform Med Rec MISCELLANE ONCE PRN Consult order Pharmacy Consult 1 each 09/12/20 00:47 Consult Rx Vancomycin Dosing MISCELLANE DAILY PRN Consult order Polyethylene Glycol 17 gm 09/12/20 09:00 09/17/20 11:02 Polyethylene Glycol 3350 17 Gm Powd.Pack PO 17 gm DAILY MARQUES Administration Senna 8.6 mg 09/12/20 16:38 Sennosides 8.6 Mg Tablet PO BEDTIME PRN constipation Sodium Chloride 3 ml 09/12/20 02:22 09/17/20 15:21 0.9 % Sodium Chloride Flush 3 Ml Syringe IVFLUSH Not Given QSHIFT [facility] Labs CBC & Chem 7: 09/16/20 05:44 09/17/20 05:42 Microbiology Microbiology Results: Microbiology 09/11/20 17:10 Blood - Venous Blood Culture - Final Proteus mirabilis 09/11/20 16:32 Blood - Venous Blood Culture - Final Proteus mirabilis 09/11/20 18:42 Urine clean catch - Clean Catch Midstream Urine Culture - Final Proteus species Assessment and Plan (1) Acute UTI: Status: Acute (2) Severe sepsis: Status: Acute (3) Lactic acidosis: Status: Acute (4) Osteomyelitis of sacrum: Status: Acute (5) Acute renal failure: Status: Acute (6) PRIYANKA (acute kidney injury): Status: Acute (7) Metabolic acidosis: Status: Acute (8) Malnutrition of moderate degree: Status: Acute (9) Sepsis: Status: Acute Assessment and Plan: 80-year-old female with both medical history as above who presents to the hospital with increased leukocytosis as well as altered mentation Severe sepsis, resolved Proteus bacteremia Likely secondary to sacral osteomyelitis/UTI Continue doxycycline and ceftriaxone Id input appreciated CT of the pelvis showed gas and concern for osteomyelitis Plan to dc on oral Abx, to discuss with ID Surgery input appreciated, local care with dressing UTI Urine growing Proteus Continue ceftriaxone Hypokalemia Potassium of 3 this morning Replacement given, to follow BMP lactic acidosis Resolved, Secondary to sepsis and using metformin Acute renal failure Improving back to baseline Likely a result of sepsis, dehydration Discontinue IV fluid Appreciate Nephrology evaluation Monitor intake and output Moderate protein malnutrition Add supplement per dietitian recommendation Acute on chronic anemia Hemoglobin improved to 8.4 after 1 unit transfusion No reported source of bleeding Likely dilution with using IV fluid Negative occult blood DVT prophylaxis: Heparin
--- NOTE | 2020-09-17 16:24 | PC.NURSE ---
Assessed pt. Wanted to repo patient at this time. Pt is refusing at this time. did some ROM with her legs but very minimal as patient is stating its too painful. I asked if I could come back to continue she said maybe later Pt is laying mostly on left side- encouraged pt to go on right. Educated patient that not moving and repositioning is bad for her current wounds and wound care. She is stating she is not moving at this time. I gave prn oxicodone and Tylenol to lessen her pain with movement. When I went to re-assess patient she said pain medicine worked somewhat. Asked if I could repo pt at this time as it may be less painful - refused. Will try at a later time and report to oncoming RN.
[2020-09-17] MEDS: Insulin Lispro 100 UNIT/ML 3 ML VIAL SUBCUT (17:20)
[2020-09-17 18:22] LABS: Glucose, Whole Blood 186 mg/dL (60-115)
[2020-09-17 21:46] LABS: Glucose, Whole Blood 142 mg/dL (60-115)
[2020-09-17] MEDS: ondansetron HCL 4 MG/2 ML VIAL IVPUSH (21:50)
[2020-09-18] VITALS (8 sets, daily range): BP systolic 110–144; BP diastolic 57–87; PULSE 81–101; RESP 18–20; TEMP 36.3–36.8; O2SAT 98–100
[2020-09-18] MEDS: cefTRIAXone sodium 1 GM in 0.9 % Sodium Chloride 50 ML IV (00:41)
[2020-09-18] MEDS: oxyCODONE HCl Immed Release 5 MG TABLET 2.5 MG PO (00:42)
[2020-09-18] MEDS: 0.9 % Sodium Chloride Flush 3 ML SYRINGE IVFLUSH ×2 (00:43→16:05)
[2020-09-18] MEDS: Doxycycline Hyclate 100 MG in 0.9 % Sodium Chloride 250 ML 166.67 MG IV ×2 (02:10→13:31)
[2020-09-18] MEDS: Heparin Sodium,Porcine 5,000 UNIT/ML VIAL 5000 UNIT SUBCUT ×2 (06:22→16:02)
[2020-09-18 07:48] LABS: Glucose, Whole Blood 92 mg/dL (60-115)
[2020-09-18] MEDS: ondansetron HCL 4 MG/2 ML VIAL IVPUSH (09:55)
[2020-09-18] MEDS: Metoprolol Tartrate 50 MG TABLET PO ×2 (09:56→21:16)
--- NOTE | 2020-09-18 10:51 | MHC.CM.PN ---
The goal for dc is for Patient to return to [facility].Patient is receiving IV Ceftriaxone and IV Doxycycline for UTI/Sepsis and per MD in [place], ID consult is pending to determine ABT upon dc. CM will continue to follow for dc planning and possible need to adjust the dc plan.
[2020-09-18 11:27] LABS: Glucose, Whole Blood 101 mg/dL (60-115)
--- NOTE | 2020-09-18 12:13 | PM.PNNEP ---
Subjective Subjective Date of Service: 09/18/20 Interval history: seen and examined no complaints Physical Exam Vital Signs: Vital Signs: Last Vital Signs Temp 98.2 F 09/18/20 11:37 Pulse 88 09/18/20 11:37 Resp 18 09/18/20 11:37 BP 116/57 L 09/18/20 11:37 Pulse Ox 99 09/18/20 11:37 Body Mass Index 20.2 Const: General: no acute distress HENMT: Head: Yes normocephalic and Yes atraumatic Neck: Neck: Yes supple Resp: Auscultation: diminished lung sounds Cardio: Heart sounds: S1 normal heart sound present and S2 normal heart sound present GI: Palpation (GI): Soft to palpation and nontender Objective Data Labs CBC & Chem 7: 09/16/20 05:44 09/17/20 05:42 Labs: Laboratory Results - last 24 hr 09/17/20 09/17/20 09/18/20 17:07 21:42 07:43 POC Glucose 186 H 142 H 92 09/18/20 11:22 POC Glucose 101 Microbiology Microbiology Results: Microbiology 09/11/20 17:10 Blood - Venous Blood Culture - Final Proteus mirabilis 09/11/20 16:32 Blood - Venous Blood Culture - Final Proteus mirabilis 09/11/20 18:42 Urine clean catch - Clean Catch Midstream Urine Culture - Final Proteus species Assessment & Plan Assessment and plan (1) PRIYANKA (acute kidney injury): Status: Acute (2) Metabolic acidosis: Status: Acute (3) Hypokalemia: Status: Acute Assessment and Plan: kidney function normalizing PRIYANKA due to septic and ischemic acute tubular injury hypotensive earlier CT scan negative for obstruction normal baseline kidney function REC replace potassium follow kidney function and electrolytes Time Spent With Patient Time: Total time spent is greater than 50% in coordination of care (as documented) at patient's floor/unit and/or counseling patient:
[2020-09-18] MEDS: oxyCODONE HCl Immed Release 5 MG TABLET PO (13:30)
--- NOTE | 2020-09-18 13:42 | MHC.CLN ---
F/U PO INTAKE 25-50%, NOTED ATE 100% TODAY AT BREAKFAST DIET RX: 1800 DM-WILL LIBERALIZE TO OFFER MORE VARIETY PT RECEIVING ENSURE BID AND EMPERATRIZ PROVIDES 700KCALS (45% EST KCALS NEEDS), 40G PROTEIN (59% EST PROTEIN NEEDS) WEIGHT UP 125# MONITOR CLOSELY FOLLOWING
--- NOTE | 2020-09-18 14:06 | P.PNIM_ITS ---
Subjective Subjective Date of Service: 09/18/20 Interval History: the patient was seen and evaluated this morning Laying in bed, looks comfortable and more alert, feels tired and weak Denies any fever, chills or shortness of breath No reported other overnight events. Systemic review: No fever, chills but reports generalized weakness No chest pain, reports episodes of palpitations No shortness of breath or coughing No abdominal pain, nausea or vomiting No urinary symptoms No any rash or wounds Physical Exam Vital Signs: Vital Signs: Last Vital Signs Temp 98.2 F 09/18/20 11:37 Pulse 88 09/18/20 11:37 Resp 18 09/18/20 11:37 BP 116/57 L 09/18/20 11:37 Pulse Ox 99 09/18/20 11:37 Body Mass Index 20.2 Constitutional : Alert, oriented to self and place, in mild distress Neck : Normal inspection, Supple Cardiovascular : Tachycardia, RRR, S1 S2, no lower extremity edema Respiratory : Good bilateral air entry, no crackles, wheezes or rhonchi Gastrointestinal: soft, lax, Normal bowel sounds, Non tender Skin : Warm/Dry, No rash, sacral wound covered with dressing Neurological : Alert & oriented to place and self, No focal deficit Objective Data Current Medications Generic Name Dose Route Start Last Admin Trade Name Freq PRN Reason Stop Dose Admin Acetaminophen 650 mg 09/12/20 02:22 09/17/20 15:16 Acetaminophen 325 Mg Tablet PO 650 mg Q6H PRN Administration Pain, Mild (Pain Scale 1-3) Docusate Sodium 100 mg 09/12/20 02:22 Docusate Sodium 100 Mg Capsule PO DAILY PRN Constipation Heparin Sodium (Porcine) 5,000 unit 09/12/20 04:00 09/18/20 06:22 Heparin Sodium,Porcine 5,000 Unit/Ml Vial SUBCUT 5,000 unit Q12H [facility] Administration Doxycycline Hyclate 100 mg/ 250 mls @ 166.67 mls/hr 09/12/20 12:00 09/18/20 13:31 Sodium Chloride IV 166.67 mls/hr Q12H [facility] Administration Ceftriaxone Sodium 1 gm/ 50 mls @ 100 mls/hr 09/14/20 00:00 09/18/20 02:24 Sodium Chloride IV Infused Q24H [facility] Infusion Insulin Human Lispro 0 unit 09/12/20 07:30 09/18/20 13:18 Insulin Lispro 100 Unit/Ml 3 Ml Vial SUBCUT Not Given QIDACHS [facility] Protocol Magnesium Hydroxide 15 ml 09/12/20 05:17 Milk Of Magnesia 30 Ml Oral.Susp PO BEDTIME PRN Constipation Metoclopramide HCl 5 mg 09/18/20 10:09 Metoclopramide Hcl 5 Mg Tablet PO TIDAC PRN Nausea Metoprolol Tartrate 50 mg 09/17/20 12:05 09/18/20 09:56 Metoprolol Tartrate 50 Mg Tablet PO 50 mg BID [facility] Administration Protocol Ondansetron HCl 4 mg 09/12/20 02:22 09/18/20 09:55 Ondansetron Hcl 4 Mg/2 Ml Vial IVPUSH 4 mg Q8H PRN Administration Nausea and Vomiting Oxycodone HCl 5 mg 09/18/20 10:19 09/18/20 13:30 Oxycodone Hcl Immed Release 5 Mg Tablet PO 5 mg Q4H PRN Administration Pain, Severe (Pain Scale 7-10) Pharmacy Consult 1 each 09/11/20 19:23 Consult Rx Perform Med Rec MISCELLANE ONCE PRN Consult order Pharmacy Consult 1 each 09/12/20 00:47 Consult Rx Vancomycin Dosing MISCELLANE DAILY PRN Consult order Polyethylene Glycol 17 gm 09/12/20 09:00 09/18/20 09:57 Polyethylene Glycol 3350 17 Gm Powd.Pack PO Not Given DAILY [facility] Senna 8.6 mg 09/12/20 16:38 Sennosides 8.6 Mg Tablet PO BEDTIME PRN constipation Sodium Chloride 3 ml 09/12/20 02:22 09/18/20 00:43 0.9 % Sodium Chloride Flush 3 Ml Syringe IVFLUSH 3 ml QSHIFT [facility] Administration Labs CBC & Chem 7: 09/16/20 05:44 09/17/20 05:42 Microbiology Microbiology Results: Microbiology 09/11/20 17:10 Blood - Venous Blood Culture - Final Proteus mirabilis 09/11/20 16:32 Blood - Venous Blood Culture - Final Proteus mirabilis 09/11/20 18:42 Urine clean catch - Clean Catch Midstream Urine Culture - Final Proteus species Assessment and Plan (1) Acute UTI: Status: Acute (2) Severe sepsis: Status: Acute (3) Lactic acidosis: Status: Acute (4) Osteomyelitis of sacrum: Status: Acute (5) Acute renal failure: Status: Acute (6) PRIYANKA (acute kidney injury): Status: Acute (7) Metabolic acidosis: Status: Acute (8) Malnutrition of moderate degree: Status: Acute (9) Sepsis: Status: Acute Assessment and Plan: 80-year-old female with both medical history as above who presents to the hospital with increased leukocytosis as well as altered mentation Severe sepsis, resolved Proteus bacteremia Likely secondary to sacral osteomyelitis/UTI Continue doxycycline and ceftriaxone CT of the pelvis showed gas and concern for osteomyelitis Surgery input appreciated, local care with dressing Pending ID evaluation for discharge plan, likely DC on oral antibiotic UTI Urine growing Proteus Continue ceftriaxone Hypokalemia Potassium of 3 this morning Replacement given, to follow BMP Physical deconditioning To check PT evaluation lactic acidosis Resolved, Secondary to sepsis and using metformin Acute renal failure Improving back to baseline Likely a result of sepsis, dehydration Discontinue IV fluid Appreciate Nephrology evaluation Monitor intake and output Moderate protein malnutrition Add supplement per dietitian recommendation Acute on chronic anemia Hemoglobin improved to 8.4 after 1 unit transfusion No reported source of bleeding Likely dilution with using IV fluid Negative occult blood DVT prophylaxis: Heparin
[2020-09-18] MEDS: Potassium Chloride Packet 20 MEQ PACKET 40 MEQ PO (16:04)
[2020-09-18] MEDS: Acetaminophen 325 MG TABLET 650 MG PO (16:14)
[2020-09-18 16:32] LABS: Glucose, Whole Blood 93 mg/dL (60-115)
[2020-09-18 17:25] LABS: Anion Gap 12 (12-20); Blood Urea Nitrogen 32 mg/dL (9-16); Calcium 6.8 mg/dL (8.4-10.2); Carbon Dioxide 25 mmol/L (22-29); Chloride 112 mmol/L (96-108); Creatinine Clr Calc Pharmacy 39.8; Estimated Glomerular Filt Rate 51; Glucose Random 102 mg/dL (60-115); Iron 47 mcg/dL (30-160); Percent Iron Saturation 44 % (15-50); Sodium 145 mmol/L (135-145); Total Iron Binding Capacity 107 mcg/dL (228-428); Unsaturated Iron Binding 60 ug/dL
[2020-09-18 17:33] LABS: Potassium 4.3 mmol/l (3.3-5.1)
[2020-09-18 20:12] LABS: Glucose, Whole Blood 110 mg/dL (60-115)
--- NOTE | 2020-09-18 21:22 | PM.EVENT ---
Event Note Date of Service: 09/18/20 Event Note: osteomyelitis sacrum bacteremia urine infection Proteus and MSSA wound 6 weeks IV Ceftiaxone and po Doxycycline 2-3 months cover osteomyelitis
[2020-09-19] MEDS: 0.9 % Sodium Chloride Flush 3 ML SYRINGE IVFLUSH ×4 (00:18→23:35)
[2020-09-19] MEDS: cefTRIAXone sodium 1 GM in 0.9 % Sodium Chloride 50 ML IV ×2 (00:18→23:35)
[2020-09-19] MEDS: oxyCODONE HCl Immed Release 5 MG TABLET PO ×3 (00:30→14:54)
[2020-09-19] MEDS: Doxycycline Hyclate 100 MG in 0.9 % Sodium Chloride 250 ML 166.67 MG IV ×2 (00:57→14:21)
[2020-09-19 04:00] VITALS: BP 116/79; PULSE 91; RESP 18; TEMP 36.6; O2SAT 99
[2020-09-19] MEDS: Heparin Sodium,Porcine 5,000 UNIT/ML VIAL 5000 UNIT SUBCUT ×2 (04:19→16:08)
[2020-09-19 06:00] VITALS: BMI 20.2
[2020-09-19 06:50] LABS: Hematocrit 28.9 % (37-47); Hemoglobin 8.8 g/dl (12.0-16.0); Mean Corpuscular HGB Conc 30.4 g/dl (31.0-35.0); Mean Corpuscular Hemoglobin 25.7 pg (27.0-33.0); Mean Corpuscular Volume 84.5 fL (80-98); Mean Platelet Volume 9.6 fL (9.4-12.3); Platelet Count 216 X10*3/uL (160-400); Red Blood Count 3.42 X10*6/uL (4.20-5.50); Red Cell Distribution Width 19.3 % (11.0-16.0); White Blood Count 8.1 X10*3/uL (4.8-10.8)
[2020-09-19 07:24] LABS: Anion Gap 14 (12-20); Blood Urea Nitrogen 31 mg/dL (9-16); Calcium 6.7 mg/dL (8.4-10.2); Carbon Dioxide 22 mmol/L (22-29); Chloride 113 mmol/L (96-108); Creatinine Clr Calc Pharmacy 41.7; Estimated Glomerular Filt Rate 54; Glucose Random 89 mg/dL (60-115); Potassium 4.1 mmol/l (3.3-5.1); Sodium 145 mmol/L (135-145)
[2020-09-19 07:59] VITALS: BP 141/81; PULSE 102; RESP 18; TEMP 36.9; O2SAT 99
[2020-09-19 08:00] LABS: Glucose, Whole Blood 86 mg/dL (60-115)
[2020-09-19] MEDS: Metoclopramide HCl 5 MG TABLET PO (09:53)
[2020-09-19] MEDS: Metoprolol Tartrate 50 MG TABLET PO ×2 (09:54→20:22)
[2020-09-19 10:29] LABS: INTERNATIONAL NORM RATIO 1.4 (0.9-1.1); Prothrombin Time 16.8 SEC (10.8-13.0)
[2020-09-19 11:50] LABS: Glucose, Whole Blood 112 mg/dL (60-115)
[2020-09-19 12:00] VITALS: BP 133/71; PULSE 80; RESP 18; TEMP 36.2; O2SAT 99
--- NOTE | 2020-09-19 15:01 | HO.PM.IMPN ---
Subjective Subjective Date of Service: 09/19/20 Interval History: the patient was seen and evaluated this morning Laying in bed, looks comfortable and more alert, feels tired and weak Denies any fever, chills or shortness of breath No reported other overnight events. Systemic review: No fever, chills but reports generalized weakness No chest pain, reports episodes of palpitations No shortness of breath or coughing No abdominal pain, nausea or vomiting No urinary symptoms No any rash or wounds Physical Exam Vital Signs: Vital Signs: Last Vital Signs Temp 97.1 F 09/19/20 12:00 Pulse 80 09/19/20 12:00 Resp 18 09/19/20 12:00 BP 133/71 09/19/20 12:00 Pulse Ox 99 09/19/20 12:00 Body Mass Index 20.2 Constitutional : Alert, oriented to self and place, in mild distress Neck : Normal inspection, Supple Cardiovascular : Tachycardia, RRR, S1 S2, no lower extremity edema Respiratory : Good bilateral air entry, no crackles, wheezes or rhonchi Gastrointestinal: soft, lax, Normal bowel sounds, Non tender Skin : Warm/Dry, No rash, sacral wound covered with dressing Neurological : Alert & oriented to place and self, No focal deficit Objective Data Current Medications Generic Name Dose Route Start Last Admin Trade Name Freq PRN Reason Stop Dose Admin Acetaminophen 650 mg 09/12/20 02:22 09/18/20 16:14 Acetaminophen 325 Mg Tablet PO 650 mg Q6H PRN Administration Pain, Mild (Pain Scale 1-3) Docusate Sodium 100 mg 09/12/20 02:22 Docusate Sodium 100 Mg Capsule PO DAILY PRN Constipation Heparin Sodium (Porcine) 5,000 unit 09/12/20 04:00 09/19/20 04:19 Heparin Sodium,Porcine 5,000 Unit/Ml Vial SUBCUT 5,000 unit Q12H [facility] Administration Doxycycline Hyclate 100 mg/ 250 mls @ 166.67 mls/hr 09/12/20 12:00 09/19/20 14:21 Sodium Chloride IV 166.67 mls/hr Q12H [facility] Administration Ceftriaxone Sodium 1 gm/ 50 mls @ 100 mls/hr 09/14/20 00:00 09/19/20 00:48 Sodium Chloride IV Infused Q24H [facility] Infusion Insulin Human Lispro 0 unit 09/12/20 07:30 09/19/20 13:06 Insulin Lispro 100 Unit/Ml 3 Ml Vial SUBCUT Not Given QIDACHS [facility] Protocol Magnesium Hydroxide 15 ml 09/12/20 05:17 Milk Of Magnesia 30 Ml Oral.Susp PO BEDTIME PRN Constipation Metoclopramide HCl 5 mg 09/18/20 10:09 09/19/20 09:53 Metoclopramide Hcl 5 Mg Tablet PO 5 mg TIDAC PRN Administration Nausea Metoprolol Tartrate 50 mg 09/17/20 12:05 09/19/20 09:54 Metoprolol Tartrate 50 Mg Tablet PO 50 mg BID [facility] Administration Protocol Ondansetron HCl 4 mg 09/12/20 02:22 09/18/20 09:55 Ondansetron Hcl 4 Mg/2 Ml Vial IVPUSH 4 mg Q8H PRN Administration Nausea and Vomiting Oxycodone HCl 5 mg 09/18/20 10:19 09/19/20 14:54 Oxycodone Hcl Immed Release 5 Mg Tablet PO 5 mg Q4H PRN Administration Pain, Severe (Pain Scale 7-10) Pharmacy Consult 1 each 09/11/20 19:23 Consult Rx Perform Med Rec MISCELLANE ONCE PRN Consult order Polyethylene Glycol 17 gm 09/12/20 09:00 09/19/20 09:56 Polyethylene Glycol 3350 17 Gm Powd.Pack PO Not Given DAILY [facility] Senna 8.6 mg 09/12/20 16:38 Sennosides 8.6 Mg Tablet PO BEDTIME PRN constipation Sodium Chloride 3 ml 09/12/20 02:22 09/19/20 09:55 0.9 % Sodium Chloride Flush 3 Ml Syringe IVFLUSH 3 ml QSHIFT [facility] Administration Labs CBC & Chem 7: 09/19/20 06:12 09/19/20 06:12 Microbiology Microbiology Results: Microbiology 09/11/20 17:10 Blood - Venous Blood Culture - Final Proteus mirabilis 09/11/20 16:32 Blood - Venous Blood Culture - Final Proteus mirabilis 09/11/20 18:42 Urine clean catch - Clean Catch Midstream Urine Culture - Final Proteus species Assessment and Plan (1) Acute UTI: Status: Acute (2) Severe sepsis: Status: Acute (3) Lactic acidosis: Status: Acute (4) Osteomyelitis of sacrum: Status: Acute (5) Acute renal failure: Status: Acute (6) PRIYANKA (acute kidney injury): Status: Acute (7) Metabolic acidosis: Status: Acute (8) Malnutrition of moderate degree: Status: Acute (9) Sepsis: Status: Acute Assessment and Plan: 80-year-old female with both medical history as above who presents to the hospital with increased leukocytosis as well as altered mentation Severe sepsis, resolved Proteus bacteremia secondary to sacral osteomyelitis/UTI Continue doxycycline and ceftriaxone CT of the pelvis showed gas and concern for osteomyelitis Surgery input appreciated, local care with dressing Id input appreciated, finish 6 weeks of IV ceftriaxone and p.o. doxycycline To place a PICC line today Discharge planning for SNF tomorrow UTI Urine growing Proteus Continue ceftriaxone Hypokalemia Resolved Replacement given Physical deconditioning PT evaluation lactic acidosis Resolved, Secondary to sepsis and using metformin Acute renal failure Improving back to baseline Likely a result of sepsis, dehydration Discontinue IV fluid Appreciate Nephrology evaluation Monitor intake and output Moderate protein malnutrition Add supplement per dietitian recommendation Acute on chronic anemia Hemoglobin improved to 8.4 after 1 unit transfusion No reported source of bleeding Likely dilution with using IV fluid Negative occult blood DVT prophylaxis: Heparin
--- NOTE | 2020-09-19 15:39 | W.MHC.ACPN ---
Advanced Care Planning Note Advanced Care Planning Note Discussed with: patient Time spent (in minutes): 18 Narrative: I had a chance to meet with the patient is here today to discuss current hospital stay and advanced directive. She was admitted to the hospital for treatment of encephalopathy, severe sepsis and acute kidney injury. She was found to have osteomyelitis in the sacral area complicated by bacteremia treated with IV antibiotics with plan to be discharged on long-term antibiotics IV. We discussed the current plan of treatment as the patient require PICC line and long-term antibiotic. She feels very tired of treatment and she does not think she will tolerate 6 weeks of antibiotic specially with symptoms ulcer associated to it including nausea. I explained to her that the only way to give her a chance of recovery is by receiving antibiotics as explained and to be administered home through a PICC line. The patient was not sure what she wants to do and she would like to discuss with family about the care plan. We also discussed goals of cares. The patient would like to improve both physically and mentally and she does not want to anytime soon. She would like to remain as full code for the time being. Problems Discussed (1) Osteomyelitis of sacrum: (2) Acute UTI: (3) Severe sepsis: (4) Lactic acidosis: (5) Acute renal failure: (6) PRIYANKA (acute kidney injury): (7) Metabolic acidosis: (8) Malnutrition of moderate degree: (9) Sepsis:
[2020-09-19 16:00] VITALS: BP 113/59; PULSE 79; RESP 19; TEMP 36; O2SAT 100
[2020-09-19] MEDS: Acetaminophen 325 MG TABLET 650 MG PO (16:09)
[2020-09-19 16:39] LABS: Glucose, Whole Blood 111 mg/dL (60-115)
[2020-09-19 19:15] VITALS: BP 140/84; PULSE 60; RESP 19; TEMP 36; O2SAT 100
[2020-09-19 20:01] LABS: Glucose, Whole Blood 108 mg/dL (60-115)
[2020-09-19 20:22] VITALS: BP 140/84; PULSE 87
[2020-09-20] VITALS (8 sets, daily range): BP systolic 105–141; BP diastolic 59–79; PULSE 73–95; RESP 17–19; TEMP 35.6–36.6; O2SAT 99–100; BMI 19.2
[2020-09-20] MEDS: oxyCODONE HCl Immed Release 5 MG TABLET PO ×4 (00:41→19:39)
[2020-09-20] MEDS: Doxycycline Hyclate 100 MG in 0.9 % Sodium Chloride 250 ML 166.67 MG IV ×2 (00:41→11:58)
[2020-09-20] MEDS: Heparin Sodium,Porcine 5,000 UNIT/ML VIAL 5000 UNIT SUBCUT ×2 (05:12→15:29)
[2020-09-20 08:01] LABS: Glucose, Whole Blood 70 mg/dL (60-115)
[2020-09-20] MEDS: Metoprolol Tartrate 50 MG TABLET PO ×2 (08:47→21:50)
[2020-09-20] MEDS: ondansetron HCL 4 MG/2 ML VIAL IVPUSH (08:47)
[2020-09-20] MEDS: polyethylene glycoL 3350 17 GM POWD.PACK PO (08:48)
[2020-09-20] MEDS: 0.9 % Sodium Chloride Flush 3 ML SYRINGE IVFLUSH ×2 (08:53→15:30)
--- NOTE | 2020-09-20 10:50 | MHC.CLN ---
F/U PO INTAKE SLIGHTLY IMPROVED 50% AVG DIET RX: 2200 DM-LIBERALIZED PT RECEIVING ENSURE BID AND EMPERATRIZ PROVIDES 700KCALS (45% EST KCALS NEEDS), 40G PROTEIN (59% EST PROTEIN NEEDS) WEIGHT DOWN 118# BUT REMAINS UP OVERALL SINCE ADMISSION; NOTED BLE EDEMA FOLLOWING
--- NOTE | 2020-09-20 11:06 | MHC.CM.PN ---
Patient will need a PICC for LT IVABT with the goal of returning to [facility] to receive the IVABT.CM will continue to follow for dc planning and possible need to adjust the dc plan.
--- NOTE | 2020-09-20 11:17 | PC.NURSE ---
Pt refused to allow this nurse to change wound dressings this morning, stating I am tired and don't want it done right now. Pt educated on the importance of changing dressings in order to keep wounds clean and aid in the healing process, pt continued to refuse.
[2020-09-20 11:50] LABS: Glucose, Whole Blood 78 mg/dL (60-115)
--- NOTE | 2020-09-20 12:47 | P.PNIM_ITS ---
Subjective Subjective Date of Service: 09/20/20 Interval History: the patient was seen and evaluated this morning Laying in bed, looks comfortable and more alert, feels better overall Denies any fever, chills or shortness of breath No reported other overnight events. Systemic review: No fever, chills but reports generalized weakness No chest pain, reports episodes of palpitations No shortness of breath or coughing No abdominal pain, nausea or vomiting No urinary symptoms No any rash or wounds Physical Exam Vital Signs: Vital Signs: Last Vital Signs Temp 97 F 09/20/20 11:16 Pulse 78 09/20/20 11:16 Resp 18 09/20/20 11:16 BP 129/75 09/20/20 11:16 Pulse Ox 100 09/20/20 11:16 Body Mass Index 19.2 Constitutional : Alert, oriented to self and place, in mild distress Neck : Normal inspection, Supple Cardiovascular : Tachycardia, RRR, S1 S2, no lower extremity edema Respiratory : Good bilateral air entry, no crackles, wheezes or rhonchi Gastrointestinal: soft, lax, Normal bowel sounds, Non tender Skin : Warm/Dry, No rash, sacral wound covered with dressing Neurological : Alert & oriented to place and self, No focal deficit Objective Data Current Medications Generic Name Dose Route Start Last Admin Trade Name Freq PRN Reason Stop Dose Admin Acetaminophen 650 mg 09/12/20 02:22 09/19/20 16:09 Acetaminophen 325 Mg Tablet PO 650 mg Q6H PRN Administration Pain, Mild (Pain Scale 1-3) Docusate Sodium 100 mg 09/12/20 02:22 Docusate Sodium 100 Mg Capsule PO DAILY PRN Constipation Heparin Sodium (Porcine) 5,000 unit 09/12/20 04:00 09/20/20 05:12 Heparin Sodium,Porcine 5,000 Unit/Ml Vial SUBCUT 5,000 unit Q12H [facility] Administration Doxycycline Hyclate 100 mg/ 250 mls @ 166.67 mls/hr 09/12/20 12:00 09/20/20 11:58 Sodium Chloride IV 166.67 mls/hr Q12H [facility] Administration Ceftriaxone Sodium 1 gm/ 50 mls @ 100 mls/hr 09/14/20 00:00 09/20/20 00:22 Sodium Chloride IV Infused Q24H [facility] Infusion Insulin Human Lispro 0 unit 09/12/20 07:30 09/20/20 11:27 Insulin Lispro 100 Unit/Ml 3 Ml Vial SUBCUT Not Given QIDACHS [facility] Protocol Magnesium Hydroxide 15 ml 09/12/20 05:17 Milk Of Magnesia 30 Ml Oral.Susp PO BEDTIME PRN Constipation Metoclopramide HCl 5 mg 09/18/20 10:09 09/19/20 09:53 Metoclopramide Hcl 5 Mg Tablet PO 5 mg TIDAC PRN Administration Nausea Metoprolol Tartrate 50 mg 09/17/20 12:05 09/20/20 08:47 Metoprolol Tartrate 50 Mg Tablet PO 50 mg BID [facility] Administration Protocol Ondansetron HCl 4 mg 09/12/20 02:22 09/20/20 08:47 Ondansetron Hcl 4 Mg/2 Ml Vial IVPUSH 4 mg Q8H PRN Administration Nausea and Vomiting Oxycodone HCl 5 mg 09/18/20 10:19 09/20/20 08:48 Oxycodone Hcl Immed Release 5 Mg Tablet PO 5 mg Q4H PRN Administration Pain, Severe (Pain Scale 7-10) Pharmacy Consult 1 each 09/11/20 19:23 Consult Rx Perform Med Rec MISCELLANE ONCE PRN Consult order Polyethylene Glycol 17 gm 09/12/20 09:00 09/20/20 08:48 Polyethylene Glycol 3350 17 Gm Powd.Pack PO 17 gm DAILY [facility] Administration Senna 8.6 mg 09/12/20 16:38 Sennosides 8.6 Mg Tablet PO BEDTIME PRN constipation Sodium Chloride 3 ml 09/12/20 02:22 09/20/20 08:53 0.9 % Sodium Chloride Flush 3 Ml Syringe IVFLUSH 3 ml QSHIFT [facility] Administration Labs CBC & Chem 7: 09/19/20 06:12 09/19/20 06:12 Microbiology Microbiology Results: Microbiology 09/11/20 17:10 Blood - Venous Blood Culture - Final Proteus mirabilis 09/11/20 16:32 Blood - Venous Blood Culture - Final Proteus mirabilis 09/11/20 18:42 Urine clean catch - Clean Catch Midstream Urine Culture - Final Proteus species Assessment and Plan (1) Osteomyelitis of sacrum: Status: Acute (2) Acute UTI: Status: Acute (3) Severe sepsis: Status: Acute (4) Lactic acidosis: Status: Acute (5) Acute renal failure: Status: Acute (6) PRIYANKA (acute kidney injury): Status: Acute (7) Metabolic acidosis: Status: Acute (8) Malnutrition of moderate degree: Status: Acute (9) Sepsis: Status: Acute Assessment and Plan: 80-year-old female with both medical history as above who presents to the hospital with increased leukocytosis as well as altered mentation Severe sepsis, resolved Proteus bacteremia secondary to sacral osteomyelitis/UTI Wound culture urge to has multiple bacteria S include Proteus CT of the pelvis showed gas and concern for osteomyelitis Continue doxycycline and ceftriaxone D Surgery input appreciated, local care with dressing Id input appreciated, finish 6 weeks of IV ceftriaxone and p.o. doxycycline IR refused to place a PICC line unless blood cultures are repeated. Cultures recent on 09/19 Discharge planning for SNF after replacement of PICC line UTI Urine grew Proteus Continue ceftriaxone Hypokalemia Resolved Replacement given Physical deconditioning PT evaluation lactic acidosis Resolved, Secondary to sepsis and using metformin Acute renal failure Improving back to baseline Likely a result of sepsis, dehydration Discontinue IV fluid Appreciate Nephrology evaluation Monitor intake and output Moderate protein malnutrition Add supplement per dietitian recommendation Acute on chronic anemia Hemoglobin improved to 8.4 after 1 unit transfusion No reported source of bleeding Likely dilution with using IV fluid Negative occult blood DVT prophylaxis: Heparin
--- NOTE | 2020-09-20 15:52 | PC.NURSE ---
Patient refusing wound care/wound dressing changes this evening. Patient educated on importance of wound care and dressing changes and patient resistive to care.
[2020-09-20 15:54] LABS: Glucose, Whole Blood 128 mg/dL (60-115)
[2020-09-21] VITALS (7 sets, daily range): BP systolic 137–150; BP diastolic 68–77; PULSE 78–108; RESP 16–19; TEMP 35.9–36.6; O2SAT 99–100; BMI 22.0
[2020-09-21] MEDS: ondansetron HCL 4 MG/2 ML VIAL IVPUSH (01:21)
[2020-09-21] MEDS: Doxycycline Hyclate 100 MG in 0.9 % Sodium Chloride 250 ML 166.67 MG IV ×2 (01:21→17:15)
[2020-09-21] MEDS: 0.9 % Sodium Chloride Flush 3 ML SYRINGE IVFLUSH ×3 (01:22→15:53)
[2020-09-21] MEDS: oxyCODONE HCl Immed Release 5 MG TABLET PO ×4 (01:30→20:53)
[2020-09-21] MEDS: Heparin Sodium,Porcine 5,000 UNIT/ML VIAL 5000 UNIT SUBCUT ×2 (04:48→15:53)
[2020-09-21 07:51] LABS: Glucose, Whole Blood 62 mg/dL (60-115)
[2020-09-21] MEDS: Metoprolol Tartrate 50 MG TABLET PO ×2 (09:03→20:54)
[2020-09-21 11:25] LABS: Glucose, Whole Blood 85 mg/dL (60-115)
--- NOTE | 2020-09-21 12:33 | HO.PM.IMPN ---
Subjective Subjective Date of Service: 09/21/20 Interval History: seen and examined no complaints. no new issues reported per director of midwifery/staff midwife ROS General - no fevers or chills Cardiovascular - no chest pain Respiratory - no shortness of breath or cough Abdominal- no abdominal pain, nausea, vomiting, diarrhea Physical Exam Vital Signs: Vital Signs: Last Vital Signs Temp 97.8 F 09/21/20 12:00 Pulse 80 09/21/20 12:00 Resp 19 09/21/20 12:00 BP 150/73 H 09/21/20 12:00 Pulse Ox 99 09/21/20 12:00 Body Mass Index 22.0 Const: Other: General - no acute distress, appears comfortable Cardiovascular - regular rate and rhythm, S1-S2 Lungs - normal respiratory effort, clear to auscultation bilaterally, no wheezing Abdomen - soft, nontender, no rebound or guarding Extremities - no edema bilaterally Neuro - awake and alert, no focal deficits Objective Data Current Medications Generic Name Dose Route Start Last Admin Trade Name Freq PRN Reason Stop Dose Admin Acetaminophen 650 mg 09/12/20 02:22 09/19/20 16:09 Acetaminophen 325 Mg Tablet PO 650 mg Q6H PRN Administration Pain, Mild (Pain Scale 1-3) Docusate Sodium 100 mg 09/12/20 02:22 Docusate Sodium 100 Mg Capsule PO DAILY PRN Constipation Heparin Sodium (Porcine) 5,000 unit 09/12/20 04:00 09/21/20 04:48 Heparin Sodium,Porcine 5,000 Unit/Ml Vial SUBCUT 5,000 unit Q12H [facility] Administration Doxycycline Hyclate 100 mg/ 250 mls @ 166.67 mls/hr 09/12/20 12:00 09/21/20 02:56 Sodium Chloride IV Infused Q12H [facility] Infusion Ceftriaxone Sodium 1 gm/ 50 mls @ 100 mls/hr 09/21/20 23:00 Sodium Chloride IV Q24H [facility] Insulin Human Lispro 0 unit 09/12/20 07:30 09/21/20 11:31 Insulin Lispro 100 Unit/Ml 3 Ml Vial SUBCUT Not Given QIDACHS [facility] Protocol Magnesium Hydroxide 15 ml 09/12/20 05:17 Milk Of Magnesia 30 Ml Oral.Susp PO BEDTIME PRN Constipation Metoclopramide HCl 5 mg 09/18/20 10:09 09/19/20 09:53 Metoclopramide Hcl 5 Mg Tablet PO 5 mg TIDAC PRN Administration Nausea Metoprolol Tartrate 50 mg 09/17/20 12:05 09/21/20 09:03 Metoprolol Tartrate 50 Mg Tablet PO 50 mg BID [facility] Administration Protocol Ondansetron HCl 4 mg 09/12/20 02:22 09/21/20 01:21 Ondansetron Hcl 4 Mg/2 Ml Vial IVPUSH 4 mg Q8H PRN Administration Nausea and Vomiting Oxycodone HCl 5 mg 09/18/20 10:19 09/21/20 09:03 Oxycodone Hcl Immed Release 5 Mg Tablet PO 5 mg Q4H PRN Administration Pain, Severe (Pain Scale 7-10) Pharmacy Consult 1 each 09/11/20 19:23 Consult Rx Perform Med Rec MISCELLANE ONCE PRN Consult order Polyethylene Glycol 17 gm 09/12/20 09:00 09/21/20 09:09 Polyethylene Glycol 3350 17 Gm Powd.Pack PO Not Given DAILY [facility] Senna 8.6 mg 09/12/20 16:38 Sennosides 8.6 Mg Tablet PO BEDTIME PRN constipation Sodium Chloride 3 ml 09/12/20 02:22 09/21/20 09:04 0.9 % Sodium Chloride Flush 3 Ml Syringe IVFLUSH 3 ml QSHIFT [facility] Administration Labs CBC & Chem 7: 09/19/20 06:12 09/19/20 06:12 Microbiology Microbiology Results: Microbiology 09/19/20 18:26 Blood - Venous Blood Culture - Preliminary No growth after 24 hours. 09/19/20 18:26 Blood - Venous Blood Culture - Preliminary No growth after 24 hours. 09/11/20 17:10 Blood - Venous Blood Culture - Final Proteus mirabilis 09/11/20 16:32 Blood - Venous Blood Culture - Final Proteus mirabilis 09/11/20 18:42 Urine clean catch - Clean Catch Midstream Urine Culture - Final Proteus species Assessment and Plan (1) Bacteremia: Status: Acute Assessment and Plan: 80 yo F admitted for: 1. Severe sepsis secondary to UTI / Osteomyelitis / Proteus Bacteremia sepsis resolved REpeat blood cx negative @ 24 hours PICC line today if okay with IR Rocephin / Doxy as recommended by ID -- plan for rocephin x 6 weeks + doxycycline po x 2-3 months; currently day rocephin + doxy (End date for Rocephin: 10/23/2019) 2. UTI rocephin as above 3. Hypokalemia Resolved Replacement given 4. Physical deconditioning PT evaluation - back to SNF when medically stable 5. lactic acidosis Resolved, Secondary to sepsis and using metformin 6. Acute renal failure resolved due to acute infection 7. Moderate protein malnutrition Add supplement per dietitian recommendation 8. Acute on chronic anemia no evidence of blood loss h/h stable post transfusion DVT prophylaxis: Heparin dispo: hopefully back to SNF tomorrow once picc line placed
--- NOTE | 2020-09-21 14:51 | P.PICC_ITS ---
[facility] Line Insertion [facility] Diagnosis: OSTEOMYELITIS Indication: HALF-WAY IV ANTIBIOTICS Pertinent Labs: REVIEWED; PRELIMINARY RESULTS FOR REPEAT BLOOD CULTURES SHOW NO GROWTH OVER 24 HRS. CLEARANCE FOR PICC INSERTION OBTAINED BY DR. WEBB. Technique: Following informed consent including risks, benefits and alternatives and using sterile technique including cap and mask, sterile gown, glove and drape, the LEFT arm was prepped and draped in the usual sterile fashion of full barrier technique with G. Following completion of [place] Protocol the skin and soft tissues were anesthetized with 1% Lidocaine plain. Using ultrasound guidance, LEFT BRACHIAL vein access was obtained ON SECOND ATTEMPT BY THIS RN. Over an 0.018 wire through peel-away sheath, a 4 MACEDONIAN SINGLE LUMEN PASV PICC line was positioned. Catheter length is 37 CM internal length, 0 CM AT HUB external length, for a total trimmed length of 37 CM. The procedure was performed in [place] [id number]. Tip verification was performed by Iman Block with Sherlock 3CG. Tip located in SVC. Ultrasound was used to document vein patency and for needle entry. A formal ultrasound picture and cardiac rhythm strip was recorded. Vascular [employer] has released the line for use and it is currently dressed with a StatLock, Tegaderm, and CHG disc. Verification has been performed for blood return and line patency. Arm Circumference: 27 CM Equipment: [employer] POWER PICC SOLO Catheter Type: 4 MACEDONIAN SINGLE LUMEN PASV PICC Lot #: [id number]
--- NOTE | 2020-09-21 15:36 | PM.PNNEP ---
Subjective Subjective Date of Service: 09/21/20 Interval history: Events noted Physical Exam Vital Signs: Vital Signs: Last Vital Signs Temp 97.8 F 09/21/20 12:00 Pulse 80 09/21/20 12:00 Resp 19 09/21/20 12:00 BP 150/73 H 09/21/20 12:00 Pulse Ox 99 09/21/20 12:00 Body Mass Index 22.0 Physical exam: Constitutional: Not in acute distress. Cvs: rrr, [id number] , no murmur res: clear to auscultation ,no rhonchii or wheezing abd: no rebound or guarding ,nt, bs present. ext pulses present , no cyanosis neuro: nonfocal Objective Data Labs CBC & Chem 7: 09/19/20 06:12 09/19/20 06:12 Labs: Laboratory Results - last 24 hr 09/20/20 09/21/20 09/21/20 15:47 07:27 11:11 POC Glucose 128 H 62 85 Microbiology Microbiology Results: Microbiology 09/19/20 18:26 Blood - Venous Blood Culture - Preliminary No growth after 24 hours. 09/19/20 18:26 Blood - Venous Blood Culture - Preliminary No growth after 24 hours. 09/11/20 17:10 Blood - Venous Blood Culture - Final Proteus mirabilis 09/11/20 16:32 Blood - Venous Blood Culture - Final Proteus mirabilis 09/11/20 18:42 Urine clean catch - Clean Catch Midstream Urine Culture - Final Proteus species Assessment & Plan Assessment and plan (1) Acute renal failure: Status: Acute Assessment and Plan: Due to ATN Renal fx is improving Continue to avoid nephrotoxins Follow UO and creatiine Shall follow as needed Time Spent With Patient Time: Total time spent is greater than 50% in coordination of care (as documented) at patient's floor/unit and/or counseling patient:
[2020-09-21 16:26] LABS: Glucose, Whole Blood 80 mg/dL (60-115)
[2020-09-21 20:29] LABS: Glucose, Whole Blood 76 mg/dL (60-115)
[2020-09-21] MEDS: cefTRIAXone sodium 1 GM in 0.9 % Sodium Chloride 50 ML IV (22:47)
[2020-09-22] MEDS: 0.9 % Sodium Chloride Flush 3 ML SYRINGE IVFLUSH ×2 (00:31→08:40)
[2020-09-22 00:48] VITALS: BP 144/80; PULSE 81; RESP 20; TEMP 36.5; O2SAT 100
[2020-09-22 03:19] VITALS: BP 146/81; PULSE 82; RESP 18; TEMP 36.7; O2SAT 99
[2020-09-22] MEDS: Heparin Sodium,Porcine 5,000 UNIT/ML VIAL 5000 UNIT SUBCUT (03:23)
[2020-09-22] MEDS: oxyCODONE HCl Immed Release 5 MG TABLET PO ×2 (03:23→08:49)
[2020-09-22 06:00] VITALS: BMI 21.7
[2020-09-22] MEDS: Doxycycline Hyclate 100 MG in 0.9 % Sodium Chloride 250 ML 166.7 MG IV (06:42)
[2020-09-22 06:56] VITALS: BP 158/80; PULSE 85; RESP 20; TEMP 36.6; O2SAT 100
[2020-09-22 07:20] LABS: Glucose, Whole Blood 59 mg/dL (60-115)
[2020-09-22 08:20] LABS: Glucose, Whole Blood 60 mg/dL (60-115)
[2020-09-22 08:40] VITALS: BP 158/80; PULSE 85
[2020-09-22] MEDS: Metoprolol Tartrate 50 MG TABLET PO (08:40)
--- NOTE | 2020-09-22 10:09 | PM.DS ---
DS: Providers Provider Date of admission: 09/11/20 23:58 Primary care physician: Unknown Physician Consults: 09/11/20 23:58 Consult to Nephrology Routine Consulting Provider: [facility] Reason for consultation: PRIYANKA Has provider been notified: Yes 09/12/20 05:26 Consult to Infectious Diseases Routine Consulting Provider: Fabby Maynard Reason for consultation: Acute versus chronic osteomyelitis Has provider been notified: No 09/12/20 07:45 Consult to General Surgery Routine Consulting Provider: [facility] Reason for consultation: Sacral ulcer with Osteomyelitis for your kind eval and rec. 09/16/20 18:55 Consult to Wound Care Provider Routine Consulting Provider: Baldev Prather Reason for consultation: stage iv ulcer on coccyx DS: Diagnosis Discharge Diagnosis (1) Severe sepsis: Status: Acute (2) Bacteremia: Status: Acute (3) Osteomyelitis of sacrum: Status: Acute (4) PRIYANKA (acute kidney injury): Status: Acute (5) Lactic acidosis: Status: Acute (6) Acute UTI: Status: Acute (7) Sacral decubitus ulcer, stage IV: Status: Acute Problem details: Chronic. (8) Moderate protein-calorie malnutrition: Status: Acute DS: Medications Discharge Medications Home Medications: Home Medications Medication Instructions Recorded Confirmed Lactobacillus rhamnosus GG 10 1 cap PO BID PRN 07/12/20 09/11/20 billion cell capsule acetaminophen 325 mg capsule 650 mg PO Q6H PRN 07/12/20 09/11/20 ammonium lactate 12 % lotion 1 applic TOPICAL DAILY 07/12/20 09/11/20 bisacodyl 5 mg tablet,delayed 5 mg PO BEDTIME PRN 07/12/20 09/11/20 release diclofenac sodium 1 % topical gel 4 g TOPICAL BID g 07/12/20 09/11/20 metformin 1,000 mg tablet,extended 1,000 mg PO DAILY 07/12/20 09/11/20 release 24hr metoprolol tartrate 50 mg tablet 50 mg PO BID 07/12/20 09/11/20 oxycodone 10 mg tablet 10 mg PO TID PRN 07/12/20 09/11/20 oxycodone 15 mg tablet,crush 15 mg PO Q12H 07/12/20 09/11/20 resistant,extended release 12 hr pantoprazole 40 mg tablet,delayed 40 mg PO DAILY 07/12/20 09/11/20 release polyethylene glycol 3350 17 gram 17 g PO DAILY 07/12/20 09/11/20 oral powder packet sennosides 8.6 mg tablet 8.6 mg PO BEDTIME PRN 07/12/20 09/11/20 Previous Rx's Medication Instructions Recorded ceftriaxone 1 g IV Q24H 32 Days ea 09/22/20 doxycycline monohydrate 100 mg PO BID #60 cap 09/22/20 DS: Summary Hospital Course Hospital Course: From admission H&P: This is a 80-year-old female with past medical history of type 2 diabetes, HLD, history of osteomyelitis, CAD, hypertension of the sacrum, anemia, who presents to the hospital from [facility] with increased WBC and increased altered mentation Patient is awake, alert, oriented to self and place, but is not sure while she was brought into the hospital. She is able to answer questions appropriately with yes or no, but is not a great historian. Therefore history is obtained mostly from ED physician. It appears that patient had lab drawn today [place] [address]. Per report the patient has been more confused from baseline. She does complain of abdominal discomfort which is generalized, some nausea with no vomiting, she denies any fever, no chills, no chest pain or shortness of breath. No diarrhea or constipation. Unable to time she has any urinary symptoms. Otherwise review of system negative as patient answers no to most of my questions. On arrival to the ED hemodynamically stable With no significant abnormal vitals. Labs are significant for WBC count of 12.2, hemoglobin of 8.1 which is around her baseline, BUN of 115, creatinine of 4.18, has now increased to 10.3, and C-reactive protein of 16.3 with an ESR of 80. UA that is positive for leukocyte Estrace, nitrates, WBC, COVID-19 negative, Abdominal/pelvic CT shows changes in the sacrum and buttocks consistent with ulcer with associated bony destruction changes in the right eugenia sacrum and some soft tissue swelling and air within the tissues suggestive of osteomyelitis Cholelithiasis without cholecystitis and rectal distention with stool History is obtained mostly from chart as patient is confused and is unable to give full history. Hospital Course: Patient presented with altered mental status due to multiple acute issues including renal failure, urinary tract infection, osteomyelitis all leading to severe sepsis. She was treated with broad-spectrum IV antibiotics and aggressive fluid resuscitation with improvement in her renal failure as well as sepsis. Her blood cultures ultimately returned positive for Proteus which was sensitive to ceftriaxone. Multiple specialties including Infectious Disease and General surgery were consulted. Id recommended 6 weeks of ceftriaxone and 2 to 3 months total of p.o. doxycycline. End date for ceftriaxone will be 10/23/2020 and doxycycline to continue for an additional 1-2 months beyond this. General surgery recommended local wound care which can be continued at half-way facility. Time Spent with Patient Time attestation: Total time spent providing and/or coordinating discharge services: Physical Exam Vital Signs: Vital Signs: Last Vital Signs Temp 97.9 F 09/22/20 06:56 Pulse 85 09/22/20 08:40 Resp 20 09/22/20 06:56 BP 158/80 H 09/22/20 08:40 Pulse Ox 100 09/22/20 06:56 Body Mass Index 21.7 Const: Other: General - no acute distress, appears comfortable Cardiovascular - regular rate and rhythm, S1-S2 Lungs - normal respiratory effort, clear to auscultation bilaterally, no wheezing Abdomen - soft, nontender, no rebound or guarding Extremities - no edema bilaterally Neuro - awake and alert, no focal deficits Skin - sacral decub, no drainage DS: Data Data Completed and Pending Labs on day of discharge: Laboratory Last Values WBC 8.1 X10*3/uL (4.8-10.8) 09/19/20 06:12 RBC 3.42 X10*6/uL (4.20-5.50) L 09/19/20 06:12 Hgb 8.8 g/dl (12.0-16.0) L 09/19/20 06:12 Hct 28.9 % (37-47) L 09/19/20 06:12 MCV 84.5 fL (80-98) 09/19/20 06:12 MCH 25.7 pg (27.0-33.0) L 09/19/20 06:12 MCHC 30.4 g/dl (31.0-35.0) L 09/19/20 06:12 RDW 19.3 % (11.0-16.0) H 09/19/20 06:12 Plt Count 216 X10*3/uL (160-400) 09/19/20 06:12 MPV 9.6 fL (9.4-12.3) 09/19/20 06:12 Immature Gran % (Auto) 1.1 % (0.0-0.4) H 09/12/20 04:08 Neut % (Auto) 91.1 % (45-73) H 09/12/20 04:08 Lymph % (Auto) 5.6 % (20-40) L 09/12/20 04:08 [place] % (Auto) 2.1 % (2-11) 09/12/20 04:08 Eos % (Auto) 0.0 % (0-4) 09/12/20 04:08 Baso % (Auto) 0.1 % (0-2) 09/12/20 04:08 Lymph # (Auto) 0.7 X10*3/uL (1.2-4.9) L 09/12/20 04:08 [place] # (Auto) 0.3 X10*3/uL (0.1-1.2) 09/12/20 04:08 Eos # (Auto) 0.0 X10*3/uL (0.0-0.4) 09/12/20 04:08 Baso # (Auto) 0.0 X10*3/uL (0.0-0.2) 09/12/20 04:08 Abs Immat Gran (auto) 0.13 X10*3/uL (0.00-0.03) H 09/12/20 04:08 Absolute Neuts (auto) 11.1 X10*3/uL (2.0-8.3) H 09/12/20 04:08 Absolute Nucleated RBC 0.000 X10*3/uL (0.0-0.012) 09/19/20 06:12 Nucleated RBC % (auto) 0.0 /100WBC (0.0-0.2) 09/19/20 06:12 Smear Tech's Comments VERIFIED 09/12/20 04:08 Smear Path Review SEE NOTE 09/14/20 05:25 ESR 80 MM/HR (0-20) H 09/12/20 02:50 PT 16.8 SEC (10.8-13.0) H 09/19/20 09:07 INR 1.4 (0.9-1.1) H 09/19/20 09:07 Sodium 145 mmol/L (135-145) 09/19/20 06:12 Potassium 4.1 mmol/l (3.3-5.1) 09/19/20 06:12 Chloride 113 mmol/L (96-108) H 09/19/20 06:12 Carbon Dioxide 22 mmol/L (22-29) 09/19/20 06:12 Anion Gap 14 (-20) 09/19/20 06:12 BUN 31 mg/dL (9-16) H 09/19/20 06:12 Creatinine 1.00 mg/dL (0.5-1.4) 09/19/20 06:12 Estim Creat Clear Calc 41.7 09/19/20 06:12 Estimated GFR 54 09/19/20 06:12 POC Glucose 60 mg/dL (60-115) 09/22/20 08:17 Random Glucose 89 mg/dL (60-115) 09/19/20 06:12 Lactic Acid 14.3 mmol/L (0.5-2.0) H* 09/12/20 05:47 Lactic Acid Fup @ 2Hr 13.8 mmol/L (0.5-2.0) H* 09/12/20 08:17 Lactic Acid Fup @ 4Hr 12.7 mmol/L (0.5-2.0) H* 09/12/20 10:58 Calcium 6.7 mg/dL (8.4-10.2) L 09/19/20 06:12 Magnesium 2.2 mg/dL (1.6-2.6) 09/11/20 16:32 Iron 47 mcg/dL (30-160) 09/18/20 16:13 TIBC 107 mcg/dL (228-428) L 09/18/20 16:13 % Saturation 44 % (15-50) 09/18/20 16:13 Unsat Iron Binding 60 ug/dL 09/18/20 16:13 Total Bilirubin 0.3 mg/dL (0.0-1.0) 09/14/20 05:25 Direct Bilirubin 0.2 mg/dL (0.0-0.5) 09/14/20 05:25 AST 20 U/L (5-31) 09/14/20 05:25 ALT 7 U/L (0-31) 09/14/20 05:25 Alkaline Phosphatase 66 U/L (39-117) 09/14/20 05:25 Troponin I High Sens 5.7 ng/L (<3.5-17.0) 09/11/20 21:34 C-Reactive Protein 16.35 mg/dL (< or = 0.50) H 09/12/20 02:50 Total Protein 5.0 g/dL (6.5-8.0) L 09/14/20 05:25 Albumin 1.8 g/dL (3.5-5.0) L 09/14/20 05:25 Urine Color YELLOW 09/11/20 18:26 Urine Appearance TURBID 09/11/20 18:26 Urine pH 7.0 (5.0-8.0) 09/11/20 18:26 Ur Specific [place] 1.025 (1.005-1.025) 09/11/20 18:26 Urine Protein 2+ MG/DL (NEG-TRACE) H 09/11/20 18:26 Urine Glucose (UA) 100 MG/DL (NEG) H 09/11/20 18:26 Urine Ketones 5 MG/DL (NEG) 09/11/20 18:26 Urine Blood 2+ (NEG) H 09/11/20 18:26 Urine Nitrite POS (NEG) H 09/11/20 18:26 Ur Leukocyte Esterase 3+ (NEG) H 09/11/20 18:26 Urine RBC 10-14 /HPF (0) H 09/11/20 18:26 Urine WBC TNTC /HPF (0-4) H 09/11/20 18:26 Ur Squamous Epith Cells NONE /LPF 09/11/20 18:26 Urine Bacteria 4+ /LPF 09/11/20 18:26 Ur Random Sodium 42.0 mmol/L 09/17/20 05:15 Random Vancomycin 11.4 mcg/mL (15-20) L 09/12/20 08:03 Coronavirus (PCR) NEGATIVE (Negative) 09/11/20 16:32 Influenza Type A (PCR) NEGATIVE (Negative) 09/11/20 16:32 Influenza Type B (PCR) NEGATIVE (Negative) 09/11/20 16:32 RSV RNA Qual (PCR) NEGATIVE (Negative) 09/11/20 16:32 Blood Type O Positive 09/14/20 07:11 Antibody Screen NEGATIVE 09/14/20 07:11 Crossmatch See Detail 09/14/20 07:11 Preliminary micro results at discharge 09/19/20 18:26 Blood Culture - Preliminary Blood - Venous No growth after 48 hours. 09/19/20 18:26 Blood Culture - Preliminary Blood - Venous No growth after 48 hours. Discharge Plan Discharge Patient Disposition: er [facility] Referrals: Physician,Unknown [Primary Care Provider] - Discharge Medications: New ceftriaxone 1 gram Recon Soln 1 g IV Q24H 32 Days RF: 0 doxycycline monohydrate 100 mg capsule 100 mg PO BID Qty: 60 RF: 0 Continued ammonium lactate 12 % lotion 1 applic topical DAILY RF: 0 metformin 1,000 mg tablet extended release 24hr 1,000 mg PO DAILY RF: 0 polyethylene glycol 3350 17 gram powder in packet 17 g PO DAILY RF: 0 sennosides [senna] 8.6 mg tablet 8.6 mg PO BEDTIME PRN (Reason: constipation) RF: 0 Culturelle 10 billion cell capsule 1 cap PO BID PRN (Reason: GI upset) RF: 0 diclofenac sodium 1 % gel 4 g topical BID RF: 0 metoprolol tartrate 50 mg tablet 50 mg PO BID RF: 0 oxycodone [OxyContin] 15 mg tablet,oral only,ext.rel.12 hr 15 mg PO Q12H RF: 0 pantoprazole 40 mg tablet,delayed release (DR/EC) 40 mg PO DAILY RF: 0 oxycodone 10 mg tablet 10 mg PO TID PRN (Reason: Pain) RF: 0 acetaminophen 325 mg capsule 650 mg PO Q6H PRN (Reason: Pain) RF: 0 bisacodyl 5 mg tablet,delayed release (DR/EC) 5 mg PO BEDTIME PRN (Reason: Constipation) RF: 0 Discharge Orders: Discharge Order (Routine); Ordered 09/22/20 Ordered By: Sreekanth Solis Diet: advance to usual diet Activity on Discharge: As tolerated Visit Report Forms: Patient Portal Discharge page Care Plan Goals: To stay healthy and out of the hospital. Health Concerns: Bacteremia / UTI / Sacral Wound Plan of Treatment: Bacteremia / UTI / Sacral Wound - complete antibiotics. Rocephin Until 10/23/2020; Doxycycline at least until 10/23/2019 and possibly beyond.
[2020-09-22 10:27] LABS: Glucose, Whole Blood 97 mg/dL (60-115)
[2020-09-22 10:50] LABS: COVID-19 Test Negative (Negative)
[2020-09-22 11:09] VITALS: BP 158/80; PULSE 76; RESP 20; TEMP 36.6; O2SAT 96
[2020-09-22 11:35] LABS: Glucose, Whole Blood 101 mg/dL (60-115)
--- NOTE | 2020-09-22 11:38 | PC.NURSE ---
Patient blood sugar at 0714 was 59, patient was asymptomatic. patient given 4 ounces of juice. at 0814 blood sugar was 60. notified doctor octavio. patient given her breakfast. patient poc at 1022 was 97. her blood sugar at 1109 was 101. patient asymptomatic. patient comfortable in bed with call banerjee in reach.
== END 2020-09-22 12:45 | DRG 871 ==
LOC: HO.ED 21:16 → HO.IMC 09-12 00:20
PROVIDERS: Internal Medicine Nephrology; Nurse Practitioner Family; Student in an Organized Health Care Education/Training Program; Admitting Provider Internal Medicine; Emergency Provider Emergency Medicine; Visit Provider Family Medicine
DX: A41.4 Sepsis due to anaerobes (principal); L89.154 Pressure ulcer of sacral region, stage 4; G93.41 Metabolic encephalopathy; N17.0 Acute kidney failure with tubular necrosis; N39.0 Urinary tract infection, site not specified; M86.9 Osteomyelitis, unspecified; E87.2 Acidosis; E44.0 Moderate protein-calorie malnutrition; R65.20 Severe sepsis without septic shock; E87.6 Hypokalemia; E11.69 Type 2 diabetes mellitus with other specified complication; D64.9 Anemia, unspecified; I95.9 Hypotension, unspecified; Z68.21 Body mass index [BMI] 21.0-21.9, adult; E78.5 Hyperlipidemia, unspecified; D72.829 Elevated white blood cell count, unspecified; Z20.828 Contact with and (suspected) exposure to other viral communicable diseases; Z79.84 Long term (current) use of oral hypoglycemic drugs; Z79.899 Other long term (current) drug therapy
CPT/HCPCS: 0241U; 36415; 36573; 71045; 72170; 74176; 80048; 80076; 80202; 81001; 82947; 83540; 83605; 83735; 84300; 84484; 85025; 85027; 85060; 85610; 85652; 86140; 86850; 86900; 86901; 86920; 86923; 87040; 87077; 87086; 87186; 87635; 93005; 96361; 96365; 96366; 96367; 96375; 97161; 99225; 99285; 99291; C1751; J0610; J0696; J2405; J2543; J3370; P9016

== ENCOUNTER 2020-10-02 23:55 | Emergency (ER) | payer MEDICARE, SELFPAY ==
[2020-10-03] VITALS (11 sets, daily range): BP systolic 93–135; BP diastolic 38–60; PULSE 71–100; RESP 14–18; TEMP 36.4–36.6; O2SAT 95–100; BMI 22.3
--- NOTE | 2020-10-03 00:38 | CT_ITS ---
EXAMINATION: CT PELVIS WITHOUT CONTRAST CLINICAL INFORMATION: Possible rectovaginal fistula. COMPARISON: 09/11/2020 TECHNIQUE: Helical scanning was performed with submillimeter collimation through the pelvis. Sagittal and coronal multiplanar 2-D reconstructions were obtained. This CT examination was performed using dose optimization techniques as appropriate, variously including the following: *Automated exposure control *Adjustment of mA and/or kV according to patient size (this includes techniques or standardized protocols for targeted exams where dose is matched to indication/reason for exam; i.e. extremities or head) *Use of iterative reconstruction technique DLP: 304 mGy-cm FINDINGS: There is a large sacral decubitus ulceration measuring 5.8 x 8.5 cm area with marked remodeling of the sacrum and absence of the coccyx. Ill-defined osteolysis along the posterior/distal margins of both sacral ala is concerning for superimposed acute osteomyelitis. The adjacent soft tissues are edematous and swollen. No discrete fluid collections are identified in this region. A Edwards catheter extends into the bladder. No contrast material is present within the bladder. Both the rectum and vagina are decompressed without intraluminal contrast material. No significant fecal material within the rectum. A few of the foci of gas are present within the vagina. The rectum appears relatively thickened, potentially due to superimposed inflammation. No surrounding fluid collections are identified. There is generalized anasarca in the pelvis, characterized with subcutaneous edema most notably. No acute intrapelvic abnormalities are identified. Uterus is unremarkable. Calcific atherosclerosis is present in the abdominal aorta and iliac arteries. Fusion hardware at the lumbosacral junction appears intact. There is mild osteoarthritis in the hips and SI joints. No appreciable ulcers over the proximal femurs, though there is likely developing soft tissue ulceration overlying the right ischial region. CT/CT pelvis wo con IMPRESSION: 1. No specific findings of a rectovaginal fistula, though sensitivity is limited on this CT without contrast material in the rectum. A few punctate foci of gas within the vagina are not specific. Consider a dedicated fluoroscopic study or fluoroscopic injection of rectal contrast material with a subsequent CT. 2. Large sacral decubitus ulcer. Erosion at the distal margin of the sacral alae raise the possibility of acute osteomyelitis. 3. Developing right ischial decubitus ulcer.
--- NOTE | 2020-10-03 00:40 | ED.GENADULT ---
HPI - General Adult General Chief complaint: General Medical Stated complaint: Unknown Time Seen by Provider: 10/03/20 00:22 Source: patient Mode of arrival: EMS Limitations: no limitations History of Present Illness HPI narrative: Patient comes emergency room complaining of rectovaginal fistula. Patient states this is the 1st time that her caretakers at [facility] have noticed it. Patient denies any symptoms, no pain. 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 Related Data Home Medications Medication Instructions Recorded Confirmed Lactobacillus rhamnosus GG 10 1 cap PO BID PRN 07/12/20 09/11/20 billion cell capsule acetaminophen 325 mg capsule 650 mg PO Q6H PRN 07/12/20 09/11/20 ammonium lactate 12 % lotion 1 applic TOPICAL DAILY 07/12/20 09/11/20 bisacodyl 5 mg tablet,delayed 5 mg PO BEDTIME PRN 07/12/20 09/11/20 release diclofenac sodium 1 % topical gel 4 g TOPICAL BID g 07/12/20 09/11/20 metformin 1,000 mg tablet,extended 1,000 mg PO DAILY 07/12/20 09/11/20 release 24hr metoprolol tartrate 50 mg tablet 50 mg PO BID 07/12/20 09/11/20 oxycodone 10 mg tablet 10 mg PO TID PRN 07/12/20 09/11/20 oxycodone 15 mg tablet,crush 15 mg PO Q12H 07/12/20 09/11/20 resistant,extended release 12 hr pantoprazole 40 mg tablet,delayed 40 mg PO DAILY 07/12/20 09/11/20 release polyethylene glycol 3350 17 gram 17 g PO DAILY 07/12/20 09/11/20 oral powder packet sennosides 8.6 mg tablet 8.6 mg PO BEDTIME PRN 07/12/20 09/11/20 Previous Rx's Medication Instructions Recorded ceftriaxone 1 g IV Q24H 32 Days ea 09/22/20 doxycycline monohydrate 100 mg PO BID #60 cap 09/22/20 Allergies Allergy/AdvReac Type Severity Reaction Status Date / Time clindamycin Allergy Rash Verified 09/12/20 03:19 Review of Systems Review of Systems: Constitutional : No Weight loss, No Fever, No Chills, No Night Sweats, No Fatigue, No Malaise ENT/Mouth : No Hearing loss, No Ear Pain, No Nasal Congestion, No Sinus Pain, No Hoarseness, No sore throat, No Rhinorrhea, No Swallowing Difficulty Eyes: No Eye Pain, No Swelling, No Redness, No Foreign Body, No Discharge, No Vision Changes Cardiovascular : No Chest Pain, No SOB, No Dyspnea on Exertion, No Orthopnea, No Edema, No Palpitations Respiratory : No Cough, No Sputum, No Wheezing, No Smoke Exposure, No Dyspnea Gastrointestinal : No Nausea, No Vomiting, No Diarrhea, No Constipation, No abdominal Pain, No Hematochezia, No Melena Genitourinary : Complaining of a new rectovaginal fistula , no irregular bleeding, No Dysuria, No Urinary Frequency, No Hematuria, No Urinary Incontinence, No Urgency, No Flank Pain, No Urinary Flow Changes, No Hesitancy Musculoskeletal : No joint pain, No Myalgias, No Joint Swelling Skin : No Skin Lesions, No rash Neuro : No Weakness, No Numbness, No Paresthesias, No Loss of Consciousness, No Dizziness, No Headache Psych : No Anxiety/Panic, No Depression, No SI/HI/AH/VH, No Social Issues, Heme/Lymph: No Bruising, No Bleeding,No Lymphadenopathy Endocrine : No Polyuria, No Polydipsia, No Temperature Intolerance PMFSH Past Medical History Medical History Anemia Anxiety disorder Chondrocostal junction syndrome [tietze] COVID-19 Hyperlipidemia Lymphedema Osteomyelitis of sacrum Type 2 diabetes mellitus Surgical History H/O lumbosacral spine surgery Sacral decubitus ulcer, stage IV Social History Social History Household Members: Other Alcohol intake: never Smoking Status: Never smoker Use of substances other than those prescribed or required for medical reasons: No Advance Directives: No service: No Physical Exam Vital Signs: Vital Signs: Last Vital Signs Temp 97.6 F 10/03/20 05:42 Pulse 81 10/03/20 05:42 Resp 16 10/03/20 05:42 BP 124/46 L 10/03/20 05:42 Pulse Ox 99 10/03/20 05:42 Body Mass Index 22.3 Appearance: Alert. Oriented X3. No acute distress. Eyes: Pupils equal, round and reactive to light. ENT: Pharynx normal. Neck: Normal inspection. Neck supple. No lymph nodes noted. No crepitus CVS: Normal heart rate and rhythm. Pulses normal. Normal S1 and S2 Respiratory: No respiratory distress. Breath sounds normal. No Wheezing. No rales Abdomen: Soft and nontender. No rigidity. No distention. good BS x4 : On pelvic exam, patient has moderate amount of liquid feces in the vaginal vault, no obvious fistula seen Skin: Skin warm and dry. Multiple ecchymoses in upper extremities from blood drawn patient has stage III and stage IV decubitus ulcers, filled with feces Extremities: No lower extremity edema. Bilateral edema in both arms, per patient at baseline Neuro: Oriented X 3. No motor deficit. No sensory deficit. Moving all extermities. No slurred speech. Course Course Course Narrative: Unfortunately we could not use IV contrast due to patient's creatinine elevation. We will go ahead and get barium enema. Sign-out given to Dr. Ochoa, if this study is positive for the fistula, surgery consult versus OBGYN consult is needed. At this time, patient is asymptomatic. Medical Decision Making Lab Data Result diagrams: 10/03/20 01:41 10/03/20 01:41 Labs: Lab Results 10/03/20 10/03/20 10/03/20 Range/Units 01:41 01:41 04:38 WBC 6.6 (4.8-10.8) X10*3/uL RBC 3.16 L (4.20-5.50) X10*6/uL Hgb 8.1 L (12.0-16.0) g/dl Hct 25.9 L (37-47) % MCV 82.0 (80-98) fL MCH 25.6 L (27.0-33.0) pg MCHC 31.3 (31.0-35.0) g/dl RDW 19.8 H (11.0-16.0) % Plt Count 189 (160-400) X10*3/uL MPV 10.3 (9.4-12.3) fL Immature Gran % (Auto) 1.1 H (0.0-0.4) % Neut % (Auto) 67.2 (45-73) % Lymph % (Auto) 24.5 (20-40) % [place] % (Auto) 5.9 (2-11) % Eos % (Auto) 1.1 (0-4) % Baso % (Auto) 0.2 (0-2) % Lymph # (Auto) 1.6 (1.2-4.9) X10*3/uL [place] # (Auto) 0.4 (0.1-1.2) X10*3/uL Eos # (Auto) 0.1 (0.0-0.4) X10*3/uL Baso # (Auto) 0.0 (0.0-0.2) X10*3/uL Abs Immat Gran (auto) 0.07 H (0.00-0.03) X10*3/uL Absolute Neuts (auto) 4.4 (2.0-8.3) X10*3/uL Absolute Nucleated RBC 0.000 (0.0-0.012) X10*3/uL Nucleated RBC % (auto) 0.0 (0.0-0.2) /100WBC Sodium 140 (135-145) mmol/L Potassium 4.9 (3.3-5.1) mmol/l Chloride 108 (96-108) mmol/L Carbon Dioxide 15 L (22-29) mmol/L Anion Gap 22 H (12-20) BUN 47 H D (9-16) mg/dL Creatinine 1.66 H (0.5-1.4) mg/dL Estim Creat Clear Calc 24.1 Estimated GFR 30 Random Glucose 73 (60-115) mg/dL Calcium 7.3 L D (8.4-10.2) mg/dL Urine Color ORANGE Urine Appearance TURBID Urine pH 7.0 (5.0-8.0) Ur Specific [place] 1.020 (1.005-1.025) Urine Protein 3+ H (NEG-TRACE) MG/DL Urine Glucose (UA) 100 H (NEG) MG/DL Urine Ketones 15 (NEG) MG/DL Urine Blood 3+ H (NEG) Urine Nitrite POS H (NEG) Ur Leukocyte Esterase 2+ H (NEG) Urine RBC TNTC H (0) /HPF Urine WBC 76-150 H (0-4) /HPF Ur Squamous Epith Cells 1+ /LPF Urine Bacteria 2+ /LPF Urine Mucus 1+ /LPF Discharge Plan Discharge Prescriptions: No Action ceftriaxone 1 gram Recon Soln 1 g IV Q24H 32 Days RF: 0 doxycycline monohydrate 100 mg capsule 100 mg PO BID Qty: 60 RF: 0 ammonium lactate 12 % lotion 1 applic topical DAILY RF: 0 metformin 1,000 mg tablet extended release 24hr 1,000 mg PO DAILY RF: 0 polyethylene glycol 3350 17 gram powder in packet 17 g PO DAILY RF: 0 sennosides [senna] 8.6 mg tablet 8.6 mg PO BEDTIME PRN (Reason: constipation) RF: 0 Culturelle 10 billion cell capsule 1 cap PO BID PRN (Reason: GI upset) RF: 0 diclofenac sodium 1 % gel 4 g topical BID RF: 0 metoprolol tartrate 50 mg tablet 50 mg PO BID RF: 0 oxycodone [OxyContin] 15 mg tablet,oral only,ext.rel.12 hr 15 mg PO Q12H RF: 0 pantoprazole 40 mg tablet,delayed release (DR/EC) 40 mg PO DAILY RF: 0 oxycodone 10 mg tablet 10 mg PO TID PRN (Reason: Pain) RF: 0 acetaminophen 325 mg capsule 650 mg PO Q6H PRN (Reason: Pain) RF: 0 bisacodyl 5 mg tablet,delayed release (DR/EC) 5 mg PO BEDTIME PRN (Reason: Constipation) RF: 0
[2020-10-03 01:47] LABS: MANUAL DIFF FLAG NO
[2020-10-03 01:51] LABS: Basophils Percent Auto 0.2 % (0-2); Eosinophils Absolute Auto 0.1 X10*3/uL (0.0-0.4); Eosinophils Percent Auto 1.1 % (0-4); Hematocrit 25.9 % (37-47); Hemoglobin 8.1 g/dl (12.0-16.0); Imm Gran Abs Auto 0.07 X10*3/uL (0.00-0.03); Imm Gran Pct Auto 1.1 % (0.0-0.4); Lymphocytes Absolute Auto 1.6 X10*3/uL (1.2-4.9); Lymphocytes Percent Auto 24.5 % (20-40); Mean Corpuscular HGB Conc 31.3 g/dl (31.0-35.0); Mean Corpuscular Hemoglobin 25.6 pg (27.0-33.0); Mean Platelet Volume 10.3 fL (9.4-12.3); Monocytes Absolute Auto 0.4 X10*3/uL (0.1-1.2); Monocytes Percent Auto 5.9 % (2-11); Neutrophils Absolute Auto 4.4 X10*3/uL (2.0-8.3); Neutrophils Percent Auto 67.2 % (45-73); Platelet Count 189 X10*3/uL (160-400); Red Blood Count 3.16 X10*6/uL (4.20-5.50); Red Cell Distribution Width 19.8 % (11.0-16.0); White Blood Count 6.6 X10*3/uL (4.8-10.8)
[2020-10-03 02:47] LABS: Anion Gap 22 (12-20); Blood Urea Nitrogen 47 mg/dL (9-16); Calcium 7.3 mg/dL (8.4-10.2); Carbon Dioxide 15 mmol/L (22-29); Chloride 108 mmol/L (96-108); Creatinine Clr Calc Pharmacy 24.1; Estimated Glomerular Filt Rate 30; Glucose Random 73 mg/dL (60-115); Potassium 4.9 mmol/l (3.3-5.1); Sodium 140 mmol/L (135-145)
--- NOTE | 2020-10-03 03:19 | PC.NURSE ---
MULTIPLE RNS ATTEMPTED IV. UNSUCCESSFUL.
--- NOTE | 2020-10-03 04:07 | PC.NURSE ---
PATIENT WAS INC OF STOOL ,PATIENT WAS CLEAN CHANGE AND REPOSITION BY MYSELF AND PATY MAYS .
[2020-10-03 04:45] LABS: Glucose Urine UA 100 MG/DL (NEG); Leukocyte Esterase Urine 2+ (NEG); Nitrite Urine POS (NEG); Urine Blood 3+ (NEG); Urine Ketones 15 MG/DL (NEG); Urine Protein 3+ MG/DL (NEG-TRACE)
--- NOTE | 2020-10-03 04:48 | PC.NURSE ---
Pt has extensive wounds to rt labia fold, coccyx, and sacrum. tunneling noted. fecal matter was caked inside dressings. Unknown when last changed. see pictures in paper chart. Wounds irrigated with normal saline. Catheter removed., md preformed internal exam. Fecal matter cleansed from vaginal canal and cervix by provider. Breakdown noted in vulva. Liquid fecal matter cleaned. kalin area cleansed. vaginal wounds cleansed and dressed. new catheter placed by ert. UA sent. Urine was reddend and cloudy. pt repositioned off back for comfort and to reduce pressure wounds. Pt reporting severe pain in hips after. md aware. 3rd rn to attempt iv.
[2020-10-03 04:50] LABS: Appearance Urine TURBID; Color Urine ORANGE
[2020-10-03 04:58] LABS: Bacteria Urine 2+ /LPF; Mucus Urine 1+ /LPF; RBC Urine TNTC /HPF (0); Squamous Epithelial Cell Urine 1+ /LPF
--- NOTE | 2020-10-03 06:14 | PC.NURSE ---
PER MD, HOLD ON PLACING IJ. CONSULT FOR SURGERY WILL BE PLACED.
--- NOTE | 2020-10-03 06:51 | FL_ITS ---
EXAMINATION: GASTROGRAFIN ENEMA CLINICAL INFORMATION: Evaluate for rectovaginal fistula. COMPARISON: CT abdomen and pelvis 09/11/2020 TECHNIQUE: Following a KUB a retrograde Gastrografin enema was performed with a balloon inflated rectal tube. FINDINGS: On the lateral KUB there is L5 L5-S1 fusion with posterior hardware. No radiopaque density seen in the pelvis. Following retrograde administration of 50/50 diluted Gastrografin there is normal extension of Gastrografin from the rectum, sigmoid, descending to the transverse colon. There was no communication seen between rectum, sigmoid colon and the vagina. No extravasation of Gastrografin seen in the retroperitoneum or intraperitoneum. The transverse and ascending colon was not evaluated. The patient is unable to retain the inflated rectal tube for longer than 2 minutes. 2 attempts were performed to complete the Gastrografin enema for evaluation of ascending colon but unsuccessful FL/FL enema w gastrografin IMPRESSION: No evidence of rectovaginal fistula seen on a 50/50 diluted Gastrografin study.
[2020-10-03] MEDS: cefTRIAXone sodium 1 GM, Lidocaine HCl 1 % MPF 2.1 ML IM (07:48)
--- NOTE | 2020-10-03 08:26 | PC.NURSE ---
pt to imaging at this time
--- NOTE | 2020-10-03 13:57 | ED_ITS ---
HPI - General Adult General Chief complaint: General Medical Stated complaint: Unknown Time Seen by Provider: 10/03/20 00:22 Source: patient Mode of arrival: EMS Limitations: no limitations Related Data Home Medications Medication Instructions Recorded Confirmed Lactobacillus rhamnosus GG 10 1 cap PO BID PRN 07/12/20 09/11/20 billion cell capsule acetaminophen 325 mg capsule 650 mg PO Q6H PRN 07/12/20 09/11/20 ammonium lactate 12 % lotion 1 applic TOPICAL DAILY 07/12/20 09/11/20 bisacodyl 5 mg tablet,delayed 5 mg PO BEDTIME PRN 07/12/20 09/11/20 release diclofenac sodium 1 % topical gel 4 g TOPICAL BID g 07/12/20 09/11/20 metformin 1,000 mg tablet,extended 1,000 mg PO DAILY 07/12/20 09/11/20 release 24hr metoprolol tartrate 50 mg tablet 50 mg PO BID 07/12/20 09/11/20 oxycodone 10 mg tablet 10 mg PO TID PRN 07/12/20 09/11/20 oxycodone 15 mg tablet,crush 15 mg PO Q12H 07/12/20 09/11/20 resistant,extended release 12 hr pantoprazole 40 mg tablet,delayed 40 mg PO DAILY 07/12/20 09/11/20 release polyethylene glycol 3350 17 gram 17 g PO DAILY 07/12/20 09/11/20 oral powder packet sennosides 8.6 mg tablet 8.6 mg PO BEDTIME PRN 07/12/20 09/11/20 Previous Rx's Medication Instructions Recorded ceftriaxone 1 g IV Q24H 32 Days ea 09/22/20 doxycycline monohydrate 100 mg PO BID #60 cap 09/22/20 Allergies Allergy/AdvReac Type Severity Reaction Status Date / Time clindamycin Allergy Rash Verified 09/12/20 03:19 [facility] Past Medical History Medical History Anemia Anxiety disorder Chondrocostal junction syndrome [tietze] COVID-19 Hyperlipidemia Lymphedema Osteomyelitis of sacrum Type 2 diabetes mellitus Surgical History H/O lumbosacral spine surgery Sacral decubitus ulcer, stage IV Social History Social History Household Members: Other Alcohol intake: never Smoking Status: Never smoker Use of substances other than those prescribed or required for medical reasons: No Advance Directives: No service: No Physical Exam Vital Signs: Vital Signs: Last Vital Signs Temp 97.8 F 10/03/20 15:41 Pulse 100 10/03/20 15:41 Resp 16 10/03/20 15:41 BP 99/38 L 10/03/20 15:41 Pulse Ox 98 10/03/20 15:41 Body Mass Index 22.3 Medical Decision Making Lab Data Result diagrams: 10/03/20 01:41 10/03/20 01:41 Labs: Lab Results 10/03/20 10/03/20 10/03/20 Range/Units 01:41 01:41 04:38 WBC 6.6 (4.8-10.8) X10*3/uL RBC 3.16 L (4.20-5.50) X10*6/uL Hgb 8.1 L (12.0-16.0) g/dl Hct 25.9 L (37-47) % MCV 82.0 (80-98) fL MCH 25.6 L (27.0-33.0) pg MCHC 31.3 (31.0-35.0) g/dl RDW 19.8 H (11.0-16.0) % Plt Count 189 (160-400) X10*3/uL MPV 10.3 (9.4-12.3) fL Immature Gran % (Auto) 1.1 H (0.0-0.4) % Neut % (Auto) 67.2 (45-73) % Lymph % (Auto) 24.5 (20-40) % [place] % (Auto) 5.9 (2-11) % Eos % (Auto) 1.1 (0-4) % Baso % (Auto) 0.2 (0-2) % Lymph # (Auto) 1.6 (1.2-4.9) X10*3/uL [place] # (Auto) 0.4 (0.1-1.2) X10*3/uL Eos # (Auto) 0.1 (0.0-0.4) X10*3/uL Baso # (Auto) 0.0 (0.0-0.2) X10*3/uL Abs Immat Gran (auto) 0.07 H (0.00-0.03) X10*3/uL Absolute Neuts (auto) 4.4 (2.0-8.3) X10*3/uL Absolute Nucleated RBC 0.000 (0.0-0.012) X10*3/uL Nucleated RBC % (auto) 0.0 (0.0-0.2) /100WBC Sodium 140 (135-145) mmol/L Potassium 4.9 (3.3-5.1) mmol/l Chloride 108 (96-108) mmol/L Carbon Dioxide 15 L (22-29) mmol/L Anion Gap 22 H (12-20) BUN 47 H D (9-16) mg/dL Creatinine 1.66 H (0.5-1.4) mg/dL Estim Creat Clear Calc 24.1 Estimated GFR 30 Random Glucose 73 (60-115) mg/dL Calcium 7.3 L D (8.4-10.2) mg/dL Urine Color ORANGE Urine Appearance TURBID Urine pH 7.0 (5.0-8.0) Ur Specific [place] 1.020 (1.005-1.025) Urine Protein 3+ H (NEG-TRACE) MG/DL Urine Glucose (UA) 100 H (NEG) MG/DL Urine Ketones 15 (NEG) MG/DL Urine Blood 3+ H (NEG) Urine Nitrite POS H (NEG) Ur Leukocyte Esterase 2+ H (NEG) Urine RBC TNTC H (0) /HPF Urine WBC 76-150 H (0-4) /HPF Ur Squamous Epith Cells 1+ /LPF Urine Bacteria 2+ /LPF Urine Mucus 1+ /LPF Discharge Plan Discharge Clinical Impression: Discharge from the vagina Patient Disposition: Home, Self-Care Additional Instructions: The Gastrografin enema did not reveal an obvious fistula from your colon to your vagina. I did discuss this finding with your advanced medical practice administrator, Corrie Adamson and we are going to send you back to your care facility. Prescriptions: No Action ceftriaxone 1 gram Recon Soln 1 g IV Q24H 32 Days RF: 0 doxycycline monohydrate 100 mg capsule 100 mg PO BID Qty: 60 RF: 0 ammonium lactate 12 % lotion 1 applic topical DAILY RF: 0 metformin 1,000 mg tablet extended release 24hr 1,000 mg PO DAILY RF: 0 polyethylene glycol 3350 17 gram powder in packet 17 g PO DAILY RF: 0 sennosides [senna] 8.6 mg tablet 8.6 mg PO BEDTIME PRN (Reason: constipation) RF: 0 Culturelle 10 billion cell capsule 1 cap PO BID PRN (Reason: GI upset) RF: 0 diclofenac sodium 1 % gel 4 g topical BID RF: 0 metoprolol tartrate 50 mg tablet 50 mg PO BID RF: 0 oxycodone [OxyContin] 15 mg tablet,oral only,ext.rel.12 hr 15 mg PO Q12H RF: 0 pantoprazole 40 mg tablet,delayed release (DR/EC) 40 mg PO DAILY RF: 0 oxycodone 10 mg tablet 10 mg PO TID PRN (Reason: Pain) RF: 0 acetaminophen 325 mg capsule 650 mg PO Q6H PRN (Reason: Pain) RF: 0 bisacodyl 5 mg tablet,delayed release (DR/EC) 5 mg PO BEDTIME PRN (Reason: Constipation) RF: 0 Interventions: ED Discharge Assessment Last Done: 10/03/20 18:01 Discharge Date/Time: 10/03/20 18:01
--- NOTE | 2020-10-03 14:49 | PC.NURSE ---
dressings to coccyx soiled w/ serosanguinous drainage. wound care provided. patient repositioned for comfort
--- NOTE | 2020-10-03 15:37 | PC.NURSE ---
report given to RN at [facility]
== END 2020-10-03 18:01 | disposition home or self-care (01) ==
PROVIDERS: Emergency Medicine; Emergency Provider Emergency Medicine Emergency Medical Services
DX: N82.3 Fistula of vagina to large intestine (principal); R10.2 Pelvic and perineal pain; Z79.899 Other long term (current) drug therapy; Z86.16 Personal history of COVID-19
CPT/HCPCS: 36415; 72192; 74270; 80048; 81001; 85025; 87086; 99284; J0696